=== PATIENT | female | born 1950 | race Caucasian/White ===

== ENCOUNTER 2022-02-25 19:42 | Emergency (ER) | payer MEDICARE, SELFPAY ==
[2022-02-25 19:43] VITALS: BP 168/75; PULSE 61; RESP 15; TEMP 36.1; O2SAT 96; BMI 48.4
--- NOTE | 2022-02-25 19:49 | RAD_ITS ---
STUDY: XR Knee Complete 4 Views or More 02/25/2022 8:34 PM REASON FOR EXAM: Female, 71 years old. INJURY TECHNIQUE: XR Knee Complete 4 Views or More LEFT COMPARISON: None FINDINGS: Normal visualized distal femur. Normal visualized proximal tibia and fibula. Normal proximal tibiofibular articulation. There is mild degenerative arthrosis of the medial femorotibial compartment. There is mild degenerative arthrosis of the lateral femorotibial compartment. There is moderate degenerative arthrosis of the patellofemoral articulation. The soft tissue structures are unremarkable. RAD/Knee 4 or More Views IMPRESSION: Degenerative arthrosis. Electronically Signed: Tushar Cummings MD at 20:35 EDT ,
--- NOTE | 2022-02-25 20:05 | RAD_ITS ---
STUDY: XR Ankle Min 3 Views REASON FOR EXAM: Female, 71 years old. ANKLE PAIN TECHNIQUE: XR Ankle Min 3 Views LEFT COMPARISON: None. FINDINGS: Normal visualized distal tibia and fibula. Normal medial and lateral malleoli. Degenerative findings of the ankle mortise. There is an enthesophyte involving the posterior superior calcaneus at the site of insertion of the Achilles tendon. The visualized subtalar, talonavicular, calcaneocuboid and tarsal articulations are normal. There is a plantar calcaneal spur. There is soft tissue swelling around the ankle. RAD/Ankle min 3 Views IMPRESSION: There is soft tissue swelling. Electronically Signed: Tushar Cummings MD at 20:35 EDT ,
--- NOTE | 2022-02-25 20:27 | EDS_ITS ---
HPI History of Present Illness Chief Complaint: Lower Extremity Injury Informant: patient Onset/Context/Timing Onset: Today Current Severity: Mild Maximum Severity: Moderate Narrative Narrative: Patient presents secondary to left knee and ankle injury. She states that she twisted her left knee and felt a pop. She then rolled her left ankle. She has difficulty ambulating. She has not yet taken anything for pain. PFSH PFS Medical History Coronary artery disease Home Medications hydrocodone-acetaminophen 5-325mg 5mg-325mg 1 tab PO Q6H PRN pain 3 days #10 tabs 02/25/22 [Rx Last Taken Unknown] Allergy/AdvReac Type Severity Reaction Status Date / Time No Known Allergies Allergy Verified 02/25/22 19:47 Surgical History H/O heart artery stent Social History Smoking Status: Never smoker ROS ROS ED Constitutional Constitutional ED: Denies chills or fever(s) Eyes Eyes: Denies change in vision or discharge from eye(s) ENT ENT ED: Denies discharge from eye(s), rhinorrhea or sore throat Cardiovascular Cardiovascular: Denies chest pain or palpitations Respiratory/Chest Respiratory/Chest: Denies cough or dyspnea Gastrointestinal Gastrointestinal: Denies abdominal pain, diarrhea, nausea or vomiting Genitourinary Genitourinary ED: Denies dysuria Musculoskeletal Musculoskeletal: Reports extremity pain; Denies back pain Integumentary Denies Abrasions or rash Neurologic Neurologic: Denies headache(s) or weakness Psychiatric Psychiatric: Denies anxiety or depression Allergic/Immunologic Allergic/Immunologic ED: Denies lip swelling or urticaria EXAM Physical Exam Const Vital Signs: 02/25/22 19:43 Temperature 97.0 F L Temperature Source Temporal Pulse Rate 61 Respiratory Rate 15 Blood Pressure 168/75 H Blood Pressure Mean 106 Pulse Ox 96 Oxygen Delivery Method Room Air Positive well nourished and well developed General Appearance ED: well developed HEENT Reports normocephalic and head/scalp atraumatic Eyes PERRL and EOMs intact bilaterally Neck supple Chest Wall inspection of chest normal and palpation of chest normal Resp normal respiratory effort and clear to auscultation bilaterally Cardio regular rate and regular rhythm GI normal to inspection, nondistended, normoactive bowel sounds Palpation: soft Extremity Extremity Narrative: Mild tenderness outpatient over the anterior left knee and lateral left ankle. Minimal edema noted. No abrasions or ecchymosis. Decreased range of motion secondary to pain. No joint laxity noted. Neuro oriented x3 and no sensory deficits noted Sensorium / Orientation: alert Psych mental status grossly normal Skin no rashes or lesions noted MDM MDM MDM Narrative Medical decision making narrative: Patient was given Cecilton for pain. X-rays of the left knee and left ankle were obtained per nursing protocol. Radiography Diagnostic Testing: Clinical Impression(s) from Imaging Studies Knee X-Ray 02/25/22 19:49 IMPRESSION: Degenerative arthrosis. Electronically Signed: Tushar Cummings MD at 20:35 EDT , Ankle X-Ray 02/25/22 20:05 IMPRESSION: There is soft tissue swelling. Electronically Signed: Tushar Cummings MD at 20:35 EDT , Treatment and Re-Evaluation Narrative: X-rays of the left ankle and left knee per my interpretation reveal no obvious fracture. Arthritic changes are noted. Radiology interpretation is reviewed and agrees. Patient did get up and attempt to ambulate with nursing staff. They states she will admitted about 5 feet and then required wheelchair. At this time patient is sitting with her leg propped up. She does not feel that she needs to be admitted and her will be able to help her at home. She has a walker that she can use at home. She has an appointment with her orthopedic doctor next week and feels that if she calls him tomorrow she can be seen sooner. She will be given a prescription for Cecilton that we sent to [facility] [place] [facility] for her. Discharge Plan Triage Chief Complaint: Lower Extremity Injury ED Provider: Reyna Landon Dx/Rx/DC Orders Clinical Impression: Fall, Left knee sprain, Left ankle sprain Instructions: ED Knee Sprain, ED Ankle Sprain (Adult) Prescriptions: New hydrocodone-acetaminophen 5-325 mg tablet 1 tab PO Q6H PRN (Reason: pain) 3 Days Qty: 10 0RF Primary Care Provider: CIERRA LEONG Referrals: CIERRA LEONG [Other] Activity Restrictions/Additional Instructions: Follow-up with your orthopedic doctor as discussed. Disposition Disposition: Home, Self Care
[2022-02-25] MEDS: HYDROcodone Bitartrate/Apap 5/325 Tablet PO (20:33)
--- NOTE | 2022-02-25 21:28 | ED.RN ---
THIS RN ATTEMPTS TO AMBULATE PATIENT TO RESTROOM WITH WALKER. PT AMBULATES 5 FEET AND REQUIRES TO SIT IN A WHEELCHAIR TO GET TO THE RESTROOM. DR. ROONEY NOTIFIED.
[2022-02-25 21:41] VITALS: RESP 18
== END 2022-02-25 21:44 | disposition home or self-care (01) ==
PROVIDERS: Emergency Provider Emergency Medicine; Visit Provider Emergency Medicine
DX: S83.92XA Sprain of unspecified site of left knee, initial encounter (principal); S93.402A Sprain of unspecified ligament of left ankle, initial encounter; X50.1XXA Overexertion from prolonged static or awkward postures, initial encounter
CPT/HCPCS: 73564; 73610; 99283

== ENCOUNTER → 2022-09-01 | Outpatient (CLI) | payer MEDICARE, SELFPAY ==
--- NOTE | 2022-09-01 12:54 | BI_ITS ---
MAMMOGRAPHY - BILATERAL SCREENING REASON FOR EXAM: Female, 71 years old. Routine annual screening examination. PERTINENT HISTORY: Sister with breast cancer. TECHNIQUE: Digital bilateral breast ryan (3D mammographic acquisition) in the CC and MLO projections. 2-D mediolateral oblique (MLO) and craniocaudad (CC) views of both breasts were obtained. CAD: Full Field Digital Mammography with Computer Added Detection was performed. COMPARISON: Comparison is made with prior examination dated December 06, 2020. FINDINGS: Breast Composition: The breasts are almost entirely fatty. There are no dominant masses or suspicious calcifications. Stable small benign-appearing bilateral axillary lymph. No other significant abnormalities are identified. There has been no significant change since the prior study. BI/SCRN MAMM (CAD)W/RYAN BILAT IMPRESSION: Stable bilateral screening mammogram. Yearly follow-up mammogram recommended. (A) ASSESSMENT CATEGORY: BIRADS Category 2: Benign. A letter regarding these results will be sent to the patient by the facility within 30 days. Approximately 10% of breast cancers are not detected by mammography. A normal mammogram should not delay biopsy of a clinically suspicious abnormality. [id number] Electronically Signed: Pb Pozo MD at 14:13 EDT ,
== END | disposition home or self-care (01) ==
LOC: OPBI 12:49
DX: Z12.31 Encounter for screening mammogram for malignant neoplasm of breast (principal)
CPT/HCPCS: 77063; 77067

== ENCOUNTER → 2023-02-25 | Outpatient (CLI) | payer MEDICARE, SELFPAY ==
[2023-02-25 11:04] LABS: Vitamin D,25 Hydroxy 33.8 ng/mL
[2023-02-25 11:15] LABS: ALB/GLOB Ratio 0.9 RATIO (0.9-2.4); AST(SGOT) 16 U/L (15-37); Alanine Aminotransfer ALT/SGPT 21 U/L (13-56); Albumin, Serum 3.5 g/dL (3.2-5.0); Alkaline Phosphatase 98 U/L (45-117); Anion Gap 2 (5-15); BUN 13 mg/dL (7-18); BUN/Creat Ratio 14.7 RATIO (10-20); Calcium,Total 9.1 mg/dL (8.5-10.1); Chloride 107 mmol/L (98-107); Cholesterol 148 mg/dL (200); Creatinine, Serum 0.88 mg/dL (0.55-1.02); EST Glomerular Filtration Rate 66 mL/min (>60); Est Glom Filt Rate - Afr Amer 80 mL/min (>60); Globulin 4.1 g/dL (2.2-4.2); Glucose 90 mg/dL (74-106); High Density Lipoprotein 62 mg/dL; Potassium 4.4 mmol/L (3.5-5.1); Protein, Total 7.6 g/dL (6.4-8.2); Sodium Level 139 mmol/L (136-145); Triglycerides 75 mg/dL; Very Low Density Lipoprotein 15 mg/dL (5-40)
== END | disposition home or self-care (01) ==
DX: E78.2 Mixed hyperlipidemia (principal); E55.9 Vitamin D deficiency, unspecified
CPT/HCPCS: 36415; 80053; 80061; 82306

== ENCOUNTER → 2023-04-13 | Outpatient (CLI) | payer MEDICARE, SELFPAY ==
--- NOTE | 2023-04-13 07:01 | ECHOCS_ITS ---
Reason For Study: CAD/ASHD Procedure This was a 2D Doppler, Color Flow transthoracic echocardiogram. The study was technically difficult. Contrast injection was performed. Exam performed in department. Left Ventricle Normal LV size. Left ventricular systolic function is normal. The estimated ejection fraction is 55 %. No regional wall motion abnormalities noted. Right Ventricle Normal RV size. Normal systolic function. Atria The left atrium is mildly enlarged. Normal right atrium. Mitral Valve Normal mitral valve. Tricuspid Valve Normal tricuspid valve. Mild tricuspid valve insufficiency. Pulmonary artery systolic pressure is 30 mmHg. Aortic Valve The aortic valve is not well visualized. Pulmonic Valve Normal pulmonic valve. Great Vessels Normal aortic root. The pulmonary artery is normal size. Normal inferior vena cava. Pericardium/Pleural No pericardial effusion. Medication Diluted definity 2.5ml given slow IV push to enhance endocardial definition. MMode/2D Measurements & Calculations LVIDd: 4.3 cm IVSd: 1.2 cm Ao root diam: 3.5 cm LVIDs: 3.6 cm LVPWd: 1.1 cm FS: 15.4 % LAV(MOD-bp): 85.8 ml LVAd ap4: 35.0 cm2 SV(MOD-sp4): 73.3 ml LAV(MOD-bp) Indexed: 40.2 ml/m2 LVLd ap4: 7.8 cm LAV(MOD-sp2): 82.7 ml EDV(MOD-sp4): 130.4 ml LAV(MOD-sp4): 78.1 ml EDV(sp4-el): 133.6 ml LVAs ap4: 21.5 cm2 LVLs ap4: 6.7 cm ESV(MOD-sp4): 57.1 ml ESV(sp4-el): 58.7 ml EF(MOD-sp4): 56.2 % EF(sp4-el): 56.1 % SV(sp4-el): 74.9 ml LA A4 area: 24.0 cm2 LA dimension(2D): 4.2 cm RA A4 area: 17.9 cm2 TAPSE: 2.3 cm Time Measurements MV dec time: 0.20 sec Doppler Measurements & Calculations MV E max mahin: 77.8 cm/sec Lat Peak E' Mahin: 9.2 cm/sec Med Peak E' Mahin: 4.2 cm/sec MV A max mahin: 73.0 cm/sec E/E' lat: 8.4 E/E' med: 18.5 MV E/A: 1.1 MV V2 max: 71.1 cm/sec MV dec slope: 399.0 cm/sec2 Ao V2 max: 144.3 cm/sec MV max P.0 mmHg Ao max P.3 mmHg MV V2 mean: 44.8 cm/sec Ao V2 mean: 92.9 cm/sec MV mean P.91 mmHg Ao mean P.1 mmHg MV V2 VTI: 29.4 cm Ao V2 VTI: 34.7 cm AV (velocity ratio): 0.75 LV V1 max: 107.0 cm/sec PA V2 max: 77.5 cm/sec TR max mahin: 254.3 cm/sec LV V1 max P.6 mmHg PA V2 mean: 51.0 cm/sec TR max P.9 mmHg LV V1 mean P.6 mmHg LV V1 mean: 75.2 cm/sec LV V1 VTI: 26.0 cm ECHO/Echo Complete W/ Contrast Interpretation Summary Normal LV size. Left ventricular systolic function is normal. The estimated ejection fraction is 55 %. Contrast injection was performed. Ordering Physician: Keith Roman Referring Physician: Keith Roman Performed By: Radha Dos Santos RCS
--- NOTE | 2023-04-13 14:00 | STRESSREP ---
Stress Test Report Pharmacologic myocardial perfusion stress test. 72-year-old lady with a history of chest pain Resting EKG demonstrates sinus rhythm with a rate of 60 bpm. Resting blood pressure is 134/72 mmHg. 0.4 mg of regadenoson was infused per usual protocol followed by rapid intravenous saline flush injection. Continuous EKG monitoring was performed. The maximum heart rate was 85 bpm which was 58% of max impacted heart rate the maximum workload was 1 metabolic equivalent. At rest there were no ST or T wave changes noted to suggest ischemia and at peak infusion nonspecific ST changes were noted which did not meet the criteria for ischemia. No clinical angina is noted. The final blood pressure was 114/50 mmHg. Myocardial perfusion protocol. 15 mCi of technetium 99m sestamibi was injected at rest. 0.4 mg of regadenoson was infused per usual protocol. At peak infusion 45.0 mCi of technetium 99m sestamibi was injected stress images were obtained stress and rest images were reconstructed and compared in the short axis vertical long and horizontal long axis. Gated images were also obtained. Perfusion SPECT analysis: Review of the stress images demonstrate normal uptake of tracer noted in all areas of the myocardium. There is reduction of uptake noted in the mid anterior wall on the stress images. The resting images similar demonstrated normal uptake of tracer noted in all areas of the myocardium. The above is suggestive of mid anterior ischemia. Gated SPECT analysis: The gated ejection fraction is 71. Conclusion: Abnormal pharmacologic myocardial perfusion stress test. There is anterior myocardial ischemia present. Preserved ejection fraction.
== END | disposition home or self-care (01) ==
PROVIDERS: Referring Provider Internal Medicine Cardiovascular Disease; Visit Provider Internal Medicine Cardiovascular Disease
DX: I25.10 Atherosclerotic heart disease of native coronary artery without angina pectoris (principal)
CPT/HCPCS: 78452; 93017; 93306; A9500; Q9957; A4216; C8929; J2785

== ENCOUNTER 2023-06-08 09:17 | Day surgery (SDC) | payer MEDICARE, SELFPAY ==
--- NOTE | 2023-05-13 10:22 | RAD_ITS ---
STUDY: X-RAY CHEST REASON FOR EXAM: Female, 72 years old. Preop for heart catheter TECHNIQUE: PA and lateral views of the chest. COMPARISON: None. FINDINGS: The lungs are clear and expanded. There is no demonstrated pleural abnormality. Normal size heart. Normal mediastinum and zaire. Normal visualized pulmonary arteries. There is atherosclerotic calcification of the aortic arch with tortuosity. There are diffuse degenerative changes of the visualized thoracic spine. Replaced left glenohumeral joint free of complication There is no demonstrated abnormality of the visualized soft tissue structures of the upper abdomen. RAD/Chest PA and Lateral IMPRESSION: No acute pulmonary process Electronically Signed: Gumaro Lopez MD at 10:49 EST ,
[2023-05-13 10:32] LABS: Absolute Lymphocyte Count 3.03 X10^3/uL (0.83-4.51); Basophil# 0.04 X10^3/uL; Basophil% 0.5 % (0-1); Eosinophil# 0.25 X10^3/uL; Eosinophils% 3.1 % (0-5); Hemoglobin 13.6 g/dL (12.0-15.0); Lymphocyte # 3.03 X10^3/ul (0.83-4.51); Mean Corp Hgb Conc 30.9 g/dL (32-36); Mean Corpuscular Hgb 28.6 pg (27.0-32.0); Mean Corpuscular Volume 92.6 fL (81-99); Mean Platelet Vol. 8.8 fl (6.2-12.0); Monocyte# 0.61 X10^3/uL; Monocyte% 7.6 % (0-10); NRBC Flagged by Analyzer 0 % (0-5); Neutrophil # 4.03 X10^3/uL (2.7-7.7); Neutrophil % 50.5 % (47-70); Platelet Count 285 K/mm3 (150-450); RBC Distribution Width CV 13.7 % (11.6-14.6); RBC Distribution Width SD 46.9 fl (35.1-43.9); Red Blood Count 4.75 M/mm3 (4.2-5.4)
[2023-05-13 11:00] LABS: Anion Gap 2 (5-15); BUN 20 mg/dL (7-18); BUN/Creat Ratio 23.6 RATIO (10-20); Calcium,Total 9.2 mg/dL (8.5-10.1); Chloride 108 mmol/L (98-107); Creatinine, Serum 0.85 mg/dL (0.55-1.02); EST Glomerular Filtration Rate 70 mL/min (>60); Est Glom Filt Rate - Afr Amer 84 mL/min (>60); Glucose 98 mg/dL (74-106); Potassium 4.2 mmol/L (3.5-5.1); Sodium Level 140 mmol/L (136-145)
--- NOTE | 2023-05-19 16:08 | HP.PCM_ITS ---
History and Physical Date of Admission: 05/29/23 This is a 72-year-old lady who presents today for a cardiac catheterization, following an abnormal stress test. She has a history of coronary artery disease, hypertension, hyperlipidemia status post PCI remotely who underwent a pharmacologic stress test in January 2020 demonstrating apical ischemia. She subsequently underwent a cardiac catheterization with demonstrated preserved left ventricular systolic function, left main coronary artery which was noted to be normal, left circumflex artery with 20 to 30% discrete proximal plaque, second obtuse marginal branch with ostial 50% stenosis, tiny third obtuse marginal branch posterior descending artery and obtuse marginal. The left anterior descending artery had mild calcification in the proximal LAD with an eccentric 50% stenosis and the vessel continued with no high-grade stenosis. The right coronary artery was previously stented and had mild diffuse 40% in- stent stenosis. Medical therapy was recommended. She has continued the same and has done well denying any chest pain or shortness of breath or paroxysmal nocturnal dyspnea or pedal edema. She does have some dyspnea on exertion however. Her blood pressure has been under good control. She presents here for an evaluation and continued care because she is relocating to the area. Intake Vital Signs See EMR Allergies See EMR Medications See EMR PFSH Medical History Barretts esophagus Carpal tunnel syndrome Cervical disc disorder Chronic GERD Coronary arteriosclerosis in [place] artery Coronary artery disease Depressive disorder DJD (degenerative joint disease) Essential (primary) hypertension Hiatal hernia Hypothyroidism Mixed hyperlipidemia Steatosis of liver Vitamin D deficiency Surgical History H/O heart artery stent H/O tubal ligation History of cholecystectomy History of PTCA Family History Sister Breast cancer Social History Smoking Status: Never smoker ROS Const Const: Positive for headache(s) and difficulty sleeping; Negative for fatigue, weakness or daytime sleepiness Eyes Eyes: Negative for change in vision ENT ENT: Positive for headache(s); Negative for dizziness or Nosebleed/epistaxis Cardio Chest Pain: No Palpitations: No Edema: Bilateral (BLE sometimes ) Resp Respiratory: Positive for SOB with activity; Negative for SOB at rest, SOB orthopnea\SOB lying down or Cough GI GI: Negative nausea, vomiting or heartburn Neuro Neuro: Positive for headache(s); Negative for dizziness, lightheadedness, near syncope or weakness Endo Endo: Negative for fatigue Cardiology Exam Const Appearance: cooperative, healthy appearing, no acute distress, well developed and well groomed Nutritional Appearance: average body habitus and well nourished Orientation: alert, awake and oriented x3 Head Head: normal to inspection, normocephalic and atraumatic Ears: hearing grossly normal bilaterally and external ears normal Nose: external nose normal, nares normal, nasal mucous membranes and turbinates normal, septum normal and no nasal discharge Face and Sinus: face symmetric Mouth: oral mucosae normal, tongue normal, oropharynx normal and moist mucous membranes Teeth and gingiva: dentition normal Throat: posterior oropharynx normal, tonsils normal and uvula midline Eyes General: appearance normal, both eyes and all related structures Eyelids: eyelids normal Conjunctivae: conjunctivae normal Pupils: PERRL, normal by confrontation and accommodation normal EOM: EOM intact bilaterally Neck Neck: normal visual inspection, trachea midline and no JVD JVD: +5 Carotids: normal carotid upstroke and bounding pulses Chest Chest inspection: normal inspection of the chest, symmetric chest movement and normal respiratory effort Auscultation: Bilateral: Clear to Auscultation Cardio Palpation: normal PMI Rate: regular rate Rhythm: regular rhythm Heart sounds: S1 normal, S2 normal and normal, physiologic split S2; Negative rub, gallop or murmur GI GI: normal to inspection, soft, no hepatosplenomegaly and bowel sounds present Neuro General: patient alert, patient awake, patient oriented x3, gait normal, moves all extremities and no focal sensory deficit Skin Skin: no rashes or lesions noted Extremities Pulses: Normal: Right Femoral Pulse, Left Femoral Pulse, Right Dorsalis Pedis Pulse, Left Dorsalis Pedis Pulse, Right Posterior Tibial Pulse, Left Posterior Tibial Pulse, Right Radial Pulse and Left Radial Pulse Lower Extremity Edema: None: Bilateral Musculoskel Musculoskeletal: No joint tenderness Psych Psychological: normal affect Supplemental Info Supplemental Information Stress Test (Lexiscan) 01/19/20 ([facility]) 01/19/20: Conclusion There is small sized area of moderate ischemia involving the mid anterior wall Post stress: Global systolic function is normal. EF=72%. The LV end-diastolic volume was 95ccs. The LV end-systolic volume was 27ccs. The stroke volume was 68ccs. At rest, the ejection fraction was 68%. Left Heart Cath 01/27/20 ([facility]): Conclusion Normal LV ejection fraction of 65-70% without abnormal wall motion abnormality. Borderline elevated LVEDP 17 mmHg Nonobstructive coronary artery disease Proximal LAD 50% discrete stenosis with mild calcification Mild in-stent restenosis less than 40% in the mid RCA without any significant angiographic stenosis Left circumflex artery, OM2, subbranch (upper branch, very small sized vessel) has 50-60% ostial stenosis Stress test from 04/13/2023: Pharmacologic myocardial perfusion stress test. 72-year-old lady with a history of chest pain Resting EKG demonstrates sinus rhythm with a rate of 60 bpm. Resting blood pressure is 134/72 mmHg. 0.4 mg of regadenoson was infused per usual protocol followed by rapid intravenous saline flush injection. Continuous EKG monitoring was performed. The maximum heart rate was 85 bpm which was 58% of max impacted heart rate the maximum workload was 1 metabolic equivalent. At rest there were no ST or T wave changes noted to suggest ischemia and at peak infusion nonspecific ST changes were noted which did not meet the criteria for ischemia. No clinical angina is noted. The final blood pressure was 114/50 mmHg. Myocardial perfusion protocol. 15 mCi of technetium 99m sestamibi was injected at rest. 0.4 mg of regadenoson was infused per usual protocol. At peak infusion 45.0 mCi of technetium 99m sestamibi was injected stress images were obtained stress and rest images were reconstructed and compared in the short axis vertical long and horizontal long axis. Gated images were also obtained. Perfusion SPECT analysis: Review of the stress images demonstrate normal uptake of tracer noted in all areas of the myocardium. There is reduction of uptake noted in the mid anterior wall on the stress images. The resting images similar demonstrated normal uptake of tracer noted in all areas of the myocardium. The above is suggestive of mid anterior ischemia. Gated SPECT analysis: The gated ejection fraction is 71. Conclusion: Abnormal pharmacologic myocardial perfusion stress test. There is anterior myocardial ischemia present. Preserved ejection fraction. Assessment and Plan Assessment and Plan (1) Coronary artery disease: Status: Acute Plan: She does have a history of coronary artery disease status post previous angioplasty and stenting. Her stress test from 04/13/2023 was abnormal, and d emonstrated anterior myocardial ischemia. Would like to proceed with a cardiac catheterization to further assess this. Depending on results, further recommendations will be made. (2) Abnormal Stress Test: Will proceed with cardiac catheterization.
[2023-05-28 08:23] VITALS: BMI 47.2
--- NOTE | 2023-06-08 11:54 | CL.D_ITS ---
Patient Name: ANDREA TREVINO Study Date: 06/08/2023 Performing: Keith Roman MD Ht: 62 inches 157.48 cm : 1950 Wt: 258.01 lbs 117.03 kg Age: 72 Gender: female BSA: 2.13 PROCEDURE(S) PERFORMED DC01-(68801)LHC/COR/LV CLINICAL PROFILE AND INDICATIONS Indications: Pre-Operative Evaluation Heart Failure: None Stress/Imaging Date: 04/13/23Stress Test with SPECT MPI: Positive Low Risk CAD Presentations: Symptom unlikely to be ischemic. CONCLUSIONS Previously placed stent is noted to be patent in the right coronary artery and the left anterior descending artery with mild to moderate disease. Stress test was likely false positive. RECOMMENDATIONS Medical therapy DESCRIPTION OF PROCEDURE The patient arrived to the procedure lab. The risks and benefits of the procedure as well as a full description of our services here and current unavailability of surgical backup were fully explained to the patient and/or their significant other prior to the catheterization. The Timeout was completed, verifying the correct patient and procedure. The patient's procedural site was prepped and draped in the usual fashion. Local anesthetic was given subcutaneously to right radial region with Lidocaine 2%. Using a modified Seldinger technique, arterial access was obtained via the right radial artery, a 6Fr sheath was inserted. Left Coronary Artery selective angiography was performed in multiple views using a 5 Fr. 4.0 Hamilton catheter. Right Coronary Artery selective angiography was then performed in multiple views using a 5 Fr. 4.0 Hamilton catheter. Left Ventriculography was performed in GORE projection using a 5 Fr. Pigtail catheter. LV to AO pullback pressures were then recorded.The arterial sheath was pulled and a TR Band was applied for hemostasis CORONARY ANGIOGRAPHY DOMINANCE: Right Dominant LEFT HEART ASSESSMENT Left Ventricular Ejection Fraction: by LV Gram 60 % Normal LV wall motion Normal Left Ventricular systolic function LEFT MAIN: Angiographically normal LEFT ANTERIOR DESCENDING ARTERY: Mild calcification, Moderate luminal irregularities up to 50% CIRCUMFLEX ARTERY: Mild luminal irregularities RIGHT CORONARY ARTERY: Previously placed stent is patent COMPLICATIONS No Complications PROCEDURE MEDICATIONS Versed 1 mg IV Fentanyl 50 mcg IV Fentanyl 25 mcg IV Oxygen: 2 L/min via nasal cannula Baby Aspirin (81mg) 1 Tabs PO @ 06/08/2023 09:52:37 Heparin given IA 06/08/2023 11:21:51 Verapamil 2.5mg, Ntg 100mcgs, 3000 units of Heparin given IA 06/08/2023 11:21:51 SUMMARY OF HEMODYNAMIC DATA Time AIR REST ECG 09:43:16 ECG 11:05:27 Art 114/54 (74) 11:23:12 AO 152/65 (99) SA 11:35:55 LV 153/12, 24 11:44:08 LV 143/11, 21 11:44:14 LV 151/13, 24 11:44:47 LVp 149/8, 17 11:44:53 AOp 161/57 (98) 11:44:58 AIR REST 11:51:00 Signed By Keith Roman MD On 06/08/2023 11:53:53 Keith Roman MD
== END 2023-06-08 13:35 | disposition home or self-care (01) ==
LOC: CLSP 09:18
PROVIDERS: Nurse Practitioner Family; Referring Provider Internal Medicine Cardiovascular Disease; Visit Provider Internal Medicine Cardiovascular Disease
DX: I25.10 Atherosclerotic heart disease of native coronary artery without angina pectoris (principal); I10 Essential (primary) hypertension; E78.5 Hyperlipidemia, unspecified; K21.9 Gastro-esophageal reflux disease without esophagitis; E03.9 Hypothyroidism, unspecified; E55.9 Vitamin D deficiency, unspecified; Z79.82 Long term (current) use of aspirin; Z79.899 Other long term (current) drug therapy; Z95.5 Presence of coronary angioplasty implant and graft
CPT/HCPCS: 36415; 71046; 80048; 85025; 93458; 99152; 99153; J7040; C1769; C1894; Q9967

== ENCOUNTER → 2023-06-30 | Outpatient (CLI) | payer MEDICARE, SELFPAY ==
--- OUTSIDE RECORDS SUMMARY | 2023-06-30 11:44 | XMS RPT_ITS | CCD ---
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 Name Role Phone Vonnie Mcdaniels Attending Unavailable RODOCOY, PADMINI Unavailable Unavailable RODOCOY, PADMINI Unavailable Unavailable MKPARU, CAS Unavailable SANTI SABILLON Unavailable RODOCOY, PADMINI Unavailable Unavailable RODOCOY, PADMINI Unavailable Unavailable MKPARU, CAS Unavailable SANTI SABILLON Unavailable RODOCOY, PADMINI Unavailable Unavailable RODOCOY, PADMINI Unavailable Unavailable MKPARU, CAS Unavailable RAMANDEEP SANTI Unavailable RODOCOY, PADMINI Unavailable Unavailable RODOCOY, PADMINI Unavailable Unavailable MKPARU, CAS Unavailable RAMANDEEP SANTI Unavailable RODOCOY, PADMINI Unavailable Unavailable RODOCOY, PADMINI Unavailable Unavailable MKPARU, CAS Unavailable RODOCOY, PADMINI Unavailable Unavailable RODOCOY, PADMINI Unavailable Unavailable MKPARU, CAS Unavailable RODOCOY, PADMINI Unavailable Unavailable RODOCOY, PADMINI Unavailable Unavailable MKPARU, CAS Unavailable RODOCOY, PADMINI Unavailable Unavailable RODOCOY, PADMINI Unavailable Unavailable MKPARU, CAS Unavailable Rodocoy, Padmini A Primary Care Unavailable Marquis Ramirez Attending Unavailable Rodocoy, Padmini A Attending Unavailable Rodocoy, Padmini A Primary Care Unavailable Rodocoy, Padmini A Attending Unavailable Rodocoy, Padmini A Primary Care Unavailable RODOCOY, PADMINI Unavailable Unavailable RODOCOY, PADMINI Unavailable Unavailable MKPARU, CAS Unavailable RODOCOY, PADMINI Unavailable Unavailable RODOCOY, PADMINI Unavailable Unavailable MKPARU, CAS Unavailable DR YVONNE OLEARY DPM Attending Unavailabl e Allergies Allergy Classification Reported Allergen(s) Allergy Type Date of Onset Reaction(s) Facility (1 source) Adhesive Tape Drug allergy (disorder) 8 [facility] ([place]) Repository (10 sources) Aspirin; Translations: [ASPIRIN] Drug Allergy nausea [facility], [facility] (10 sources) atorvastatin; Translations: [LIPITOR] Drug Allergy myalgias (muscle pain) [facility], [facility] Medications Current Medications Medication Drug Class(es) Dates Sig (Normalized) Sig (Original) acetaminophen 500 mg / HYDROcodone bitartrate 5 mg oral tablet (10 sources) Opioid Agonist Start: 02-12-2012 take 1 tablet by mouth every six hours as needed Vicodin 5 mg-500 mg tablet Take 1 tablet every 6 hours by oral route as needed. 02/12/2012 active albuterol 0.83 mg/ml inhalation solution (14 sources) beta2-Adrenergic Agonist Start: 09-19-2022 take 3 mL by inhalation every four to six hours as needed albuterol sulfate 2.5 mg/3 mL (0.083 %) solution for nebulization Inhale 3 mL every 4-6 hours by nebulization route as needed. 09/19/2022 active Completed/Discontinued Medications Medication Drug Class(es) Dates Sig (Normalized) Sig (Original) acetaminophen 325 mg / oxyCODONE hydrochloride 5 mg oral tablet (7 sources) Opioid Agonist End: 11-15-2021 take 1 tablet by mouth every four to six hours oxycodone-acetami nophen 5 mg-325 mg tablet Take 1 tablet every 4-6 hours by oral route. 11/15/[address] Beltran Acyclovir (10 sources) Herpesvirus Nucleoside Analog DNA Polymerase Inhibitor, Herpes Simplex Virus Nucleoside Analog DNA Polymerase Inhibitor, Herpes Zoster Virus Nucleoside Analog DNA Polymerase Inhibitor End: 09-19-2020 acyclovir 09/19/2020 completed amoxicillin 500 mg oral tablet (10 sources) Penicillin-class Antibacterial Start: 05-28-2018 End: 11-23-2018 take 1 tablet by mouth every eight hours amoxicillin 500 mg tablet Take 1 tablet every 8 hours by oral route for 7 days. 05/28/2018 11/23/2018 completed aspirin 325 mg oral tablet (7 sources) Platelet Aggregation Inhibitor, Nonsteroidal Anti-inflammatory Drug End: 11-15-2021 take 1 capsule by mouth twice daily aspirin 325 mg capsule Take 1 capsule twice a day by oral route. 11/15/2021 completed azithromycin 250 mg oral tablet (10 sources) Macrolide Antimicrobial Start: 11-19-2022 End: 02-18-2023 Zithromax Z-Korey 250 mg tablet as directed 02/11/2023 02/18/2023 completed Problems Active Problems Problem Classification Problem Date Documented Date Episodic/Chronic Abdominal hernia (10 sources) Hiatal hernia Episodic Coronary atherosclerosis and other heart disease (20 sources) Coronary atherosclerosis; Translations: [Coronary arteriosclerosis in [place] artery] Onset: 03-04-2021 Resolved: 08-18-2022 Chronic Disorders of lipid metabolism (18 sources) Mixed hyperlipidemia; Translations: [Mixed hyperlipidemia] Onset: 09-26-2020 Resolved: 03-02-2023 Chronic Esophageal disorders (20 sources) Gastroesophageal reflux disease; Translations: [Hall's esophagus] Onset: 02-13-2016 Chronic Essential hypertension (17 sources) Benign essential hypertension; Translations: [Essential (primary) hypertension] Onset: 09-26-2020 Resolved: 03-02-2023 Chronic Menopausal disorders (2 sources) Postmenopausal bleeding Onset: 09-26-2020 Resolved: 09-26-2020 Chronic Mood disorders (13 sources) Depressive disorder; Translations: [Other specified depressive episodes] Onset: 09-26-2020 Resolved: 08-18-2022 Chronic Nutritional deficiencies (17 sources) Vitamin D deficiency; Translations: [Vitamin D deficiency, unspecified] Onset: 03-07-2016 Resolved: 03-02-2023 Chronic Osteoarthritis (15 sources) Degenerative joint disease involving multiple joints; Translations: [Polyosteoarthritis, unspecified] Onset: 09-26-2020 Resolved: 03-02-2023 Chronic Other circulatory disease (1 source) Other specified symptoms and signs involving the circulatory and respiratory systems; Translations: [Other specified symptoms and signs involving the circulatory and respiratory systems] Onset: 09-19-2022 Episodic Other liver diseases (10 sources) Steatosis of liver Chronic Other lower respiratory disease (1 source) Shortness of breath; Translations: [Shortness of breath] Onset: 09-19-2022 Episodic Other nervous system disorders (10 sources) Carpal tunnel syndrome; Translations: [Carpal tunnel syndrome, unspecified upper limb] Chronic Other nutritional; endocrine; and metabolic disorders (1 source) Morbid obesity Onset: 09-26-2020 Resolved: 09-26-2020 Chronic Spondylosis; intervertebral disc disorders; other back problems (10 sources) Cervical disc disorder; Translations: [Cervical disc disorder, unspecified, unspecified cervical region] Chronic Thyroid disorders (16 sources) Acquired hypothyroidism; Translations: [Hypothyroidism, unspecified] Onset: 11-26-2018 Resolved: 03-02-2023 Chronic Unclassified (1 source) Cough, unspecified; Translations: [Cough, unspecified] Onset: 09-19-2022 Viral infection (10 sources) Disease caused by 2019-nCoV Onset: 05-23-2020 Past or Other Problems Problem Classification Problem Date Documented Da te Episodic/Chronic Abdominal pain (10 sources) Epigastric pain; Translations: [Epigastric pain] Resolved: 09-21-2014 Episodic Acute bronchitis (20 sources) Acute bronchitis; Translations: [Acute bronchitis, unspecified] Onset: 09-19-2022 Resolved: 09-19-2022 Episodic Administrative/social admission (1 source) Advance care planning; Translations: [Other specified counseling] Onset: 03-02-2023 Resolved: 03-02-2023 Episodic Allergic reactions (1 source) Contact dermatitis Onset: 10-02-2021 Resolved: 10-02-2021 Episodic Anxiety disorders (12 sources) Generalized anxiety disorder; Translations: [Anxiety] Onset: 04-03-2021 Resolved: 08-18-2022 Chronic Genitourinary symptoms and ill-defined conditions (10 sources) Dysuria Resolved: 01-06-2012 Episodic Immunizations and screening for infectious disease (1 source) Influenza vaccine needed; Translations: [Encounter for immunization] Onset: 03-02-2023 Resolved: 03-02-2023 Episodic Malaise and fatigue (20 sources) Malaise and fatigue; Translations: [Fatigue] Resolved: 09-21-2014 Episodic Nonspecific chest pain (20 sources) Chest pain; Translations: [Atypical chest pain] Resolved: 09-21-2015 Episodic Other aftercare (1 source) Long-term drug therapy; Translations: [Other route 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 driver (current) drug therapy] Onset: 08-18-2022 Resolved: 08-18-2022 Episodic Other connective tissue disease (10 sources) Disorder of rotator cuff Resolved: 09-21-2014 Episodic Other connective tissue disease (10 sources) Muscle pain Resolved: 09-21-2014 Episodic Other hematologic conditions (10 sources) ESR raised Resolved: 09-21-2014 Episodic Other lower respiratory disease (14 sources) Cough; Translations: [Cough] Onset: 09-19-2022 Resolved: 02-11-2023 Episodic Other nervous system disorders (10 sources) Holt's palsy; 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-2018 Episodic Other nervous system disorders (10 sources) Numbness of face Resolved: 09-21-2014 Episodic Other upper respiratory infections (10 sources) Acute sinusitis; Translations: [Acute sinusitis, unspecified] Resolved: 03-07-2014 Episodic Residual codes; unclassified (10 sources) Edema Resolved: 09-21-2014 Episodic Residual codes; unclassified (1 source) Edema of lower extremity Onset: 04-03-2021 Resolved: 04-03-2021 Episodic Spondylosis; intervertebral disc disorders; other back problems (20 sources) Backache; Translations: [Disorder of back] Onset: 08-18-2022 Resolved: 08-18-2022 Episodic Unclassified (1 source) Long-term drug therapy Onset: 04-03-2021 Resolved: 04-03-2021 Unclassified (1 source) Influenza vaccine needed Onset: 04-03-2021 Resolved: 04-03-2021 Unclassified (2 sources) Suspected disease caused by 2019-nCoV; Translations: [Contact with and (suspected) exposure to COVID-19] Onset: 02-11-2023 Resolved: 02-11-2023 Results Test Name Value Interpretation Reference Range Facil ity Vital Signs Date Time Vital Sign Value Performing Clinician Facility 03-02-2023 01:00-0400 Body height 158.75 cm Padmini Zimmerman [facility] 03-02-2023 01:00-0400 Body mass index (BMI) [Ratio] 46.8 kg/m2 Padmini Zimmerman [facility] 03-02-2023 01:00-0400 Body temperature 98 [degF] Padmini Zimmerman [facility] 03-02-2023 01:00-0400 Body weight 117.93 kg Padmini Zimmerman [facility] 03-02-2023 01:00-0400 Diastolic blood pressure 70 mm[Hg] Padmini Zimmerman [facility] 03-02-2023 01:00-0400 Heart rate 67 /min Padmini Zimmerman [facility] 03-02-2023 01:00-0400 SaO2% (BldA) [Mass fraction] 95 % Padmini Zimmerman [facility] 03-02-2023 01:00-0400 Systolic blood pressure 126 mm[Hg] Padmini Zimmerman [facility] 09-19-2022 01:00-0400 Body height 158.75 cm Ervin Quinteroeric [facility] 09-19-2022 01:00-0400 Body mass index (BMI) [Ratio] 4.8 kg/m2 Ervin Marin [facility] 09-19-2022 01:00-0400 Body mass index (BMI) [Ratio] 47.5 kg/m2 Ervin Marin [facility] 09-19-2022 01:00-0400 Body temperature 97 [degF] Ervin Marin [facility] 09-19-2022 01:00-0400 Body weight 11.97 kg Ervin Marin [facility] 09-19-2022 01:00-0400 Body weight 119.75 kg Ervin Marin [facility] 09-19-2022 01:00-0400 Diastolic blood pressure 72 mm[Hg] Ervin Marin [facility] 09-19-2022 01:00-0400 Heart rate 67 /min Ervin Marin [facility] 09-19-2022 01:00-0400 SaO2% (BldA) [Mass fraction] 97 % Ervin Marin [facility] 09-19-2022 01:00-0400 Systolic blood pressure 140 mm[Hg] Ervin Marin [facility] 08-18-2022 01:00-0400 Body height 158.75 cm Padmini Zimmerman [facility] 08-18-2022 01:00-0400 Body mass index (BMI) [Ratio] 48.6 kg/m2 Padmini Zimmerman [facility] 08-18-2022 01:00-0400 Body temperature 97 [degF] Padmini Zimmerman [facility] 08-18-2022 01:00-0400 Body weight 122.47 kg Padmini Zimmerman [facility] 08-18-2022 01:00-0400 Diastolic blood pressure 74 mm[Hg] Padmini Zimmerman [facility] 08-18-2022 01:00-0400 Heart rate 66 /min Padmini Zimmerman [facility] 08-18-2022 01:00-0400 SaO2% (BldA) [Mass fraction] 95 % Padmini Zimmerman [facility] 08-18-2022 01:00-0400 Systolic blood pressure 132 mm[Hg] Padmini Zimmerman [facility] 10-02-2021 01:00-0400 Body height 158.75 cm Padmini Zimmerman [facility] 10-02-2021 01:00-0400 Body mass index (BMI) [Ratio] 47.9 kg/m2 Padmini Zimmerman [facility] 10-02-2021 01:00-0400 Body temperature 98.1 [degF] Padmini Zimmerman [facility] 10-02-2021 01:00-0400 Body weight 120.66 kg Padmini Zimmerman [facility] 10-02-2021 01:00-0400 Diastolic blood pressure 76 mm[Hg] Padmini Zimmerman [facility] 10-02-2021 01:00-0400 Heart rate 70 /min Padmini Zimmerman [facility] 10-02-2021 01:00-0400 SaO2% (BldA) [Mass fraction] 98 % Padmini Zimmerman [facility] 10-02-2021 01:00-0400 Systolic blood pressure 148 mm[Hg] Padmini Zimmerman [facility] 04-03-2021 00:00-0500 Body height 158.75 cm Padmini Zimmerman [facility] 04-03-2021 00:00-0500 Body mass index (BMI) [Ratio] 48.7 kg/m2 Padmini Zimmerman [facility] 04-03-2021 00:00-0500 Body temperature 97.2 [degF] Padmini Zimmerman [facility] 04-03-2021 00:00-0500 Body weight 122.83 kg Padmini Zimmerman [facility] 04-03-2021 00:00-0500 Diastolic blood pressure 62 mm[Hg] Padmini Zimmerman [facility] 04-03-2021 00:00-0500 Heart rate 86 /min Padmini Zimmerman [facility] 04-03-2021 00:00-0500 SaO2% (BldA) [Mass fraction] 96 % Padmini Zimmerman [facility] 04-03-2021 00:00-0500 Systolic blood pressure 138 mm[Hg] Padmini Zimmerman [facility] 03-04-2021 01:00-0400 Body height 158.75 cm Ramone Weems [facility] 03-04-2021 01:00-0400 Body mass index (BMI) [Ratio] 48.7 kg/m2 Ramone Weems [facility] 03-04-2021 01:00-0400 Body temperature 97.5 [degF] Ramone Weems [facility] 03-04-2021 01:00-0400 Body weight 122.74 kg Ramone Repp [facility] 03-04-2021 01:00-0400 Diastolic blood pressure 80 mm[Hg] Ramone Repp [facility] 03-04-2021 01:00-0400 Heart rate 76 /min Ramone Repp [facility] 03-04-2021 01:00-0400 SaO2% (BldA) [Mass fraction] 95 % Ramone Repp [facility] 03-04-2021 01:00-0400 Systolic blood pressure 126 mm[Hg] Ramone Repp [facility] 09-26-2020 01:00-0400 Body height 158.75 cm Padmini Goemzkitty [facility], [facility] 09-26-2020 01:00-0400 Body mass index (BMI) [Ratio] 47.2 kg/m2 Padmini Erasmo [facility], [facility] 09-26-2020 01:00-0400 Body temperature 97.5 [degF] Padmini Erasmo [facility], [facility] 09-26-2020 01:00-0400 Body weight 118.84 kg Padmini Zimmerman [facility] 09-26-2020 01:00-0400 Diastolic blood pressure 82 mm[Hg] Padmini Parray [facility] 09-26-2020 01:00-0400 Diastolic blood pressure 68 mm[Hg] Padmini Zimmerman [facility], [facility] 09-26-2020 01:00-0400 Heart rate 72 /min Padmini Zimmerman [facility], [facility] 09-26-2020 01:00-0400 SaO2% (BldA) [Mass fraction] 97 % Padmini Zimmerman [facility], [facility] 09-26-2020 01:00-0400 Systolic blood pressure 138 mm[Hg] Padmini Parray [facility], [facility] 09-26-2020 01:00-0400 Systolic blood pressure 140 mm[Hg] Padmini Zimmerman [facility], [facility] Encounters Encounter Date Encounter Type Care Provider Facility Start: 03-05-2023 End: 03-06-[address] YVONNE OLEARY DPM Facility:B Start: 03-05-2023 End: 03-05-[address] YVONNE OLEARY DPM [facility] Start: 03-02-2023 Adult health examination Bozenariddhi joe Jasonkitty [facility] - [facility] Start: 03-02-2023 Padmini Zimmerman [facility] - [facility] Start: 02-11-2023 Padmini Zimmerman [facility] - [facility] Start: 09-19-2022 ambulatory Padmini Zimmerman Facili ty:[facility] Start: 09-19-2022 Office outpatient vi sit 15 minutes Ervin Marin [facility] - [facility] Start: 09-19-2022 [id number] [facility] - [facility] Start: 08-18-2022 Padmini Zimmerman [facility] - [facility] Start: 08-07-2022 ambulatory Padmini Zimmerman Facili ty:[facility] Start: 11-12-2021 ambulatory Padmini Zimmerman Facili ty:[facility] Start: 10-02-2021 Opscpy extnd rta dra valentin & scl deprsn i&r uni/bi Padmini Zimmerman [facility] - [facility] Start: 04-03-2021 Opscpy extnd rta dra valentin & scl deprsn i&r uni/bi Padmini Zimmerman [facility] - [facility] Start: 03-04-2021 Opscpy extnd rta dra valentin & scl deprsn i&r uni/bi Ramone Repp [facility] - [facility] Start: 09-26-2020 Opscpy extnd rta marcelle wing & scl deprsn i&r uni/bi Padmini Parray [facility] - [facility] Start: 06-15-2019 End: 06-15-2019 ambulatory Vonnie N Mcdaniels Facility:[facility] Procedures Date Procedure Procedure Detail Performing Clinician Start: 03-02-2023 End: 03-02-2023 Depression screening Padmini Parray Start: 08-18-2022 End: 08-18-2022 Screening mammography Padmini Parray Start: 03-14-2021 Padmini Parray Start: 03-04-2021 End: 03-04-2021 Pre-surgery evaluation Ramone Repp Start: 01-27-2020 Cardiac catheterization Start: 01-27-2020 Ecg routine ecg w/least 12 lds i&r only Start: 06-18-2019 Neuroplasty &/transpos median nrv carpal tunne Padmini Zimmerman Start: 06-15-2019 Hysteroscopy Padmini Parray Start: 07-16-2018 Padminikameron Gomezocoy Start: 07-16-2017 Padminikameron Gomezocoy Start: 02-06-2016 Esophagogastroduodenoscopy Padmini Parra y Start: 06-18-2015 Padminikameron Gomezocoy Start: 05-18-2014 Colonoscopy Padmini Zimmerman Start: 05-18-2009 Percutaneous transluminal coronary angioplasty [PTCA] Padmini Parray Plan of Treatment Date Care Activity Detail Author Start: 09-02-2023 20 MIN VISIT 20 MIN VISIT [facility] Start: 03-02-2023 Medicare AWV2 Medicare AWV2 [facility] Start: 03-02-2023 25-Hydroxyvitamin D3+25-Hydroxyvitamin D2 [Mass/volume] in Serum or Plasma [facility] (Scheduling) Start: 03-02-2023 CBC W Auto Differential panel - Blood [facility] (Scheduling) Start: 03-02-2023 Comprehensive metabolic 1999 panel - Serum or Plasma [facility] (Scheduling) Start: 03-02-2023 Lipid 1996 panel - Serum or Plasma [facility] (Scheduling) Start: 03-02-2023 Thyrotropin [Units/volume] in Serum or Plasma [facility] (Scheduling) Start: 02-11-2023 Nursing evaluation of patient and report Nurse Visit [facility] Start: 02-11-2023 Influenza virus A and B RNA and SARS-CoV-2 (COVID-19) N gene panel - Respiratory specimen by MADAN with probe detection In-Office Order Start: 09-19-2022 Patient encounter procedure SAME DAY URGENT VISIT [facility] Start: 09-19-2022 XR Chest 2 Views [facility] (Scheduling) Start: 09-19-2022 [facility] Start: 08-18-2022 20 MIN VISIT 20 MIN VISIT [facility] Start: 08-18-2022 25-Hydroxyvitamin D3+25-Hydroxyvitamin D2 [Mass/volume] in Serum or Plasma [facility] (Scheduling) Start: 08-18-2022 Comprehensive metabolic 2000 panel - Serum or Plasma [facility] (Scheduling) Start: 08-18-2022 Drugs of abuse 7 and Alcohol and Tricyclics panel - Urine by Screen method [facility] (Scheduling) Start: 08-18-2022 Lipid 1996 panel - Serum or Plasma [facility] (Scheduling) Start: 08-18-2022 MG Breast - bilateral Screening [facility] Start: 08-18-2022 Patient encounter procedure physical therapist referral [facility] Start: 08-18-2022 Xanax 0.25 mg tablet [facility] Start: 11-15-2021 20 MIN VISIT 20 MIN VISIT [facility] Start: 10-02-2021 Nursing evaluation of patient and report Nurse Visit [facility] Start: 10-02-2021 20 MIN VISIT 20 MIN VISIT [facility] Start: 04-03-2021 CMP, serum or plasma [facility] (Scheduling) Start: 04-03-2021 lipid panel, [facility] (Scheduling) Start: 04-03-2021 toxicology screen, urine [facility] (Scheduling) Start: 04-03-2021 vitamin D, 25-hydroxy, total, [facility] (Scheduling) Start: 04-03-2021 20 MIN VISIT 20 MIN VISIT [facility], [facility] Start: 03-04-2021 PREOPERATIVE CLEARANCE PREOPERATIVE CLEARANCE [facility] Start: 09-26-2020 CBC W Auto Differential panel - Blood [facility] (Scheduling) Start: 09-26-2020 CMP, serum or plasma [facility] (Scheduling) Start: 09-26-2020 lipid panel, [facility] (Scheduling) Start: 09-26-2020 TSH, serum or plasma [facility] (Scheduling) Start: 09-26-2020 vitamin D, 25-hydroxy, total, [facility] (Scheduling) Start: 09-26-2020 20 MIN VISIT [facility], [facility] [employer] Cholecystectomy [facility] Other bilateral liga tion and division of fallopian tubes Tubal Ligation [facility] Patient Education [facility] Immunizations Immunization Date Immunization Notes Care Provider Fa cility 03-02-2023 Fluad Quad (65yr up)(PF) 60 mcg (15 mcg x 4)/0.5mL IM syringe Padmini Rodocoy [facility] 07-10-2021 SARS-COV-2 (COVID-19 ) vaccine, mRNA, spike protein, LNP, preservative free, 100 mcg/0.5mL dose Padmini Rodocoy [facility] 04-03-2021 Fluad Quad [id number](65yr up)(PF) 60 mcg (15 mcg x 4)/0.5mL IM syringe Padmini Rodocoy [facility] 08-22-2020 SARS-COV-2 (COVID-19 ) vaccine, mRNA, spike protein, LNP, preservative free, 100 mcg/0.5mL dose Padmini Rodocoy [facility], [facility] 07-20-2020 SARS-COV-2 (COVID-19 ) vaccine, mRNA, spike protein, LNP, preservative free, 100 mcg/0.5mL dose Padmini Rodocoy [facility], [facility] 03-28-2020 Seasonal trivalent influenza vaccine, adjuvanted, preservative free Padmini Rodocoy [facility] 03-30-2019 Seasonal trivalent influenza vaccine, adjuvanted, preservative free Padmini Rodocoy [facility] 01-28-2018 Seasonal trivalent influenza vaccine, adjuvanted, preservative free Padmini Rodocoy [facility] 03-11-2017 influenza, injectabl e, quadrivalent, contains preservative Padmini Rodocoy [facility], [facility] 03-11-2017 pneumococcal conjuga te vaccine, 13 valent Padmini Rodocoy [facility] 11-15-2016 tetanus toxoid, adsorbed Bozena kameron Rodocoy [facility], [facility] 02-21-2016 influenza, seasonal, injectable Padmini Rodocoy [facility] 02-21-2016 pneumococcal polysaccharide vaccine, 23 valent Padmini Rodocoy [facility], [facility] Payers Date Payer Category Payer Medicare [id number] 2019 Self-pay 1950 Unknown [id number] [id number] Medicare [id number] Unknown [id number] Unknown [id number] [id number] Unknown [id number] [id number] Unknown [id number] [id number] Social History Date Type Detail Facility Tobacco Smoking Status NHIS Never Smoker [facility], [facility] Sex Assigned At Unknown [facility], [facility] Medical Equipment Procedure Code Equipment Code Equipment Original Text Equi pment Identifier Dates Procedure Implant ([id number]) Clinical Notes 08-05-2011 to 03-02-2023 Note Date & Type Note Facility [facility] 04-03-2023 Evaluation note* Encounter Date Assessment Date Assessment 08/18/2022 08/18/2022 nl DEXA 2018. nl colonoscopy 2014 [facility] 05-18-2022 Evaluation note No assessment recorded. Patient Targets Encounter Date Instructions Goals 10/02/2021 [facility] 08-14-2015 Reason for referral (narrative)* General Surgeon Referral for Screening for cancer screening colonoscopy; pt known to you Referring Physician: Zuri Carson, Internal Medicine, Encounter Date: 12/29/2014 Chiropractic And Massage Ref erral for Backache back pain Referring Physician: Zuri Carson, Internal Medicine, Encounter Date: 09/21/2015 Key Punch Operator Referral for Po stmenopausal bleeding Referring Physician: Sabiha Acosta, Internal Medicine, Encounter Date: 11/23/2018 Physical Therapist Referral for Pain in right knee Referring Physician: Sabiha Acosta, Internal Medicine, Encounter Date: 01/07/2019 Physical Therapist Referral for Neck pain Referring Physician: Padmini Zimmerman Internal Medicine, Encounter Date: 04/04/2019 Orthopedic Referral for Cerv ical disc disorder Referring Physician: Padmini Zimmerman Internal Medicine, Encounter Date: 04/12/2019 Vestibular Therapy Referral for Dizziness Referring Physician: Sabiha Acosta Internal Medicine, Encounter Date: 02/09/2020 Neurologist Referral for MRI of head abnormal Referring Physician: Sabiha Acosta Internal Medicine, Encounter Date: 02/28/2020 [facility] 08-14-2015 Reason for referral (narrative)* General Surgeon Referral for Screening for cancer screening colonoscopy; pt known to you Referring Physician: Zuri Carson Internal Medicine, Encounter Date: 12/29/2014 Chiropractic And Massage Ref erral for Backache back pain Referring Physician: Zuri Carson Internal Medicine, Encounter Date: 09/21/2015 Key Punch Operator Referral for Po stmenopausal bleeding Referring Physician: Sabiha Acosta Internal Medicine, Encounter Date: 11/23/2018 Physical Therapist Referral for Pain in right knee Referring Physician: Sabiha Acosta Internal Medicine, Encounter Date: 01/07/2019 Physical Therapist Referral for Neck pain Referring Physician: Padmini Zimmerman Internal Medicine, Encounter Date: 04/04/2019 Orthopedic Referral for Cerv ical disc disorder Referring Physician: Padmini Zimmerman Internal Medicine, Encounter Date: 04/12/2019 Vestibular Therapy Referral for Dizziness Referring Physician: Sabiha Acosta Internal Medicine, Encounter Date: 02/09/2020 Neurologist Referral for MRI of head abnormal Referring Physician: Sabiha Acosta Internal Medicine, Encounter Date: 02/28/2020 Physical Therapist Referral for Thoracic back pain Referring Physician: Padmini Zimmerman Internal Medicine, Encounter Date: 08/18/2022 [facility] 03-20-2012 Evaluation note* Encounter Date Assessment Date Assessment 09/26/2020 09/26/2020 colonoscopy done 2015--10yr f/u advised no USA, no PVD Patient Targets Encounter Date Instructions Goals 09/26/2020 [facility], [facility] Evaluation + Plan note No data available for this section [facility] Evaluation note No assessment recorded. Patient Targets Encounter Date Instructions Goals 03/04/2021 [facility] Evaluation note* Encounter Date Assessment Date Assessment 04/03/2021 04/03/2021 had mammo per GY N--will get results for chart. nl DEXA 2018 Patient Targets Encounter Date Instructions Goals 04/03/2021 [facility] Evaluation note No assessment recorded. [facility] Hisqcjv general Narrative - Reported* Condition Response GERD/Reflux Y Hypertension Y Liver Disease Y CAD Y Spinal disease Y Depression Y Hyperlipidemia Y Gynecological History Statement/Question Response Menses Monthly N Obstetrics History GPAL:G 4 P 4 0 0 3 Type Value Full Term 4 Living 3 Total 4 Asc[facility] Hisoxrl general Narrative - Reported* Condition Response CAD Y GERD/Reflux Y Hyperlipidemia Y Liver Disease Y Hypertension Y Spinal disease Y Depression Y Gynecological History Statement/Question Response Menses Monthly N Obstetrics History GPAL:G 4 P 4 0 0 3 Type Value Full Term 4 Living 3 Total 4 Ascenz Hisramq general Narrative - Reported* Condition Response GERD/Reflux Y Hypertension Y CAD Y Liver Disease Y Spinal disease Y Depression Y Hyperlipidemia Y Gynecological History Statement/Question Response Menses Monthly N Obstetrics History GPAL:G 4 P 4 0 0 3 Type Value Full Term 4 Living 3 Total 4 [facility] History general Narrative - Reported* Condition Response Hyperlipidemia Y CAD Y Depression Y GERD/Reflux Y Hypertension Y Liver Disease Y Spinal disease Y Gynecological History Statement/Question Response Menses Monthly N Obstetrics History GPAL:G 4 P 4 0 0 3 Type Value Full Term 4 Living 3 Total 4 [facility] History general Narrative - Reported* Condition Response CAD Y GERD/Reflux Y Liver Disease Y Hyperlipidemia Y Hypertension Y Depression Y Spinal disease Y Gynecological History Statement/Question Response Menses Monthly N Obstetrics History GPAL:G 4 P 4 0 0 3 Type Value Full Term 4 Living 3 Total 4 [facility] History general Narrative - Reported* Condition Response CAD Y GERD/Reflux Y Liver Disease Y Hyperlipidemia Y Hypertension Y Spinal disease Y Depression Y Gynecological History Statement/Question Response Menses Monthly N Obstetrics History GPAL:G 4 P 4 0 0 3 Type Value Full Term 4 Living 3 Total 4 [facility] Hospital Discharge instructions No data available for this section [facility] Progress note No data available for this section [facility] Summary Purpose Family History No Family History Records Found Relationship Description Onset Age of this Age Resolved Age Notes Sister Malignant tumor of breast Relationship Description Onset Age of this Age Resolved Age Notes Sister Malignant tumor of breast Advance Directives No Advanced Directives Records FoundNo Advanced Directives Records FoundNo Advanced Directives Records FoundNo Advanced Directives Records FoundNo Advanced Directives Records Found Additional Source Comments INFORMATION SOURCE (unrecogn ized section and content) DATE CREATED AUTHOR AUTHOR'S ORGANIZ ATION 08/04/2021 [facility] ([place]) DATE CREATED AUTHOR AUTHOR'S ORGANIZ ATION 09/24/2022 [facility] DATE CREATED AUTHOR AUTHOR'S ORGANIZ ATION 11/18/[address] [facility] DATE CREATED AUTHOR AUTHOR'S ORGANIZ ATION 03/11/2023 [facility] ([place]) FOR RECORDS PERTAINING TO PATIENTS WHO ARE OR HAVE BEEN ENROLLED IN A CHEMICAL DEPENDENCY/SUBSTANCEABUSE PROGRAM, SOME INFORMATION MAY BE OMITTED. This clinical summary was aggregated from multiple sources. Caution should be exercised in using it in the provision of clinical care. This summary normalizes information from multiple sources, and as a consequence, information in this document may materially change the coding, format and clinical context of patient data. In addition, data may be omitted in some cases. CLINICAL DECISIONS SHOULD BE BASED ON THE PRIMARY CLINICAL RECORDS. [facility]. provides no warranty or guarantee of the accuracy or completeness of information in this document.
[2023-06-30 12:36] LABS: Prothrombin Time (Protime)PT. 13.2 SECONDS (11.7-14.9)
[2023-06-30 12:37] LABS: Partial Thromboplast Time 26.5 Seconds (24.1-36.2)
[2023-06-30 12:42] LABS: Absolute Lymphocyte Count 2.29 X10^3/uL (0.83-4.51); Basophil# 0.04 X10^3/uL; Basophil% 0.6 % (0-1); Eosinophil# 0.21 X10^3/uL; Eosinophils% 2.9 % (0-5); Hematocrit 42.1 % (37-47); Hemoglobin 13.1 g/dL (12.0-15.0); Lymphocyte # 2.29 X10^3/ul (0.83-4.51); Lymphocyte % 31.8 % (19-41); Mean Corp Hgb Conc 31.1 g/dL (32-36); Mean Corpuscular Hgb 28.7 pg (27.0-32.0); Mean Corpuscular Volume 92.3 fL (81-99); Mean Platelet Vol. 9.4 fl (6.2-12.0); Monocyte# 0.62 X10^3/uL; Monocyte% 8.6 % (0-10); NRBC Flagged by Analyzer 0 % (0-5); Neutrophil # 4.01 X10^3/uL (2.7-7.7); Neutrophil % 55.8 % (47-70); Platelet Count 263 K/mm3 (150-450); RBC Distribution Width CV 13.5 % (11.6-14.6); RBC Distribution Width SD 46.5 fl (35.1-43.9); Red Blood Count 4.56 M/mm3 (4.2-5.4); White Blood Count 7.2 K/mm3 (4.4-11.0)
[2023-06-30 12:57] LABS: Vitamin D,25 Hydroxy 34.4 ng/mL
[2023-06-30 13:10] LABS: ALB/GLOB Ratio 0.9 RATIO (0.9-2.4); AST(SGOT) 18 U/L (15-37); Alanine Aminotransfer ALT/SGPT 14 U/L (13-56); Albumin, Serum 3.4 g/dL (3.2-5.0); Alkaline Phosphatase 91 U/L (45-117); Anion Gap 6 (5-15); BUN 17 mg/dL (7-18); BUN/Creat Ratio 20.8 RATIO (10-20); Calcium,Total 8.9 mg/dL (8.5-10.1); Chloride 109 mmol/L (98-107); Cholesterol 150 mg/dL (200); Creatinine, Serum 0.82 mg/dL (0.55-1.02); EST Glomerular Filtration Rate 72 mL/min (>60); Est Glom Filt Rate - Afr Amer 88 mL/min (>60); Globulin 3.9 g/dL (2.2-4.2); Glucose 90 mg/dL (74-106); High Density Lipoprotein 58 mg/dL; Protein, Total 7.3 g/dL (6.4-8.2); Sodium Level 142 mmol/L (136-145); Triglycerides 71 mg/dL; Very Low Density Lipoprotein 14 mg/dL (5-40)
[2023-06-30 13:48] LABS: Hemoglobin A1c 5.6 % (3.8-5.6)
== END | disposition home or self-care (01) ==
LOC: LAB 11:18
DX: Z01.818 Encounter for other preprocedural examination (principal); E78.2 Mixed hyperlipidemia; E03.9 Hypothyroidism, unspecified; M17.12 Unilateral primary osteoarthritis, left knee; E55.9 Vitamin D deficiency, unspecified; R79.9 Abnormal finding of blood chemistry, unspecified
CPT/HCPCS: 36415; 80053; 80061; 82306; 83036; 84134; 84443; 85025; 85610; 85730

== ENCOUNTER 2023-08-04 18:29 | Emergency (ER) | payer MEDICARE, SELFPAY ==
[2023-08-04 18:30] VITALS: BP 154/84; PULSE 85; RESP 20; TEMP 35.9; O2SAT 99
[2023-08-04 19:20] LABS: Bacteria 0 SEEN /hpf (None Seen); Mucous, Urine 0 SEEN /hpf (<or=2+)
[2023-08-04 19:35] LABS: Color, Urine Brown (Yellow); Glucose, Dipstick Normal (Normal); Ketone-Dipstick 15 mg/dl (Negative); Leukocyte Esterase-Dipstick 500 /ul (Negative); Nitrite-Dipstick Negative (Negative); Occult Blood-Urine 250 /ul (Negative); Protein-Dipstick 500 mg/dl (Negative); Specific Gravity, Urine 1.025 (1.002-1.030); Urine Bilirubin Dipstick Negative (Negative); Urine Clarity Cloudy (Clear); Urine Urobilinogen Normal (Normal); Urine pH 6.5 (5.0 - 8.0)
[2023-08-04 19:46] LABS: Red Blood Cells-Urine > 100 SEEN /hpf (0-5)
[2023-08-04 19:48] LABS: White Blood Cells >100 SEEN /hpf (0-5)
[2023-08-04 19:49] LABS: Squamous Epithelial Cells - UA 0-5 SEEN /hpf (5-10)
[2023-08-04 19:51] VITALS: BP 145/55; PULSE 65; RESP 16; TEMP 37; O2SAT 99
--- NOTE | 2023-08-04 19:59 | CT_ITS ---
STUDY: CT ABDOMEN AND PELVIS WITHOUT CONTRAST REASON FOR EXAM: Female, 72 years old. Kidney stone RADIATION DOSAGE (If Supplied By Facility): CTDIvol = ( 23.20 ) mGy, DLP = ( 1275.36 ) mGycm TECHNIQUE: Transaxial images were obtained from the dome of the diaphragm to the symphysis pubis without oral contrast, and without intravenous contrast. Sagittal and coronal images were reconstructed. Individualized dose optimization techniques were used for this CT. COMPARISON: None. FINDINGS: The visualized lung bases are unremarkable. There are coronary artery calcifications. Normal liver. There are surgical clips in the gallbladder fossa consistent with a prior cholecystectomy. Normal spleen. Normal pancreas. Normal bilateral adrenal glands. There is punctate calcification of the right kidney. Normal left kidney. There is a small hiatal hernia. Normal small intestine. Normal colon. There is non-visualization of the appendix. There is diffuse atherosclerotic calcification of the abdominal aorta, without a demonstrated aneurysm. Normal inferior vena cava. Normal retroperitoneum. Normal urinary bladder. There is atrophy of the uterus. There is no free fluid in the abdomen or pelvis. There is a small umbilical hernia containing fat. There are diffuse degenerative changes of the visualized lumbar spine. CT/Abdomen/Pelvis without Cont IMPRESSION: Punctate right renal calcification. No hydronephrosis. No obstruction. Small hiatal hernia. Electronically Signed: Boaz Burt MD at 21:30 EDT ,
--- NOTE | 2023-08-04 19:59 | EDS_ITS ---
HPI History of Present Illness Chief Complaint: Complaint Informant: patient Onset/Context/Timing Onset: Yesterday Narrative Narrative: Patient presents secondary to dysuria, frequency, lower abdominal pain. She had knee surgery 2 weeks ago and developed urinary symptoms yesterday. She called her PCP who called in a prescription for Keflex 3 times daily for her. She states that her family member who is an RN suggested she might want to come to the emergency room and get checked to ensure she does not have a kidney stone as well. She does have a history of kidney stones. She has had no fever or chills . [facility] Medical History Barretts esophagus Carpal tunnel syndrome Cervical disc disorder Chronic GERD Coronary arteriosclerosis in [place] artery Coronary artery disease Depressive disorder DJD (degenerative joint disease) Essential (primary) hypertension Hiatal hernia Hypothyroidism Mixed hyperlipidemia Steatosis of liver Vitamin D deficiency Home Medications albuterol sulfate 2.5 mg/0.5 mL solution for nebulization 10 mg inhalation Q4H PRN SOB 02/13/23 [History Last Taken Unknown] alprazolam 0.25 mg tablet (Xanax) 0.25 mg PO TID PRN anxiety 02/13/23 [History Last Taken Unknown] aspirin 81 mg tablet,delayed release (Adult Low Dose Aspirin) 81 mg PO DAILY 02/13/23 [History Last Taken 06/08/23] cholecalciferol (vitamin D3) 25 mcg (1,000 unit) tablet 25 mcg PO DAILY 02/13/23 [History Last Taken Unknown] escitalopram oxalate 10 mg tablet 10 mg PO DAILY 02/13/23 [History Last Taken Unknown] famotidine 40 mg tablet 40 mg PO DAILY 02/13/23 [History Last Taken 06/08/23] levothyroxine 75 mcg capsule 75 mcg PO DAILY 02/13/23 [History Last Taken 06/08/23] ramipril 2.5 mg capsule 2.5 mg PO DAILY 02/13/23 [History Last Taken 06/08/23] rosuvastatin 10 mg tablet 10 mg PO DAILY 02/13/23 [History Last Taken 06/08/23] dextromethorphan-guaifenesin 10 mg-200 mg/5 mL oral liquid (Adult Wal-Tussin DM Max) 10 ml PO Q6-8H PRN cough #118 mL 05/28/23 [Rx Last Taken Unknown] Allergy/AdvReac Type Severity Reaction Status Date / Time latex AdvReac Severe Rash Verified 08/04/23 18:31 atorvastatin [From Lipitor] AdvReac Intermediate myalgias Verified 08/04/23 18:31 Family History Sister Breast cancer Surgical History H/O heart artery stent H/O tubal ligation History of cholecystectomy History of PTCA Social History Smoking Status: Never smoker ROS ROS ED Constitutional Constitutional ED: Denies chills or fever(s) Eyes Eyes: Denies discharge from eye(s) ENT ENT ED: Denies discharge from eye(s), rhinorrhea or sore throat Cardiovascular Cardiovascular: Denies chest pain or palpitations Respiratory/Chest Respiratory/Chest: Denies cough or dyspnea Gastrointestinal Gastrointestinal: Reports abdominal pain; Denies diarrhea, nausea or vomiting Genitourinary Genitourinary ED: Reports dysuria and urinary frequency Musculoskeletal Musculoskeletal: Reports back pain and extremity pain Integumentary Denies Abrasions or rash Neurologic Neurologic: Denies headache(s) or weakness Psychiatric Psychiatric: Denies anxiety or depression Endocrine Endocrinology: Denies polydipsia or polyuria Allergic/Immunologic Allergic/Immunologic ED: Denies lip swelling or urticaria EXAM Physical Exam Const Vital Signs: 08/04/23 18:30 08/04/23 19:51 08/04/23 20:29 Temperature 96.7 F L 98.6 F Temperature Source Temporal Temporal Pulse Rate 85 65 70 Respiratory Rate 20 H 16 16 Blood Pressure 154/84 H 145/55 H 156/74 H Blood Pressure Mean 107 85 101 Pulse Ox 99 99 95 Oxygen Delivery Method Room Air Room Air Room Air Positive well nourished and well developed General Appearance ED: well developed HEENT Reports moist mucous membranes Eyes EOMs intact bilaterally Chest Wall inspection of chest normal and palpation of chest normal Resp normal respiratory effort and clear to auscultation bilaterally Cardio regular rate and regular rhythm GI non-tender Palpation: soft Extremity Extremity Narrative: Clean incision over the anterior left knee. Surrounding ecchymosis and edema noted. No sign of infection. Neuro oriented x3 MDM MDM MDM Narrative Medical decision making narrative: Urinalysis obtained per nursing protocol. Patient does have greater than 100 red cells, greater than 100 white cells, with 0 bacteria. She is already been on an antibiotic for [address] scan the flank will be obtained to evaluate for potential kidney stone as well. Lab Data Labs: Laboratory Results - last 24 hr 08/04/23 18:40 Urine Color Brown Urine Clarity Cloudy Urine pH 6.5 Ur Specific [place] 1.025 Urine Protein 500 H Urine Glucose (UA) Normal Urine Ketones 15 H Urine Occult Blood 250 H Urine Nitrite Negative Urine Bilirubin Negative Urine Urobilinogen Normal Ur Leukocyte Esterase 500 H Urine RBC > 100 SEEN Urine WBC >100 SEEN Ur Squamous Epith Cells 0-5 SEEN Urine Bacteria 0 SEEN Urine Mucus 0 SEEN Radiography Diagnostic Testing: Clinical Impression(s) from Imaging Studies Abdomen/Pelvis CT 08/04/23 19:59 IMPRESSION: Punctate right renal calcification. No hydronephrosis. No obstruction. Small hiatal hernia. Electronically Signed: Boaz Burt MD at 21:30 EDT , Treatment and Re-Evaluation :: CT scan of the flank reveals punctate right renal calcification. No evidence of hydronephrosis. No obstruction. Small hiatal hernia is noted. Urinalysis does show greater than 100 white cells and greater than 100 red cells. No bacteria is noted however. She has been on antibiotics for the past day and this may alter our urinalysis. Patient to continue her current regimen. Return instructions given. Discharge Plan Triage Chief Complaint: Complaint ED Provider: Reyna Landon Dx/Rx/DC Orders Clinical Impression: UTI (urinary tract infection) Instructions: ED Cystitis Female Adult Prescriptions: No Action albuterol sulfate 2.5 mg/0.5 mL solution for nebulization 10 mg inhalation Q4H PRN (Reason: SOB) aspirin [Adult Low Dose Aspirin] 81 mg tablet,delayed release (DR/EC) 81 mg PO DAILY escitalopram oxalate 10 mg tablet 10 mg PO DAILY famotidine 40 mg tablet 40 mg PO DAILY levothyroxine 75 mcg capsule 75 mcg PO DAILY ramipril 2.5 mg capsule 2.5 mg PO DAILY rosuvastatin 10 mg tablet 10 mg PO DAILY cholecalciferol (vitamin D3) 25 mcg (1,000 unit) tablet 25 mcg PO DAILY alprazolam [Xanax] 0.25 mg tablet 0.25 mg PO TID PRN (Reason: anxiety) Adult Wal-Tussin DM Max 10-200 mg/5 mL liquid 10 ml PO Q6-8H PRN (Reason: cough) Qty: 118 0RF Activity Restrictions/Additional Instructions: Please follow-up with your primary care physician if not improving in 3 to 5 days. Disposition Disposition: Home, Self Care
[2023-08-04 20:29] VITALS: BP 156/74; PULSE 70; RESP 16; O2SAT 95
== END 2023-08-04 21:53 | disposition home or self-care (01) ==
PROVIDERS: Emergency Provider Emergency Medicine; Visit Provider Emergency Medicine
DX: N39.0 Urinary tract infection, site not specified (principal); Z95.5 Presence of coronary angioplasty implant and graft
CPT/HCPCS: 74176; 81001; 99282

== ENCOUNTER 2023-10-06 14:00 | Outpatient (RCR) | payer MEDICARE, SELFPAY ==
--- NOTE | 2023-07-22 13:58 | HP.PTEVAL_ITS ---
Patient's Visit Information Visit Information Visit Information: ANDREA TREVINO is a 72 year old F referred to Physical Therapy by TRACEY BRADEN with a diagnosis of L TKA/Knee Pain DOS: 07/21/2023. Date of Evaluation: 07/22/23 Physical Therapist: Dimitrios Madsen DPT Visit Plan Frequency: 3x /Week Duration: 2 Months Plan: -L knee ROM, active and passive, adding mobilizations as tolerated -Quad strengthening (LAQ and quad sets....increase from there) -Hamstring, quad, and calf stretching/STM as needed -ONCE ROM and strength have progressed, work on floor transfers Pt currently using FWW, would like to transition to SPC and eventually no AD. Keep an eye on redness in LUE for any changes in swelling or tightness (HEP: seated HS stretch, supine quad set, seated LAQ, supine and seated heel slides) Subjective Subjective: Pt presents to PT s/p L TKA on 07/21/2023. Pt using a FWW with amb. today, typically uses a SPC for longer distances (ex. grocery store). Pt attempted to sleep in bed last night but had to move to recliner d/t pain, rating it an 8/10. Pt icing and using pain meds as needed, had R knee replaced 3 years ago and is familiar with phases of recovery. Pts house is all on one level, has RTS, lives with , at son and future daughter in laws house. Pt goals: wants to be able to get down on the floor and play with her grandkids, get back to golfing, and play bocce ball. Pt has one step to get into house with no railing, has supervision 08/12 and assistance as she needs. Pt reports some pain in L calf and toes, denies any numbness, tingling, or increased redness in calf. Pain Left Knee: Pain Intensity (Out of 10): 3 Pain Intensity Range: 3 and 8 Objective Objective: EDEMA: LLE - 23 3/4 mid patellar, 4 inf from tib plateau 19 MMT: supine quad set had partial motion, increased pain, 3/5 in L knee ROM: L knee - ext lacking 30 deg, flex 60 deg with increase in pain GAIT: antalgic, using heavy UE support on FWW, but evidence of L heel-toe pattern STS: heavy BUE support, favoring RLE d/t pain and swelling in LLE, avoided L knee flex with sitting down, controlling descent with BUE TU.98s with FWW PALPATION: tenderness in L calf and foot, but no redness or skin tightness that would indicate DVT OBSERVATION: redness in LUE (like a sunburn), pt wondered if from tight BP cuff during procedure, scar intact and no apparent sign of infection or excessive drainage Pt overall doing well, has swelling, pain, weakness, and difficulty walking as to be expected 1 day post op from L TKA. Pt motivated to return to recreational act and demo's good understanding of need to increase tolerance to walking. Pt educated on need to monitor redness in LUE and to continue to look for any signs of infection or DVT in LLE. Balance/Special Test Scores WOMAC Total Score: 85 WOMAC Percentatge: 11.4600 Goals Goal 1:: Pt will amb. 300+ indep with SPC Goal Time Frame: 4-6 Weeks Goal 2:: Pt will demonstrate symmetrical LE strength Goal Time Frame: 4-6 Weeks Goal 3:: Pt will complete TUG in <15s with SPC Goal Time Frame: 6-8 Weeks Goal 4:: Pt will demonstrate 0-0-120 AROM in L knee Goal Time Frame: 6-8 Weeks Goal 5:: Pt will amb. >300ft. with no AD and normalized gait pattern Goal Time Frame: 6-8 Weeks Goal 6:: Pt will be able to get on and off floor indep with <2/10 pain Goal Time Frame: 6-8 Weeks Rehabilitation Potential Physical Therapy Diagnosis: Pt presents to PT with L knee pain s/p L TKA, with deficits in ROM, strength, and tolerance to walking. Pt would benefit from skilled PT services to address pain, swelling, ROM, strength, muscular endurance, and gait mechanics to improve tolerance and independence with ADLs and recreational act. Rehabilitation Potential: Excellent Anticipated Interventions Patient/Client Instruction: Educate patient on: Condition and Plan of Care For the Purpose of:: To decrease pain, To decrease swelling/inflammation, To increase ROM, To improve muscle performance and motor function, To improve ability to perform ADL's, To increase tolerance to activity/condition/position, To improve performance and independence with ADL's, To decrease level of supervision to perform tasks, To decrease soft tissue restriction, To increase flexibility/ROM, To improve endurance, To improve balance, To improve safety with gait, To assume or resume ADL's, To improve safety, To improve health and function, To improve self management, To prevent re-injury, To improve ability to perform tasks related to life management and To improve tolerance to ADL's Therapeutic Exercise to Include: Strength training, Balance training, Flexibilty training, Gait and locomotor training, Neuromotor development, Passive ROM and Active ROM For the Purpose of:: To decrease pain, To decrease swelling/inflammation, To increase ROM, To improve muscle performance and motor function, To improve ability to perform ADL's, To increase tolerance to activity/condition/position, To improve performance and independence with ADL's, To decrease level of supervision to perform tasks, To improve gait and locomotor functions, To decrease soft tissue restriction, To increase flexibility/ROM, To improve endurance, To improve balance, To improve safety with gait, To assume or resume ADL's, To improve safety, To improve self management, To prevent re-injury, To improve ability to perform tasks related to life management and To improve tolerance to ADL's Manual Therapy Techniques to Include: Scar massage, Mobilization, Passive ROM and Soft tissue mobilization For the Purpose of:: To decrease pain, To decrease swelling/inflammation, To increase ROM, To improve health of tissue, To decrease soft tissue restriction, To increase flexibility/ROM and To improve ability to perform tasks related to life management Cryotherapy (ice pack, ice massage): Yes Text: Thank you for the opportunity to evaluate your patient. For Medicare and Medicare HMO plans, please review the plan of care and approve it. It will need to be FAXED BACK to us at [phone] for Medicare purposes. For Medicare only, by signing this I certify the plan of care. Please let me know if there are questions or concerns regarding this plan of care. Physician Signature: Date:
== END 2023-10-06 19:00 | disposition home or self-care (01) ==
LOC: PT 14:00
DX: M25.562 Pain in left knee (principal)
CPT/HCPCS: 97110; 97140; 97161; 97530

== ENCOUNTER → 2023-11-25 | Outpatient (CLI) | payer MEDICARE, SELFPAY ==
--- NOTE | 2023-11-25 11:51 | BI_ITS ---
MAMMOGRAPHY - BILATERAL SCREENING REASON FOR EXAM: Female, 72 years old. Routine annual screening examination. PERTINENT HISTORY: Sister with breast cancer. Occasional bilateral breast pain. TECHNIQUE: Digital bilateral breast ryan (3D mammographic acquisition) in the CC and MLO projections. 2-D mediolateral oblique (MLO) and craniocaudad (CC) views of both breasts were obtained. CAD: Full Field Digital Mammography with Computer Added Detection was performed. COMPARISON: Comparison is made with prior study dated September 01, 2022. FINDINGS: Breast Composition: The breasts are almost entirely fatty. There are no dominant masses or suspicious calcifications. Stable small benign-appearing bilateral axillary lymph nodes. Stable bilateral secretory calcifications. No other significant abnormalities are identified. There has been no significant change since the prior study. BI/SCRN MAMM (CAD)W/RYAN BILAT IMPRESSION: Stable bilateral screening mammogram. Yearly follow-up mammogram recommended. (A) ASSESSMENT CATEGORY: BIRADS Category 2: Benign. A letter regarding these results will be sent to the patient by the facility within 30 days. Approximately 10% of breast cancers are not detected by mammography. A normal mammogram should not delay biopsy of a clinically suspicious abnormality. [id number] Electronically Signed: Pb Pozo MD at 12:58 EDT ,
== END | disposition home or self-care (01) ==
LOC: OPBI 11:49
PROVIDERS: Referring Provider Internal Medicine; Visit Provider Internal Medicine
DX: Z12.31 Encounter for screening mammogram for malignant neoplasm of breast (principal); Z80.3 Family history of malignant neoplasm of breast
CPT/HCPCS: 77063; 77067

== ENCOUNTER → 2024-02-11 | Outpatient (CLI) | payer MEDICARE, SELFPAY ==
--- NOTE | 2024-02-11 10:18 | MRI_ITS ---
EXAM: MR HEAD WITHOUT AND WITH INTRAVENOUS CONTRAST CLINICAL INDICATION: OCCIPITAL NEURALGIA, PAIN BASE OF SKULL INTO R ARM TECHNIQUE: Multiplanar and multisequence MR images of the brain were obtained without and with intravenous contrast. CONTRAST: IV 23CC CLARISCAN COMPARISON: No relevant prior studies available. FINDINGS: BRAIN AND EXTRA-AXIAL SPACES: Increased T2 signal intensity within the cerebral white matter suggestive of chronic microvascular change. No abnormal contrast enhancement. 4 mm focus of susceptibility artifact within the posterior right temporal lobe adjacent to the trigone of the right lateral ventricle suggestive of old hemorrhage. No acute intra- or extra-axial hemorrhage. No evidence of acute infarct. No intracranial mass or mass effect. Normal preservation of the garnett/white matter interface. Posterior fossa structures are unremarkable. Ventricles are appropriate for age. No hydrocephalus. Basal cisterns are patent. SELLA: Normal. Normal sella turcica, pituitary gland, infundibular stalk, optic chiasm and hypothalamus. AUDITORY SYSTEM: Normal. The internal auditory canals are patent. BONES/JOINTS: Intact calvarium. SINUSES: Unremarkable as visualized. Clear. MASTOID AIR CELLS: Unremarkable as visualized. Clear. ORBITS: Unremarkable as visualized. Both globes, extraocular muscles, optic nerves and retrobulbar fat appear unremarkable. VASCULATURE: Unremarkable as visualized. Normal flow voids in the major intracranial circulation. MRI/Brain W/WO Contrast IMPRESSION: 1. No acute intracranial abnormality. 2. Senescent changes. Electronically Signed: Kei Silverman MD at 16:41 EDT ,
--- NOTE | 2024-02-11 10:24 | MRI_ITS ---
STUDY: MRI CERVICAL SPINE WITH AND WITHOUT CONTRAST REASON FOR EXAM: Female, 73 years old. OCCIPITAL NEURALGIA C/O PAIN INTO R ARM TECHNIQUE: Standardized fat and water weighted pulse sequences were obtained in the sagittal and axial following administration of IV 23CC CLARISCAN. COMPARISON: None FINDINGS: Normal foramen magnum and brainstem-cervical cord junction. Normal craniovertebral junction. Normal anterior atlantoaxial articulation. Normal odontoid process. There is reversal of the normal cervical lordosis. Disc desiccation is present at all levels. C2-3: Normal endplates. Normal disc height and morphology. Normal central canal and intervertebral neural foramina. C3-4: Normal endplates. Mild disc space narrowing with diffuse disc bulging as well as a broad-based midline to right paracentral disc protrusion compressing the anterior aspect of the cord and contributing to mild to moderate central canal stenosis. Severe right foraminal stenosis with nerve root compression. Moderate left foraminal stenosis with nerve root compression due to uncovertebral and significant facet joint hypertrophy. Moderate right uncovertebral hypertrophy. C4-5: Diffuse disc desiccation with mild disc space narrowing and diffuse disc bulging. Superimposed shallow left paracentral disc protrusion compresses the left anterior aspect of the cord. The diffuse disc bulge causes compression across the remaining aspect of the cord and contributes to mild to moderate central canal stenosis mild right foraminal stenosis. Moderate left foraminal stenosis with nerve root compression due to combined uncovertebral facet joint hypertrophy. C5-6: Diffuse disc desiccation with mild to moderate disc space narrowing and diffuse disc bulge with compression on anterior aspect of the cord. Superimposed broad-based left paracentral disc protrusion is also present. Mild to moderate central canal stenosis. Moderate left and severe right foraminal stenosis with nerve root compression due to uncovertebral and facet joint hypertrophy. Severe right uncovertebral hypertrophy. C6-7: Moderate disc space narrowing with a diffuse disc bulge/spur complex with mild compression anterior aspect of the cord and [id number] central canal stenosis. Moderate to severe bilateral foraminal stenosis with nerve root compression, due to uncovertebral hypertrophy. C7-T1: Normal endplates. Mild disc space narrowing and slight annular bulging. Anterolisthesis of C7 on T1 of less than 2 mm. Normal central canal and intervertebral neural foramina. Normal cervical cord. There is no demonstrated cervical cord syrinx cavity. Normal visualized soft tissue structures. No aggressive or suspicious enhancing bony or soft tissue abnormality is present. There are no lesions of the spinal cord or intrathecal sac. No nerve root lesions are present. MRI/Spine Cervical W/WO Contrast IMPRESSION: 1. Multilevel degenerative changes, as described above. Electronically Signed: Erik Saravia MD at 15:10 EDT ,
[2024-02-11 10:44] LABS: CREATININE FINGERSTICK < 1.0 mg/dL (0.55-1.02); EGFR FINGERSTICK > 60.0000 mL/min (>60)
== END | disposition home or self-care (01) ==
DX: M54.81 Occipital neuralgia (principal); Q28.2 Arteriovenous malformation of cerebral vessels
CPT/HCPCS: 70553; 72156; A9575

== ENCOUNTER → 2024-02-25 | Outpatient (CLI) | payer MEDICARE, SELFPAY ==
--- NOTE | 2024-02-25 13:21 | CT_ITS ---
STUDY: CTA HEAD AND NECK WITH CONTRAST REASON FOR EXAM: Female, 73 years old. Arteriovenous malformation of cerebral vessels RADIATION DOSAGE (If Supplied By Facility): CTDIvol = ( 27.14 ) mGy, DLP = ( 1582.96 ) mGycm TECHNIQUE: CT angiography was performed with a multi-detector CT scanner. Data acquisition was obtained from the skull base through the vertex following intravenous administration of IV 100mL Isovue-370. MIP images were reconstructed from the axial data set. Post-processing of the angiographic images was performed, with multiplanar reformation and 3D reconstruction. Individualized dose optimization techniques were used for this CT. COMPARISON: No relevant priors. FINDINGS: Normal bilateral petrous carotid arteries. There is calcified plaque formation of the right cavernous carotid artery, with a mild stenosis (less than 50%). There is calcified plaque formation of the left cavernous carotid artery, with a mild stenosis (less than 50%). Normal right A1 segments of the anterior cerebral artery. Normal left A1 segments of the anterior cerebral artery. Normal intact anterior communicating artery (ACOM). Normal bilateral A2 segments of the anterior cerebral arteries. Normal right M1 and M2 segments of the middle cerebral arteries, with a normal M1 bifurcation. Normal left M1 and M2 segments of the middle cerebral arteries, with a normal M1 bifurcation. Normal right posterior communicating artery (PCOM). Normal left posterior communicating artery (PCOM). Normal bilateral vertebral arteries. Normal basilar artery with a normal basilar bifurcation. The visualized bilateral superior cerebellar (SCA) arteries are normal. Normal bilateral P1, P2 and visualized P3 segments of the posterior cerebral arteries. There is no demonstrated aneurysm of the [place] of [place]. There is no demonstrated abnormality of the visualized brain. AORTIC ARCH: Normal visualized aortic arch. Normal origins of the brachiocephalic, left common carotid, and left subclavian arteries. RIGHT CAROTID ARTERIES: Normal right common carotid artery (CCA). There is moderate atherosclerotic plaque formation with mild narrowing of the right carotid bulb. There is moderate atherosclerotic plaque formation of the origin of the right internal carotid artery with less than 50% cross sectional diameter stenosis. There is atherosclerotic tortuous elongation of the cervical portion of the right internal carotid artery. Normal origin of the right external carotid artery (ECA). LEFT CAROTID ARTERIES: Normal left common carotid artery (CCA). There is moderate atherosclerotic plaque formation with mild narrowing of the carotid bulb. There is moderate atherosclerotic plaque formation of the origin of the left internal carotid artery with less than 50% cross sectional diameter stenosis. There is atherosclerotic tortuous elongation of the cervical portion of the left internal carotid artery. Normal origin of the left external carotid artery (ECA). VERTEBRAL ARTERIES: Normal bilateral vertebral arteries. CT/CTA Head AND Neck W/ Contrast IMPRESSION: No acute abnormalities. No large vessel occlusion. No hemodynamically significant stenoses. No aneurysms. No AVM. Electronically Signed: Christian Monterroso MD at 20:14 EDT ,
== END | disposition home or self-care (01) ==
DX: M54.81 Occipital neuralgia (principal); Q28.2 Arteriovenous malformation of cerebral vessels
CPT/HCPCS: 70496; 70498; Q9967; A4216

== ENCOUNTER → 2024-03-07 | Outpatient (CLI) | payer MEDICARE, SELFPAY ==
[2024-03-07 12:02] LABS: ALB/GLOB Ratio 0.9 RATIO (0.9-2.4); AST(SGOT) 14 U/L (15-37); Alanine Aminotransfer ALT/SGPT 15 U/L (13-56); Albumin, Serum 3.4 g/dL (3.2-5.0); Alkaline Phosphatase 85 U/L (45-117); Anion Gap 5 (5-15); BUN 18 mg/dL (7-18); BUN/Creat Ratio 22.2 RATIO (10-20); Calcium,Total 8.8 mg/dL (8.5-10.1); Chloride 108 mmol/L (98-107); Cholesterol 169 mg/dL (200); Creatinine, Serum 0.81 mg/dL (0.55-1.02); EST Glomerular Filtration Rate 73 mL/min (>60); Est Glom Filt Rate - Afr Amer 89 mL/min (>60); Globulin 3.8 g/dL (2.2-4.2); Glucose 83 mg/dL (74-106); High Density Lipoprotein 71 mg/dL; Potassium 4.2 mmol/L (3.5-5.1); Protein, Total 7.2 g/dL (6.4-8.2); Sodium Level 142 mmol/L (136-145); Triglycerides 107 mg/dL; Very Low Density Lipoprotein 21 mg/dL (5-40)
== END | disposition home or self-care (01) ==
LOC: LAB 11:07
PROVIDERS: PCP Internal Medicine; Referring Provider Internal Medicine; Visit Provider Internal Medicine
DX: E78.2 Mixed hyperlipidemia (principal); E55.9 Vitamin D deficiency, unspecified
CPT/HCPCS: 36415; 80053; 80061; 82306

== ENCOUNTER → 2024-03-14 | Outpatient (CLI) | payer MEDICARE, SELFPAY ==
--- NOTE | 2024-03-14 12:48 | CDU_ITS ---
Reason For Study: Dizziness Rt. Velocities/BP Lt. Velocities/BP Prox CCA 60.7/9.7 cm/sec. Prox CCA 73.6/9.7 cm/sec. Mid CCA 49.4/9.7 cm/sec. Mid CCA 77.8/12.7 cm/sec. Dist CCA 54.1/12.6 cm/sec. Dist CCA 51.9/11.4 cm/sec. Prox ICA 57.9/11.6 cm/sec. Prox ICA 65.4/16.3 cm/sec. Mid ICA 62.6/19.2 cm/sec. Mid ICA 70.4/22.5 cm/sec. Dist ICA 46.6/10.7 cm/sec. Dist ICA 61.8/13.9 cm/sec. Rt. ICA/CCA = 1.27. Lt. ICA/CCA = 0.90. Prox ECA 171.8/13.7 cm/sec. Prox ECA 88.8/6.5 cm/sec. Rt. Vert. 39/5 cm/sec. Lt. Vert. 47/9 cm/sec. Right Extracranial There is intimal thickening but no significant atherosclerotic plaque noted in the right common carotid artery. There is heterogeneous, irregular atherosclerotic plaque noted in the right internal carotid artery. There is heterogeneous, irregular atherosclerotic plaque noted in the right external carotid artery. Antegrade flow is noted in the right vertebral artery. Left Extracranial There is heterogeneous, irregular atherosclerotic plaque noted in the left common carotid artery. There is heterogeneous, irregular atherosclerotic plaque noted in the left internal carotid artery. There is heterogeneous, irregular atherosclerotic plaque noted in the left external carotid artery. Antegrade flow is noted in the left vertebral artery. Procedure Carotid Duplex [id number]. This is a Carotid Duplex examination using B-mode, color flow and specral Doppler. Exam performed in department. VL/Carotid Duplex Ultrasound Interpretation Summary Mild (<50%) stenosis right extracranial internal carotid. Mild (<50%) stenosis left extracranial internal carotid. Patent and antegrade vertebrals bilaterally. Ordering Physician: Ariella Conway Referring Physician: Padmini Zimmerman Performed By: Elizabeth Denton RVT
== END | disposition home or self-care (01) ==
LOC: CVS 12:48
PROVIDERS: PCP Internal Medicine; Referring Provider Nurse Practitioner Gerontology; Visit Provider Nurse Practitioner Gerontology
DX: R42 Dizziness and giddiness (principal)
CPT/HCPCS: 93880

== ENCOUNTER 2024-05-02 14:30 | Outpatient (RCR) | payer MEDICARE, SELFPAY ==
--- NOTE | 2024-03-20 16:50 | HP.PTEVAL ---
Patient's Visit Information Visit Information Visit Information: ANDREA TREVINO is a 73 year old F referred to Physical Therapy by MARIA L FERNANDEZ with a diagnosis of C67 RADICULOPATHY. Date of Evaluation: 03/20/24 Physical Therapist: Nichole Acevedo, PT, Cert MDT Visit Plan Frequency: 2x /Week Duration: 4-6 Weeks Plan: Scapular Strengthening and B Pec/UT/Levator/Scalene Stretching to help reduce stress on Cervical Spine with Daily Activities. US at 1.3 W/CM2 100% to B Neck Musculature in Sitting. STM to George Posterior Cervical Musculature. Moist Heat to Neck as needed. Instruction in Proper Posture Control, Ergonomics with ADL's and Appropriate Activity Modifications. George UE ROM/Stretching and Strengthening. HEP Instructions Subjective Subjective: Work/Leisure: RETIRED. BABYSITTING FOR 2 YEAR YEAR OLD GREAT GRAND-DAUGHTER 8 HOURS A DAY 5 DAYS A WEEK. Present symptoms: DIZZINESS. GEORGE NECK PAIN R>L. R HEAD, R ARM, R FOREARM AND R HAND. TINGLING INTO R DIGITS 3 AND 4. POPPING AND CRACKING IN NECK. Present since: CHRONIC - AT LEAST 2-3 YEARS. Pain Scale: Worst - 5/10 Least - 1/10 Currently: 3/10 Commenced as a result of: NO APPARENT REASON Symptoms at onset: R NECK/SHLD Worse: PICKING UP THE BABY/2 YEAR OLD, MOVING STUFF/LIKE FURNITURE, THROWING STUFF/LIKE PLAYING CORN HOLE. Better: LYING DOWN, [place] Disturbed sleep: YES - SOMETIMES Previous history/Previous treatment: NO NECK SURGERY. NO INJECTIONS. NO CHIROPRACTIC. NO PT. R CTR ABOUT 2 YEARS AGO. This episode: STEROID X 7 DAYS AND MELOXICAM. Dizziness: YES - STATES DR. FERNANDEZ IS AWARE OF IT AND IT IS BETTER SINCE TAKING THE STEROID. Tinnitus: YES - CHRONIC Nausea: NO Shortness of Breath: SOMETIMES - CHRONIC Difficulty Swallowing: A LITTLE - CHRONIC - A COUPLE OF YEARS. Gait: NO RECENT FALLS. DENIES USE OF AD'S. Accidents: NO Unexplained weight loss: NO Imagin02/11/24 NECK MRI [facility]: FINDINGS: Normal foramen magnum and brainstem-cervical cord junction. Normal craniovertebral junction. Normal anterior atlantoaxial articulation. Normal odontoid process. There is reversal of the normal cervical lordosis. Disc desiccation is present at all levels. C2-3: Normal endplates. Normal disc height and morphology. Normal central canal and intervertebral neural foramina. C3-4: Normal endplates. Mild disc space narrowing with diffuse disc bulging as well as a broad-based midline to right paracentral disc protrusion compressing the anterior aspect of the cord and contributing to mild to moderate central canal stenosis. Severe right foraminal stenosis with nerve root compression. Moderate left foraminal stenosis with nerve root compression due to uncovertebral and significant facet joint hypertrophy. Moderate right uncovertebral hypertrophy. C4-5: Diffuse disc desiccation with mild disc space narrowing and diffuse disc bulging. Superimposed shallow left paracentral disc protrusion compresses the left anterior aspect of the cord. The diffuse disc bulge causes compression across the remaining aspect of the cord and contributes to mild to moderate central canal stenosis mild right foraminal stenosis. Moderate left foraminal stenosis with nerve root compression due to combined uncovertebral facet joint hypertrophy. C5-6: Diffuse disc desiccation with mild to moderate disc space narrowing and diffuse disc bulge with compression on anterior aspect of the cord. Superimposed broad-based left paracentral disc protrusion is also present. Mild to moderate central canal stenosis. Moderate left and severe right foraminal stenosis with nerve root compression due to uncovertebral and facet joint hypertrophy. Severe right uncovertebral hypertrophy. C6-7: Moderate disc space narrowing with a diffuse disc bulge/spur complex with mild compression anterior aspect of the cord and amir-ec-vnrymald central canal stenosis. Moderate to severe bilateral foraminal stenosis with nerve root compression, due to uncovertebral hypertrophy. C7-T1: Normal endplates. Mild disc space narrowing and slight annular bulging. Anterolisthesis of C7 on T1 of less than 2 mm. Normal central canal and intervertebral neural foramina. Normal cervical cord. There is no demonstrated cervical cord syrinx cavity. Normal visualized soft tissue structures. No aggressive or suspicious enhancing bony or soft tissue abnormality is present. There are no lesions of the spinal cord or intrathecal sac. No nerve root lesions are present. MRI/Spine Cervical W/WO Contrast IMPRESSION: 1. Multilevel degenerative changes, as described above. Electronically Signed: Erik Saravia MD at 15:10 EDT PMH/Recent major surgery: B TKR - R - 3 YRS AGO, L 07/21/23 LOW BACK PAIN. Cervical disc disorder DJD (degenerative joint disease) Steatosis of liver Hiatal hernia Barretts esophagus Chronic GERD Coronary arteriosclerosis in [place] artery Essential (primary) hypertension Carpal tunnel syndrome Depressive disorder Mixed hyperlipidemia Vitamin D deficiency Hypothyroidism Coronary artery disease History of PTCA H/O tubal ligation History of cholecystectomy H/O heart artery stent Objective Objective: Sitting Posture/Standing Posture: FORWARD HEAD AND ROUNDED SHOULDERS. NO TORTICOLLIS. Active Correction of posture: NE. PASSIVE CORRECTION OF POSTURE IN CLINIC WITH USE OF LUMBAR SUPPORT RESULTS IN DECREASED C/O NECK PAIN. Other Observations: INDEP GAIT AND TRANSFERS. Sensory deficit: GEORGE UE LIGHT TOUCH SENSATION GROSSLY INTACT AND SYMMETRICAL. ROM deficit: R ARM ELEVATION TO 115 DEG - C/O R SHLD AND NECK PAIN. L ARM ELEVATION TO 109 DEG - C/O L SHLD PAIN. ARMS TESTED ONE AT A TIME. Motor deficit: R SHLD 3-/5, ELBOW FLEX 3+/5, ELBOW EXT 3+/5, ACCELERATOR TECHNICIAN 24 LBS. L SHLD 4-/5, ELBOW 4-/5, ACCELERATOR TECHNICIAN 32 LBS. PATIENT IS R HAND DOMINANT. Reflexes: UNABLE TO ELICIT GEORGE UE DTR'S. Dural Signs: POSITIVE R UE Cervical Mvmt Loss: Flex: NIL Pro: NIL - INCREASES R NECK PAIN - NW Ext: MIN - P DIZZINESS - NW Ret: [place] - NE RSB: [place] - P DIZZINESS - NW LSB: MOD - NE R Rot: MOD - INCREASES R NECK PAIN - NW L Rot: MOD - NE Postural strength: POOR Palpation: INCREASED MUSCLE TONE GEORGE POSTERIOR CERVICAL MUSCULATURE THROUGHOUT. TENDERNESS GEORGE CERVICAL MUSCULATURE AND R SHLD AND UPPER ARM COMPARED TO LEFT. Balance/Special Test Scores Oswestry Neck Score: 15 Goals Goal 1:: DECREASE C/O NECK AND UE SX'S BY AT LEAST 50% TO EASE ADL'S. Goal Time Frame: 4-6 Weeks Goal 2:: IMPROVE PAINFREE CERVICAL ROM TO EASE ADL'S Goal Time Frame: 4-6 Weeks Goal 3:: IMPROVE PAINFREE UE ELEVATION TO EASE ADL'S Goal Time Frame: 4-6 Weeks Goal 4:: INCREASE GEORGE UE FUNCTIONAL STRENGTH Goal Time Frame: 4-6 Weeks Goal 5:: INSTRUCT IN PROPHYLAXIS Goal Time Frame: 4-6 Weeks Rehabilitation Potential Physical Therapy Diagnosis: THIS PATIENT PRESENTS TO PT WITH CHIEF C/O R HEAD, NECK AND SHLD PAIN ALONG WITH DIZZINESS THAT HAS IMPROVED SINCE RECENT STEROID. SHE HAS NECK STIFFNESS, POSTURAL STIFFNESS AND WEAKNESS AND R UE WEAKNESS > LEFT. SHE IS LIMITED IN ADL'S AND A GOOD CANDIDATE FOR TRIAL OF PHYSICAL THERAPY. Rehabilitation Potential: Good Anticipated Interventions Patient/Client Instruction: Educate patient on: Condition, Plan of Care and Risk Factors For the Purpose of:: To improve self management Therapeutic Exercise to Include: Strength training, Body mechanics, Postural training, Flexibilty training, Neuromotor development and Scapular Strength/Stabilization For the Purpose of:: To decrease pain, To increase ROM, To improve muscle performance and motor function, To increase tolerance to activity/condition/position, To improve ability of physical actions for home/community/work/leisure, To increase flexibility/ROM and To improve self management Manual Therapy Techniques to Include: Soft tissue mobilization For the Purpose of:: To decrease pain, To improve nutrient delivery to tissue, To decrease soft tissue restriction and To increase flexibility/ROM Cryotherapy (ice pack, ice massage): Yes Thermo therapy (hot pack): Yes Ultrasound (thermal/non thermal): Yes For the Purpose of:: To decrease pain, To decrease swelling/inflammation and To improve nutrient delivery to tissue Text: Thank you for the opportunity to evaluate your patient. For Medicare and Medicare HMO plans, please review the plan of care and approve it. It will need to be FAXED BACK to us at [phone] for Medicare purposes. For Medicare only, by signing this I certify the plan of care. Please let me know if there are questions or concerns regarding this plan of care. Physician Signature: Date:
== END 2024-05-02 19:00 | disposition home or self-care (01) ==
LOC: PT 14:30
PROVIDERS: PCP Internal Medicine
DX: M50.123 Cervical disc disorder at C6-C7 level with radiculopathy (principal)
CPT/HCPCS: 97035; 97110; 97140; 97162; 97530

== ENCOUNTER → 2024-06-27 | Outpatient (CLI) | payer MEDICARE, SELFPAY ==
[2024-06-27 13:20] LABS: Absolute Lymphocyte Count 2.22 X10^3/uL (0.83-4.51); Absolute Neutrophil Count 4.3 X10^3/uL (2.0-7.7); Basophil# 0.05 X10^3/uL; Basophil% 0.7 % (0-1); Eosinophil# 0.21 X10^3/uL; Eosinophils% 2.8 % (0-5); Hematocrit 40.9 % (37-47); Lymphocyte # 2.22 X10^3/ul (0.83-4.51); Lymphocyte % 29.7 % (19-41); Mean Corp Hgb Conc 31.8 g/dL (32-36); Mean Corpuscular Hgb 29.6 pg (27.0-32.0); Mean Corpuscular Volume 93.2 fL (81-99); Mean Platelet Vol. 9.2 fl (6.2-12.0); Monocyte% 9.4 % (0-10); NRBC Flagged by Analyzer 0 % (0-5); Neutrophil # 4.26 X10^3/uL (2.7-7.7); Platelet Count 303 K/mm3 (150-450); RBC Distribution Width CV 13.4 % (11.6-14.6); Red Blood Count 4.39 M/mm3 (4.2-5.4); White Blood Count 7.5 K/mm3 (4.4-11.0)
[2024-06-27 13:45] LABS: BNP,B-Type NATRIURETIC PEPTIDE 32.8 pg/mL (0-100)
[2024-06-27 14:02] LABS: Anion Gap 6 (5-15); BUN 19 mg/dL (7-18); BUN/Creat Ratio 24.1 RATIO (10-20); Calcium,Total 9.1 mg/dL (8.5-10.1); Chloride 106 mmol/L (98-107); Creatinine, Serum 0.79 mg/dL (0.55-1.02); EST Glomerular Filtration Rate 75 mL/min (>60); Est Glom Filt Rate - Afr Amer 91 mL/min (>60); Glucose 88 mg/dL (74-106); Potassium 4.4 mmol/L (3.5-5.1); Sodium Level 139 mmol/L (136-145)
== END | disposition home or self-care (01) ==
LOC: LAB 12:18
PROVIDERS: PCP Internal Medicine; Referring Provider Nurse Practitioner Family; Visit Provider Nurse Practitioner Family
DX: R06.02 Shortness of breath (principal); R53.83 Other fatigue; R07.89 Other chest pain; E03.9 Hypothyroidism, unspecified
CPT/HCPCS: 36415; 80048; 83880; 84443; 85025

== ENCOUNTER → 2024-09-02 | Outpatient (CLI) | payer MEDICARE, SELFPAY ==
[2024-09-02 10:40] LABS: Absolute Lymphocyte Count 2.09 X10^3/uL (0.83-4.51); Absolute Neutrophil Count 4.3 X10^3/uL (2.0-7.7); Basophil# 0.02 X10^3/uL; Basophil% 0.3 % (0-1); Eosinophil# 0.17 X10^3/uL; Eosinophils% 2.4 % (0-5); Hematocrit 40.1 % (37-47); Hemoglobin 12.9 g/dL (12.0-15.0); Lymphocyte # 2.09 X10^3/ul (0.83-4.51); Lymphocyte % 28.9 % (19-41); Mean Corp Hgb Conc 32.2 g/dL (32-36); Mean Corpuscular Hgb 29.8 pg (27.0-32.0); Mean Corpuscular Volume 92.6 fL (81-99); Mean Platelet Vol. 9.1 fl (6.2-12.0); Monocyte# 0.65 X10^3/uL; NRBC Flagged by Analyzer 0 % (0-5); Neutrophil # 4.27 X10^3/uL (2.7-7.7); Neutrophil % 59.1 % (47-70); Platelet Count 264 K/mm3 (150-450); RBC Distribution Width CV 12.7 % (11.6-14.6); RBC Distribution Width SD 43.4 fl (35.1-43.9); Red Blood Count 4.33 M/mm3 (4.2-5.4); White Blood Count 7.2 K/mm3 (4.4-11.0)
[2024-09-02 11:49] LABS: ALB/GLOB Ratio 1.3 RATIO (0.9-2.4); AST(SGOT) 19 U/L (<=31); Alanine Aminotransfer ALT/SGPT 10 U/L (<=34); Alkaline Phosphatase 87 U/L (35-104); Anion Gap 10 (5-15); BUN 16 mg/dL (4-19); BUN/Creat Ratio 20.1 RATIO (10-20); Carbon Dioxide 23.9 mmol/L (21.0-32.0); Chloride 105 mmol/L (98-108); Cholesterol 145 mg/dL (<=200); EST Glomerular Filtration Rate 77 (>60); Globulin 3.1 g/dL (2.2-4.2); Glucose 94 mg/dL (70-99); High Density Lipoprotein 61 mg/dL; Low Density Lipoprotein Calc. 74 mg/dL; Potassium 4.2 mmol/L (3.3-5.1); Protein, Total 7.1 g/dL (5.9-8.4); Sodium Level 139 mmol/L (133-145); Total Bilirubin 0.29 mg/dL (0.00-1.30); Triglycerides 54 mg/dL; Very Low Density Lipoprotein 11 mg/dL (5-40)
[2024-09-02 11:50] LABS: Vitamin D,25 Hydroxy 29.8 ng/mL (30-100)
== END | disposition home or self-care (01) ==
LOC: LAB 09:58
PROVIDERS: PCP Internal Medicine; Referring Provider Internal Medicine; Visit Provider Internal Medicine
DX: E78.2 Mixed hyperlipidemia (principal); E55.9 Vitamin D deficiency, unspecified; I25.10 Atherosclerotic heart disease of native coronary artery without angina pectoris
CPT/HCPCS: 36415; 80053; 80061; 82306; 84443; 85025

== ENCOUNTER 2024-10-22 10:41 | Emergency (ER) | payer MEDICARE, SELFPAY ==
[2024-10-22 10:43] VITALS: BP 171/75; PULSE 61; RESP 20; TEMP 36.4; O2SAT 98
[2024-10-22 10:45] VITALS: BMI 49.1
--- NOTE | 2024-10-22 10:57 | CT_ITS ---
PROCEDURE: BRAIN/HEAD WITHOUT CONTRAST 10/22/2024 REASON FOR EXAM: TRAUMA TECHNIQUE: Head CT without intravenous contrast. Coronal and Sagittal reconstruction series were provided. One or more dose reduction techniques were used (e.g., Automated exposure control, adjustment of the mA and/or kV according to patient size, use of iterative reconstruction technique. COMPARISON: CT brain 02/25/2024 FINDINGS: No acute intracranial hemorrhage, mass, mass effect, midline shift or pathologic extra-axial fluid collection. Mild parenchymal atrophy with commensurate increase in CSF containing spaces. Patchy white matter hypodensities, patient demographics favor chronic microvascular ischemic changes. Paranasal sinuses and mastoid air cells are clear. The calvarium is grossly intact. CT/Brain/Head without Contrast IMPRESSION: No acute intracranial abnormality. Mild chronic microvascular ischemic and involutional changes. Reading Location: [facility]
--- NOTE | 2024-10-22 10:57 | CT_ITS ---
PROCEDURE: SPINE CERVICAL WITHOUT CONTRAS 10/22/2024 REASON FOR EXAM: TRAUMA TECHNIQUE: Cervical spine CT without contrast. Coronal and Sagittal reconstruction series were provided. One or more dose reduction techniques were used (e.g., Automated exposure control, adjustment of the mA and/or kV according to patient size, use of iterative reconstruction technique RADIATION DOSE SUMMARY: CTDlvol: 44.99+ 30.74+ 29.3 mGy DLP: 2006.25 mGycm FINDINGS: Alignment: Mild kyphosis. No traumatic malalignment. Vertebrae: Vertebral body heights intact. Multi level degenerative disc disease and endplate spondylosis. Soft Tissues: No prevertebral soft tissue swelling Other: Calcific arterial atherosclerosis, neck arteries CT/Spine Cervical without Contras IMPRESSION: No acute fracture identified. Reading [facility]
--- NOTE | 2024-10-22 10:58 | CT_ITS ---
PROCEDURE: SINUS/FACIAL BONE REASON FOR EXAM: FALL TECHNIQUE: CT of the paranasal sinuses without contrast. Coronal and Sagittal reconstruction series were provided. One or more dose reduction techniques were used (e.g., Automated exposure control, adjustment of the mA and/or kV according to patient size, use of iterative reconstruction technique). COMPARISON: None FINDINGS: No acute facial bone fracture or dislocation. Orbital montoya are unremarkable. Orbital contents are within normal limits. No significant soft tissue swelling or laceration. Bilateral lens replacements. Mild paranasal sinus mucosal thickening. No air-fluid levels or mucoperiosteal reaction. Moderate left nasal septal deviation with a large spur. Retropharyngeal course of the densely calcified common carotid arteries. CT/Sinus/Facial Bone IMPRESSION: No acute facial bone fracture or soft tissue swelling. Reading Location: [facility]
--- NOTE | 2024-10-22 10:58 | EDS_ITS ---
HPI History of Present Illness Chief Complaint: Fall Narrative Narrative: Patient is a 73-year-old female with past medical to hypertension, CAD, degenerative disc disease, hyperlipidemia, hypothyroidism who presents to the emergency department with a chief complaint of tripping over a table and falling hitting her head. Patient states that she is not on any blood thinning medications and did not pass out. Patient states that she tripped over a corner of a picnic table on the leg causing her to fall forward hitting her head. She is also complaining of left shoulder and elbow pain. Patient states that she has chronic back pain and this is unchanged this is not worse than her baseline. [facility] Medical History Cervical disc disorder DJD (degenerative joint disease) Steatosis of liver Hiatal hernia Barretts esophagus Chronic GERD Coronary arteriosclerosis in elim ira artery Essential (primary) hypertension Carpal tunnel syndrome Depressive disorder Mixed hyperlipidemia Vitamin D deficiency Hypothyroidism Coronary artery disease Home Medications ?Medication ?Instructions ?Recorded ?Last Taken ?Type alprazolam 0.25 mg tablet (Xanax) 0.25 mg PO TID PRN a nxiety 02/13/23 Unknown History aspirin 81 mg tablet,delayed 81 mg PO DAILY 02/13/23 0 06/08/23 History release (Adult Low Dose Aspirin) escitalopram oxalate 10 mg tablet 10 mg PO DAILY 02/13 Unknown History famotidine 40 mg tablet 40 mg PO DAILY 02/13/2305/19 History levothyroxine 75 mcg capsule 75 mcg PO DAILY 02/13/23 06/08/23 History ramipril 2.5 mg capsule 2.5 mg PO DAILY 02/13/23 History rosuvastatin 10 mg tablet 10 mg PO DAILY 02/13/2305/19 History Allergy/AdvReac Type Severity Reaction Status Date / Time latex AdvReac Severe Rash Verified 10/22/24 10:46 atorvastatin (From Lipitor) AdvReac Intermediate myalgias Verified 10/22/24 10 :46 Family History Sister Breast cancer Surgical History History of PTCA H/O tubal ligation History of cholecystectomy H/O heart artery stent Social History Smoking Status: Never smoker ROS ROS ED ROS Narrative Constitutional: Denies headache, lightness, dizziness Eyes: Denies change in vision double vision blurry vision Cardiovascular: Denies chest pain Respiratory: Denies shortness of breath Abdomen: Complains of nausea denies abdominal pain vomiting or diarrhea Neurological: Denies numbness, weakness, tingling Musculoskeletal: Complains of left shoulder and elbow pain as noted above Skin: Complains of a abrasion to the left side of her forehead EXAM Physical Exam Narrative Exam Narrative: General: Patient lying in bed rest comfortably did not appear to be in acute distress Head: Patient has superficial abrasion noted over the left eyebrow no active bleeding no laceration, normocephalic Eyes: PERRL bilaterally, EOMI bilateral, no conjunctival injection noted, no Liriano sign no raccoon eyes Neck: Soft, supple, trachea midline Cardiovascular: Regular in rhythm Respiratory: Clear to auscultation bilaterally Abdomen: Soft, nondistended, no tenderness to palpation Musculoskeletal: Patient has pain with attempted range of motion of her left shoulder she has mild tenderness palpation over the left elbow although bony prominence palpated joints taken through full range of motion no pain elicited Extremities: Radial pulses +2/4 in the bilateral extremities, +5/5 strength noted in the bilateral upper and lower extremities. Patient able to give the okay sign thumbs up and oppose her thumb to her pinky is bilaterally without difficulty she is able to abduct adduct her fingers bilaterally without any difficulty Neurological: Patient following commands knew that she was at [facility] the year is 2024. Patient has sensation grossly intact in the median ulnar, radial and axillary nerve distributions bilaterally Skin: Warm, dry, patient has superficial abrasion noted over the index finger on the left hand no active bleeding noted Const Vital Signs: 10/22/24 10:43 10/22/24 10:54 10/22/24 12:30 Temperature 97.5 F L Temperature Source Temporal Pulse Rate 61 67 Respiratory Rate 20 H 16 Respiratory Effort Normal Non-Labored Blood Pressure 171/75 H 145/56 H Blood Pressure Mean 107 85 Pulse Ox 98 98 Oxygen Delivery Method Room Air Room Air Room Air MDM MDM MDM Narrative Medical decision making narrative: Patient is a 73-year-old female who presents to the emergency department the chief complaint of fall with tripping over corner of a picnic table. On the differential diagnose includes but not limited to intracranial hemorrhage, cervical spine fracture, shoulder dislocation, proximal humerus fracture, distal humerus fracture, radial head fracture or dislocation. Once workup is obtained reviewed she will be reevaluated. Patient CBC was reviewed showed no evidence leukocytosis white blood count was normal at 9.9, hemoglobin stable at 13.2, platelet count normal at 210. Patient's sodium was normal 137, calcium normal 4.1, creatinine normal at 0.76. Patient's CT head and brain without contrast showed no acute intracranial normality there is mild chronic microvascular ischemia and involutional changes noted. Patient CT cervical spine showed no fracture or listhesis. Patient CT facial bones reviewed showed no acute fracture of the facial bone there was soft tissue swelling. Patient chest x-ray reviewed by myself by radiology showed no acute cardiopulmonary processes. Patient's x-ray of the elbow was reviewed by myself by radiology which showed complex left elbow fracture. 2 distal humeral fractures associated with the entire injury including 1 of these fractures extending to the elbow joint. Patient's x-ray of the humerus reviewed which s howed the complex distal humerus fracture. Patient's shoulder x-ray reviewed by me myself and by radiology which showed left shoulder postoperative changes with intact hardware no other acute findings noted. Patient's EKG reviewed by myself and by radiology showed a rate of 59 bpm the computer reads this is atrial fibrillation however there are P waves prior to the QRS so they believe this is sinus. Discussed case with on-call orthopedic surgeon Dr. Scherer who is recommending transfer. Patient states that she has had carpal tunnel surgery by Dr. Rosa as well as seen him in the office therefore will transfer to [facility] as a trauma. Discussed case with Dr. Dominguez who accept patient for transfer as well. Patient was placed in a long posterior arm splint she remains neurovascular intact afterwards see procedure note for separate details. Patient was advised that she would be transferred there she is agreeable this plan as well as significant other bedside all question concerns answered. Procedure note Patient had Webril applied to the left upper extremity. Plaster was then applied and a long posterior arm splint followed by web roll and Pipo wrap. Patient remained neurovascularly intact afterwards. Lab Data Labs: Laboratory Results - last 24 hr 10/22/24 12:10 WBC 9.9 RBC 4.44 Hgb 13.2 Hct 40.6 MCV 91.4 MCH 29.7 MCHC 32.5 RDW Std Deviation 44.3 H RDW Coeff of Sunny 13.2 Plt Count 210 MPV 8.9 Immature Gran % (Auto) 0.300 Neut % (Auto) 79.1 H Lymph % (Auto) 12.3 L [place] % (Auto) 7.4 Eos % (Auto) 0.7 Baso % (Auto) 0.2 Absolute Neuts (auto) 7.8 H Absolute Lymphs (auto) 1.22 Nucleated RBC % 0 Sodium 137 Potassium 4.1 Chloride 102 Carbon Dioxide 25.7 Anion Gap 10 BUN 16 Creatinine 0.76 Estim Creat Clear Calc 75.26 Est GFR (MDRD) Non-Af 81 BUN/Creatinine Ratio 20.6 H Glucose 115 H Calcium 8.9 Radiography Diagnostic Testing: Clinical Impression(s) from Imaging Studies Brain CT 10/22/24 10:57 IMPRESSION: No acute intracranial abnormality. Mild chronic microvascular ischemic and involutional changes. Reading Location: [facility] Cervical Spine CT 10/22/24 10:57 IMPRESSION: No acute fracture identified. Reading Location[facility] Facial/Sinus 10/22/24 10:58 IMPRESSION: No acute facial bone fracture or soft tissue swelling. Reading Location: [facility] Chest X-Ray 10/22/24 11:20 IMPRESSION: No Acute Findings. Reading Location: [facility] Elbow X-Ray 10/22/24 11:20 IMPRESSION: Complex left elbow fracture. 2 distal humeral fractures associated with the entire injury including 1 of these fractures extending to the elbow joint. Reading Location[facility] Humerus X-Ray 10/22/24 11:20 IMPRESSION: Complex distal humerus fracture Reading Location: [facility] Shoulder X-Ray 10/22/24 11:20 IMPRESSION: Left shoulder postoperative changes with intact hardware. No acute findings. Reading Location: [facility] Discharge Plan Triage Chief Complaint: Fall ED Provider: Dallas Nichols Dx/Rx/DC Orders Clinical Impression: Closed fracture of distal end of left humerus, Fall Prescriptions: No Action aspirin [Adult Low Dose Aspirin] 81 mg tablet,delayed release (DR/EC) 81 mg PO DAILY escitalopram oxalate 10 mg tablet 10 mg PO DAILY famotidine 40 mg tablet 40 mg PO DAILY levothyroxine 75 mcg capsule 75 mcg PO DAILY ramipril 2.5 mg capsule 2.5 mg PO DAILY rosuvastatin 10 mg tablet 10 mg PO DAILY alprazolam [Xanax] 0.25 mg tablet 0.25 mg PO TID PRN (Reason: anxiety) Primary Care Provider: Padmini Zimmerman Referrals: Padmini Zimmerman MD [Primary Care Provider] - Print Language: Bengali
[2024-10-22] MEDS: Ondansetron ODT 4 MG Tablet PO (11:05)
[2024-10-22] MEDS: HYDROcodone Bitartrate/Apap 5/325 Tablet PO (11:06)
--- NOTE | 2024-10-22 11:20 | RAD_ITS ---
PROCEDURE: CHEST 1 VIEW 10/22/2024 REASON FOR EXAM: FALL, PAIN TECHNIQUE: Frontal view of the chest. COMPARISON: 05/13/2023 FINDINGS: Hardware: Left shoulder arthroplasty. Heart: Heart size is mildly enlarged. Lungs: Bibasilar atelectasis. No focal consolidation. No pneumothorax. No pleural effusion. Bones: No acute osseous abnormality. Degenerative changes of the thoracic spine. Other: No focal soft tissue abnormality. RAD/Chest 1 View IMPRESSION: No Acute Findings. Reading Location: [facility]
--- NOTE | 2024-10-22 11:20 | RAD_ITS ---
PROCEDURE: ELBOW MIN 3 VIEWS 10/22/2024 REASON FOR EXAM: FALL Initial encounter. TECHNIQUE: 3 views of the left elbow COMPARISON: Humerus radiographs same day FINDINGS: Bones: Oblique fracture and butterfly fragment are seen at the junction of the proximal 2/3 and distal 3rd of the humerus. Oblique fracture extends through the base of the distal metaphysis of the humerus with intra-articular extension to the ulnar humeral joint. Joints: Intra-articular extension of distal humerus metaphyseal fracture Other: No soft tissue foreign body identified. RAD/Elbow min 3 Views IMPRESSION: Complex left elbow fracture. 2 distal humeral fractures associated with the e ntire injury including 1 of these fractures extending to the elbow joint. Reading Location: [facility]
--- NOTE | 2024-10-22 11:20 | RAD_ITS ---
PROCEDURE: HUMERUS MIN 2 VIEWS 10/22/2024 REASON FOR EXAM: FALL Initial encounter. TECHNIQUE: 2 view(s) of the left humerus. COMPARISON: Radiographs elbow today. FINDINGS: Bones: Oblique fracture in the distal 3rd at approximately the junction with the proximal 2/3 butterfly fragment is associated with this fracture. In the distal humeral metaphysis another oblique/vertical fracture extends through the medial (ulnar) side into the medial capitellum Joints: Joint involvement as above. Normal left shoulder arthroplasty with intact implant, well-positioned and without obvious complication Soft tissues: Unremarkable Other: No foreign body RAD/Humerus min 2 Views IMPRESSION: Complex distal humerus fracture Reading Location: [facility]
--- NOTE | 2024-10-22 11:20 | RAD_ITS ---
PROCEDURE: SHOULDER MIN 2 VIEWS 10/22/2024 REASON FOR EXAM: FALL, PAIN TECHNIQUE: Three views of the left shoulder COMPARISON: None FINDINGS: Status post left shoulder arthroplasty, with intact hardware. No acute fracture or dislocation. Moderate-severe degenerative changes of the acromial clavicular joint. No focal soft tissue abnormality. RAD/Shoulder min 2 Views IMPRESSION: Left shoulder postoperative changes with intact hardware. No acute findings. Reading Location: [facility]
[2024-10-22] MEDS: Diphth,Pertuss(Acell),Tet Vac 0.5 ML Vial IM (11:40)
--- NOTE | 2024-10-22 12:00 | EKG12_ITS ---
Test Reason : Blood Pressure : */* mmHG Vent. Rate : 59 BPM Atrial Rate : * BPM P-R Int : * ms QRS Dur : 92 ms QT Int : 406 ms P-R-T Axes : * 1 17 degrees QTcB Int : 401 ms Sinus bradycardia Abnormal ECG Confirmed by OSEAS HANNON, [place] ([id number]), city editor DADA DIGGS ([id number] on 10/24/2024 6:12:53 AM Referred By: Dallas Nichols Confirmed By: [place] FAROOQ MD
[2024-10-22 12:23] LABS: Absolute Lymphocyte Count 1.22 X10^3/uL (0.83-4.51); Absolute Neutrophil Count 7.8 X10^3/uL (2.0-7.7); Basophil# 0.02 X10^3/uL; Basophil% 0.2 % (0-1); Eosinophil# 0.07 X10^3/uL; Eosinophils% 0.7 % (0-5); Hematocrit 40.6 % (37-47); Hemoglobin 13.2 g/dL (12.0-15.0); Lymphocyte # 1.22 X10^3/ul (0.83-4.51); Lymphocyte % 12.3 % (19-41); Mean Corp Hgb Conc 32.5 g/dL (32-36); Mean Corpuscular Hgb 29.7 pg (27.0-32.0); Mean Corpuscular Volume 91.4 fL (81-99); Mean Platelet Vol. 8.9 fl (6.2-12.0); Monocyte# 0.73 X10^3/uL; Monocyte% 7.4 % (0-10); NRBC Flagged by Analyzer 0 % (0-5); Neutrophil # 7.81 X10^3/uL (2.7-7.7); Neutrophil % 79.1 % (47-70); Platelet Count 210 K/mm3 (150-450); RBC Distribution Width CV 13.2 % (11.6-14.6); RBC Distribution Width SD 44.3 fl (35.1-43.9); Red Blood Count 4.44 M/mm3 (4.2-5.4); White Blood Count 9.9 K/mm3 (4.4-11.0)
[2024-10-22] MEDS: HYDROmorphone 1 MG/ML Syringe IV (12:29)
[2024-10-22 12:30] VITALS: BP 145/56; PULSE 67; RESP 16; O2SAT 98
[2024-10-22 12:40] LABS: Anion Gap 10 (5-15); BUN 16 mg/dL (4-19); BUN/Creat Ratio 20.6 RATIO (10-20); Calcium,Total 8.9 mg/dL (7.6-11.0); Carbon Dioxide 25.7 mmol/L (21.0-32.0); Chloride 102 mmol/L (98-108); Creatinine, Serum 0.76 mg/dL (0.70-1.20); EST Glomerular Filtration Rate 81 (>60); Estimated Creatinine Clearance 75.26 ml/min (50-250); Glucose 115 mg/dL (70-99); Potassium 4.1 mmol/L (3.3-5.1); Sodium Level 137 mmol/L (133-145)
--- OUTSIDE RECORDS SUMMARY | 2024-10-22 12:42 | XMS RPT_ITS | CCD ---
Author Organization [facility] Care Team Providers Care Landscape Gardener Name Role Phone Vonnie Mcdaniels Attending Unavailable RODOCOY, PADMINI Unavailable Unavailable RODOCOY, PADMINI Unavailable Unavailable MKPARU, MCKINLEY Unavailable RAMANDEEP SANTI Unavailable RODOCOY, PADMINI Unavailable Unavailable RODOCOY, PADMINI Unavailable Unavailable MKPARU, MCKINLEY Unavailable RAMANDEEP SANTI Unavailable RODOCOY, PADMINI Unavailable Unavailable RODOCOY, PADMINI Unavailable Unavailable MKPARU, MCKINLEY Unavailable RAMANDEEP SANTI Unavailable RODOCOY, PADMINI Unavailable Unavailable RODOCOY, PADMINI Unavailable Unavailable MKPARU, MCKINLEY Unavailable RAMANDEEP SANTI Unavailable RODOCOY, PADMINI Unavailable Unavailable RODOCOY, PADMINI Unavailable Unavailable MKPARU, MCKINLEY Unavailable RODOCOY, PADMINI Unavailable Unavailable RODOCOY, PADMINI Unavailable Unavailable MKPARU, MCKINLEY Unavailable RODOCOY, PADMINI Unavailable Unavailable RODOCOY, PADMINI Unavailable Unavailable MKPARU, MCKINLEY Unavailable RODOCOY, PADMINI Unavailable Unavailable RODOCOY, PADMINI Unavailable Unavailable MKPARU, MCKINLEY Unavailable Rodocoy, Padmini A Primary Care Unavailable Marquis Ramirez Attending Unavailable Rodocoy, Padmini A Attending Unavailable Rodocoy, Padmini A Primary Care Unavailable Rodocoy, Padmini A Attending Unavailable Rodocoy, Padmini A Primary Care Unavailable RODOCOY, PADMINI Unavailable Unavailable RODOCOY, PADMINI Unavailable Unavailable MKPARU, MCKINLEY Unavailable RODOCOY, PADMINI Unavailable Unavailable RODOCOY, PAMDINI Unavailable Unavailable MKPARU, MCKINLEY Unavailable Dr. Keith Roman Attending Provider RODOCOY, PADMINI Primary Care Provider Unavailabl e RODOCOY, PADMINI Referring Provider Unavailable Dr. Keith Roman Referring Provider Dr. Keith Roman Other Provider RODOCOY, PADMINI Primary Care Provider Roof BILLIARD PARLOR MANAGER, BILLIARD PARLOR MANAGER-C Teja Christian Attending Provider RODOCOY, PADMINI Primary Care Provider Roof BILLIARD PARLOR MANAGER, BILLIARD PARLOR MANAGER-C Teja Christian Other Provider ASH Dodge Attending Provider RODOCOY, PADMINI Unavailable Unavailable RODOCOY, PADMINI Unavailable Unavailable JESSIE, KEITH Unavailable Dr. Keith Roman Attending Provider Dr. Keith Roman Attending Provider [phone] Keith Roman Referring Provider [phone] Keith Roman Other Provider RODOCOY, PADMINI Primary Care Provider Roof BILLIARD PARLOR MANAGER, BILLIARD PARLOR MANAGER-C Teja Christian Attending Provider RODOCOY, PADMINI Primary Care Provider Roof BILLIARD PARLOR MANAGER, BILLIARD PARLOR MANAGER-C Teja H Other Provider ASH Dodge Attending Provider ANIRUDH DPM, DR RUSSELL Attending Unavailabl e ANIRUDH VELIZ, DR RUSSELL Attending Unavailabl e RODOCOY, PADMINI Unavailable Unavailable RODOCOY, PADMINI Unavailable Unavailable JESSIE, KEITH Unavailable RODOCOY, PADMINI Unavailable Unavailable RODOCOY, PADMINI Unavailable Unavailable JESSIE, KEITH Unavailable RODOCOY, PADMINI Unavailable Unavailable RODOCOY, PADMINI Unavailable Unavailable JESSIE, KEITH Unavailable RODOCOY, PADMINI Unavailable Unavailable RODOCOY, PADMINI Unavailable Unavailable JESSIE, KEITH Unavailable Erasmo HANNON, Dr. Padmini Nowak Primary Care Provider [facility] BILLIARD PARLOR MANAGER-C, Teja Attending Provider [phone] [facility] BILLIARD PARLOR MANAGER-C, [facility] Referring Provider [phone] Dr. Padmini Leong MD Referring Provider [phone] Shantal Philippe Attending Provider [phone] Erasmo HANNON, Dr. Padmini Nowak Attending Provider Rodocoy, Padmini A Primary Care Unavailable WEISSFELD, BRITTNI Referring Unavailable WEISSFELD, BRITTNI Attending Unavailable Rodocoy, Padmini A Primary Care Unavailable [facility], Teja Attending Unavailable [facility], Teja Referring Unavailable Rodocoy, Padmini A Attending Unavailable Rodocoy, Padmini A Referring Unavailable Rodocoy, Padmini A Primary Care Unavailable WEISSFELD, BRITTNI Attending Unavailable WEISSFELD, BRITTNI Referring Unavailable WEISSFELD, BRITTNI Primary Care Unavailable Rodocoy, Padmini A Attending Unavailable Rodocoy, Padmini A Referring Unavailable WEISSFELD, BRITTNI Primary Care Unavailable Man WESTFALL, Ariella Attending Unavailable WEISSFELD, BRITTNI Referring Unavailable WEISSFELD, BRITTNI Primary Care Unavailable Man WESTFALL, Ariella Referring Unavailable Rodocoy, Padmini A Primary Care Unavailable Migue Crocker Attending Unavailable Rodocoy, Padmini A Primary Care Unavailable Man WESTFALL, Ariella Attending Unavailable Shantal Philippe Attending Unavail able Rodocoy, Padmini A Referring Unavailable Rodocoy, Padmini A Primary Care Unavailable WEISSFELD, BRITTNI Attending Unavailable WEISSFELD, BRITTNI Referring Unavailable WEISSFELD, BRITTNI Primary Care Unavailable WEISSFELD, BRITTNI Referring Unavailable WEISSFELD, BRITTNI Primary Care Unavailable WEISSFELD, BRITTNI Attending Unavailable Man BILLIARD PARLOR MANAGER, Ariella Attending Unavailable Man WESTFALL, Ariella Referring Unavailable Rodocoy, Padmini A Primary Care Unavailable Rodocoy, Padmini A Attending Unavailable Rodocoy, Padmini A Referring Unavailable Rodocoy, Padmini A Primary Care Unavailable RODOCOY, PADMINI Unavailable Unavailable RODOCOY, PADMINI Unavailable Unavailable JESSIE, KEITH Unavailable Allergies Allergy Classification Reported Allergen(s) Allergy Type Date of Onset Reaction(s) Facility (1 source) Adhesive Tape Drug allergy (disorder) 8 [facility] ([place]) Repository (16 sources) Aspirin; Translations: [ASPIRIN] Drug Allergy nausea [facility] (16 sources) atorvastatin; Translations: [LIPITOR] Drug Allergy myalgias (muscle pain) [facility] (7 sources) atorvastatin Drug Allergy 3 myalgias [facility] (7 sources) Latex Propensity to adverse reactions 3 Rash [facility] (1 source) atorvastatin Drug Allergy 4 [facility] Repository (1 source) Latex Drug allergy (disorder) 4 [facility] Repository Medications Current Medications Medication Drug Class(es) Dates Sig (Normalized) Sig (Original) albuterol 0.83 mg/ml inhalation solution (20 sources) beta2-Adrenergic Agonist Start: 05-24-2024 take 3 mL by inhalation every four to six hours as needed albuterol sulfate 2.5 mg/3 mL (0.083 %) solution for nebulization Inhale 3 mL every 4-6 hours by nebulization route as needed. 05/24/2024 active Not Available Not Available Not Available Start: 02-13-2023 End: 06-28-2024 take 10 mg by inhalation every four hours as needed Albuterol Sulfate 2.5 mg/0.5 mL solution for nebulization Discontinued 10 mg INHALATION Q4H as needed for SOB February 13, 2023 12:00am June 28, 2024 11:44am Start: 09-19-2022 End: 07-10-2023 take 3 mL by inhalation every four to six hours as needed albuterol sulfate 2.5 mg/3 mL (0.083 %) solution for nebulization Inhale 3 mL every 4-6 hours by nebulization route as needed. 09/19/2022 07/10/2023 completed Not Available Not Available Not Available Start: 04-05-2018 End: 11-30-2018 take 2 puff(s) by inhalation every four hours as needed ProAir HFA 90 mcg/actuation aerosol inhaler Inhale 2 puffs every 4 hours by inhalation route as needed. 04/05/2018 11/30/2018 completed Not Available Not Available Not Available ALPRAZolam 0.25 mg oral tablet (20 sources) Benzodiazepine Start: 01-28-2023 take 1 tablet by mouth three times daily as needed Xanax 0.25 mg tablet Take 1 tablet 3 times a day by oral route as needed. 08/15/2024 active Not Available Not Available Not Available Start: 08-18-2022 take 1 tablet by victoriano th three times daily as needed Xanax 0.25 mg tablet Take 1 tablet 3 times a day by oral route as needed. 08/18/2022 active Start: 08-09-2021 take 1 tablet by victoriano th three times daily as needed Xanax 0.25 mg tablet Take 1 tablet 3 times a day by oral route as needed. 08/09/2021 active Start: 04-03-2021 take 1 tablet by victoriano th three times daily as needed Xanax 0.25 mg tablet Take 1 tablet 3 times a day by oral route as needed. 04/03/2021 active Start: 01-02-2021 take 1 tablet by victoriano th three times daily as needed Xanax 0.25 mg tablet Take 1 tablet 3 times a day by oral route as needed. 01/02/2021 active Start: 07-11-2020 take 1 tablet by victoriano th three times daily as needed Xanax 0.25 mg tablet Take 1 tablet 3 times a day by oral route as needed. 07/11/2020 active Aspir-81 (16 sources) Aspir-81 1 QD ac tive Not Available Not Available Not Available Aspir-81 1 QD ac tive aspirin 81 mg delayed release oral tablet (20 sources) Platelet Aggregation Inhibitor, Nonsteroidal Anti-inflammatory Drug Start: 02-13-2023 Aspirin (Adult Lo w Dose Aspirin) 81 mg tablet,delayed release (DR/EC) Active 81 mg PO DAILY February 13, 2023 12:00am End: 11-15-2021 take 1 capsule by mouth twice daily aspirin 325 mg capsule Take 1 capsule twice a day by oral route. 11/15/2021 completed Not Available Not Available Not Available atorvastatin 20 mg oral tablet (20 sources) HMG-CoA Reductase Inhibitor take 1 tablet by mouth once daily Lipitor 20 mg tablet Take 1 tablet every day by oral route. active mkparu Not Available Not Available Not Available take 1 tablet by mouth once kinga y Lipitor 10 mg tablet Take 1 tablet every day by oral route. active Not Available Not Available Not Available clopidogrel 75 mg oral tablet (16 sources) P2Y12 Platelet Inhibitor take 1 tablet by mouth once daily Plavix 75 mg tablet Take 1 tablet every day by oral route. active Not Available Not Available Not Available codeine phosphate 2 mg/ml / guaiFENesin 20 mg/ml oral solution (16 sources) Opioid Agonist Start: 3 take 10 mL by mouth every four hours before mealtime Guiatuss AC 10 mg-100 mg/5 mL oral liquid Take 10 mL every 4 hours by oral route. 03/07/2013 active Not Available Not Available Not Available escitalopram 10 mg oral tablet (20 sources) Serotonin Reuptake Inhibitor Start: escitalopram 10 mg tablet TAKE 1 TABLET EVERY DAY 09/06/2024 active Not Available Not Available Not Available Start: 07-14-2021 escitalopram 1 0 mg tablet TAKE 1 TABLET EVERY DAY 07/14/2021 active Start: 09-20-2020 escitalopram 1 0 mg tablet TAKE 1 TABLET EVERY DAY 09/20/2020 active famotidine 40 mg oral tablet (20 sources) Histamine-2 Receptor Antagonist Start: 12-02-2022 famotidine 40 mg tablet TAKE 1 TABLET EVERY DAY 12/18/2023 active Not Available Not Available Not Available Start: 11-15-2021 famotidine 40 mg tablet TAKE 1 TABLET EVERY DAY 11/15/2021 active Start: 02-13-2021 famotidine 40 mg tablet TAKE 1 TABLET EVERY DAY 02/13/2021 active Start: 03-21-2020 famotidine 40 mg tablet TAKE 1 TABLET EVERY DAY 03/21/2020 active End: 04-23-2017 take 1 tablet by mouth twice daily Pepcid 20 mg tablet Take 1 tablet twice a day by oral route. 04/23/2017 completed Not Available Not Available Not Available levothyroxine sodium 0.075 mg oral tablet (20 sources) l-Thyroxine Start: 09-06-2024 take 1 tablet by mouth once daily levothyroxine 75 mcg tablet Take 1 tablet every day by oral route. 09/06/2024 active Not Available Not Available Not Available Start: 07-20-2023 levothyroxine 75 mcg tablet TAKE 1 TABLET EVERY DAY 07/20/2023 active Not Available Not Available Not Available Start: 02-13-2023 take 1 capsule by mo uth once daily Levothyroxine 75 mcg capsule Active 75 ug PO DAILY February 13, 2023 12:00am Start: 06-26-2022 levothyroxine 75 mcg tablet TAKE 1 TABLET EVERY DAY 06/26/2022 active Not Available Not Available Not Available Start: 07-14-2021 levothyroxine 75 mcg tablet TAKE 1 TABLET EVERY DAY 07/14/2021 active Start: 09-20-2020 levothyroxine 75 mcg tablet TAKE 1 TABLET EVERY DAY 09/20/2020 active ramipril 2.5 mg oral capsule (20 sources) Angiotensin Converting Enzyme Inhibitor Start: 11-14-2022 ramipril 2.5 mg capsule TAKE 1 CAPSULE EVERY DAY 11/29/2023 active Not Available Not Available Not Available Start: 11-15-2021 take 1 capsule by mo uth once daily ramipril 2.5 mg capsule Take 1 capsule every day by oral route. 11/15/2021 active Start: 08-23-2019 take 1 capsule by mo uth once daily ramipril 2.5 mg capsule Take 1 capsule every day by oral route. 08/23/2019 active End: 04-17-2016 ramipril ad 04/17/2016 compl eted Not Available Not Available Not Available End: 04-17-2016 ramipril ad 04/17/2016 compl eted rosuvastatin calcium 10 mg oral tablet (20 sources) HMG-CoA Reductase Inhibitor Start: 02-13-2023 take 1 tablet by mouth once daily rosuvastatin 10 mg tablet Take 1 tablet every day by oral route. 09/06/2024 active Not Available Not Available Not Available Completed/Discontinued Medications Medication Drug Class(es) Dates Sig (Normalized) Sig (Original) acetaminophen 325 mg / HYDROcodone bitartrate 5 mg oral tablet (20 sources) Opioid Agonist Start: 02-25-2022 End: 03-04-2023 Hydrocodone-Acetami nophen 5-325 mg tablet Discontinued 1 {tbl} PO EVERY 6 HOURS as needed for pain 02 17February 25, 2022 March 04, 2023 1:01pm Start: 02-25-2022 End: 03-04-2023 take 1 tablet by mouth every six hours Hydrocodone-Acetaminophen Discontinued 1 TABLET PO EVERY 6 HOURS 02 17February 25, 2022 March 04, 2023 1:01pm Start: 02-12-2012 take 1 tablet by victoriano th every six hours as needed Vicodin 5 mg-500 mg tablet Take 1 tablet every 6 hours by oral route as needed. 02/12/2012 active Not Available Not Available Not Available acetaminophen 325 mg / oxyCODONE hydrochloride 5 mg oral tablet (13 sources) Opioid Agonist End: 11-15-2021 take 1 tablet by mouth every four to six hours oxycodone-acetaminophen 5 mg-325 mg tablet Take 1 tablet every 4-6 hours by oral route. 11/15/[address] Beltran Not Available Not Available Not Available Acyclovir (16 sources) Herpesvirus Nucleoside Analog DNA Polymerase Inhibitor, Herpes Simplex Virus Nucleoside Analog DNA Polymerase Inhibitor, Herpes Zoster Virus Nucleoside Analog DNA Polymerase Inhibitor End: 09-19-2020 acyclovir 09/19/2020 completed Not Available Not Available Not Available End: 09-19-2020 acyclovir 09/19/2020 complet ed amoxicillin 500 mg oral tablet (16 sources) Penicillin-class Antibacterial Start: 05-28-2018 End: 11-23-2018 take 1 tablet by mouth every eight hours amoxicillin 500 mg tablet Take 1 tablet every 8 hours by oral route for 7 days. 05/28/2018 11/23/2018 completed Not Available Not Available Not Available azithromycin 250 mg oral tablet (16 sources) Macrolide Antimicrobial Start: 05-13-2024 End: 05-24-2024 Zithromax Z-Korey 250 mg tablet as directed 05/13/2024 05/24/2024 completed Not Available Not Available Not Available Start: 11-19-2022 End: 02-18-2023 Zithromax Z-Korey 250 mg table t as directed 02/11/2023 02/18/2023 completed Not Available Not Available Not Available Start: 09-15-2022 End: 09-19-2022 Zithromax Z-Korey 250 mg table t as directed 09/15/2022 09/19/2022 completed Start: 03-21-2019 End: 03-24-2019 Zithromax Z-Korey 250 mg table t as directed 03/21/2019 03/24/2019 completed benzonatate 100 mg oral capsule (16 sources) Non-narcotic Antitussive Start: 03-28-2024 End: 08-15-2024 take 1 capsule by mouth every six hours as needed benzonatate 100 mg capsule Take 1 capsule every 6 hours by oral route as needed for 7 days. 03/28/2024 08/15/2024 completed Not Available Not Available Not Available Start: 04-05-2018 End: 05-25-2018 take 1 capsule by mouth every six hours as needed Tessalon Perles 100 mg capsule Take 1 capsule every 6 hours by oral route as needed for 7 days. 04/05/2018 05/25/2018 completed Not Available Not Available Not Available betamethasone 0.5 mg/ml / clotrimazole 10 mg/ml topical cream (16 sources) Azole Antifungal, Corticosteroid Start: 10-09-2016 End: 12-16-2016 Lotrisone 1 %-0.05 % topical cream APPLY TO THE AFFECTED AND SURROUNDING AREAS OF SKIN BY TOPICAL ROUTE 2 TIMES PER DAY IN THE MORNING AND EVENING FOR 2 WEEKS 10/09/2016 12/16/2016 completed Not Available Not Available Not Available cephalexin 500 mg oral capsule (16 sources) Cephalosporin Antibacterial Start: 08-03-2023 End: 08-20-2023 take 1 capsule by mouth three times daily cephalexin 500 mg capsule Take 1 capsule 3 times a day by oral route for 5 days. 08/03/2023 08/20/2023 completed Not Available Not Available Not Available Start: 04-23-2017 End: 09-07-2017 take 1 capsule by mouth twice daily Keflex 500 mg capsule Take 1 capsule twice a day by oral route for 5 days. 04/23/2017 09/07/2017 completed Not Available Not Available Not Available cholecalciferol 0.025 mg oral tablet (20 sources) Vitamin D Start: 02-13-2023 End: 06-28-2024 take 1 tablet by mouth once daily Cholecalciferol (Vitamin D3) 25 mcg (1,000 unit) tablet Discontinued 25 ug PO DAILY February 13, 2023 12:00am June 28, 2024 11:44am take 1 tablet by mouth once kinga y Vitamin D3 25 mcg (1,000 unit) tablet Take 1 tablet every day by oral route. active Not Available Not Available Not Available cyclobenzaprine hydrochloride 10 mg oral tablet (16 sources) Muscle Relaxant Start: 01-15-2015 End: 03-07-2016 take 1 tablet by mouth three times daily as needed cyclobenzaprine 10 mg tablet Take 1 tablet 3 times a day by oral route as needed. 01/15/2015 03/07/2016 completed Not Available Not Available Not Available dexlansoprazole 60 mg delayed release oral capsule (16 sources) Proton Pump Inhibitor Start: 03-11-2012 End: 05-06-2012 take 1 capsule by mouth once daily Dexilant 60 mg capsule, delayed release Take 1 capsule every day by oral route for 56 days. 03/11/2012 05/06/2012 completed Not Available Not Available Not Available dextromethorphan hydrobromide 2 mg/ml / guaiFENesin 40 mg/ml oral suspension (5 sources) Uncompetitive H-tddpfd-J-asparta te Receptor Antagonist, Sigma-1 Agonist Start: 05-28-2023 End: 06-28-2024 Dextromethorphan-Gu aifenesin (Adult [facility]-Tussin Dm Max) 10-200 mg/5 mL liquid Discontinued 10 mL PO EVERY 6-8 HOURS as needed for cough 118 May 28, 2023 1:00am June 28, 2024 11:44am Start: 05-28-2023 Dextromethorph an-Guaifenesin (Adult [facility]-Tussin Dm Max) 10-200 mg/5 mL liquid Active 10 ML PO EVERY 6-8 HOURS 118 May 28, 2023 1:00am docusate sodium 100 mg oral capsule (13 sources) End: 11-15-2021 take 1 capsule by mouth twice daily docusate sodium 100 mg capsule Take 1 capsule twice a day by oral route. 11/15/[address] Beltran Not Available Not Available Not Available doxycycline hyclate 100 mg oral capsule (10 sources) Tetracycline- class Drug Start: 05-24-2024 End: 08-15-2024 take 1 capsule by mouth twice daily doxycycline hyclate 100 mg capsule Take 1 capsule twice a day by oral route for 7 days. 05/24/2024 08/15/2024 completed Not Available Not Available Not Available Start: 09-19-2022 End: 11-14-2022 take 1 capsule by mouth twice daily doxycycline hyclate 100 mg capsule Take 1 capsule twice a day by oral route for 7 days. 09/19/2022 11/14/2022 completed Not Available Not Available Not Available gabapentin 300 mg oral capsule (20 sources) Anti-epileptic Agent Start: 04-17-2017 End: 05-28-2018 take 1 capsule by mouth three times daily gabapentin 300 mg capsule Take 1 capsule(s) 3 times a day by oral route. 04/17/2017 05/28/2018 completed Not Available Not Available Not Available Start: 04-21-2014 take 1 capsule by mo [facility] twice daily Neurontin 100 mg capsule Take 1 capsule twice a day by oral route. 04/21/2014 active Not Available Not Available Not Available HYDROcodone (16 sources) Opioid Agonist End: 09-26-2020 Hydrocodone 09/26/2020 compl eted Not Available Not Available Not Available End: 09-26-2020 Hydrocodone 09/26/2020 compl eted ibuprofen 800 mg oral tablet (16 sources) Nonsteroidal Anti-inflammatory Drug Start: 11-05-2015 End: 11-23-2018 take 1 tablet by mouth three times daily as needed ibuprofen 800 mg tablet Take 1 tablet 3 times a day by oral route as needed. 11/05/2015 11/23/2018 completed Not Available Not Available Not Available 24 hr isosorbide mononitrate 120 mg extended release oral tablet (20 sources) Nitrate Vasodilator Start: 08-23-2019 End: 09-06-2024 take 1 tablet by mouth once daily isosorbide mononitrate ER 120 mg tablet,extended release 24 hr Take 1 tablet every day by oral route. 08/23/2019 09/06/2024 completed Not Available Not Available Not Available take 1 tablet by [facility] once daily Imdur 30 mg tablet,extended release Take 1 tablet every day by oral route. active Not Available Not Available Not Available End: 10-29-2016 take 1.5 tablets by mouth once daily isosorbide mononitrate ER 60 mg tablet,extended release 24 hr Take 1.5 tablets every day by oral route. 10/29/2016 completed Not Available Not Available Not Available Kenalog 40 mg/mL suspension for injection (16 sources) Start: 10-02-2021 End: 11-07-2021 Kenalog 40 mg/mL suspension for injection Take 1 mL by injection route. 10/02/2021 11/07/2021 completed Not Available Not Available Not Available Start: 10-02-2021 End: 11-07-2021 Kenalog 40 mg/mL suspension for injection Take 1 mL by injection route. 10/02/2021 11/07/2021 completed Start: 10-02-2021 Kenalog 40 mg/ mL suspension for injection Take 1 mL by injection route. 10/02/2021 active Start: 11-09-2018 End: 11-23-2018 Kenalog 40 mg/mL suspension for injection Take 1 mL by injection route. 11/09/2018 11/23/2018 completed loratadine 10 mg oral tablet (16 sources) Start: 03-21-2019 End: 04-03-2021 take 1 tablet by mouth once daily loratadine 10 mg tablet Take 1 tablet every day by oral route for 10 days. 03/21/2019 04/03/2021 completed Not Available Not Available Not Available meclizine hydrochloride 25 mg oral tablet (16 sources) Antiemetic End: 03-28-2020 take 1 tablet by mouth three times daily meclizine 25 mg tablet Take 1 tablet 3 times a day by oral route. 03/28/2020 completed per er Not Available Not Available Not Available Medrol (Korey) 4 mg tablets in a dose pack (16 sources) Start: 04-25-2024 End: 08-15-2024 Medrol (Korey) 4 mg tablets in a dose pack Take by oral route ad 04/25/2024 08/15/2024 completed Not Available Not Available Not Available Start: 04-25-2024 Medrol (Korey) 4 mg tablets in a dose pack Take by oral route ad 04/25/2024 active Not Available Not Available Not Available Start: 09-19-2022 End: 11-14-2022 Medrol (Korey) 4 mg tablets in a dose pack Take by oral route ad 09/19/2022 11/14/2022 completed Not Available Not Available Not Available Start: 09-19-2022 End: 11-14-2022 Medrol (Korey) 4 mg tablets in a dose pack Take by oral route ad 09/19/2022 11/14/2022 completed Start: 09-19-2022 Medrol (Korey) 4 mg tablets in a dose pack Take by oral route ad 09/19/2022 active Start: 03-30-2019 End: 04-12-2019 Medrol (Korey) 4 mg tablets in a dose pack Take by oral route ad 03/30/2019 04/12/2019 completed meloxicam 15 mg oral tablet (16 sources) Nonsteroidal Anti-inflammatory Drug Start: 10-12-2013 End: 10-22-2013 take 1 tablet by mouth once daily Mobic 15 mg tablet Take 1 tablet every day by oral route for 10 days. 10/12/2013 10/22/2013 completed Not Available Not Available Not Available omeprazole 40 mg delayed release oral capsule (16 sources) Proton Pump Inhibitor End: 11-12-2016 take 1 capsule by mouth once daily omeprazole 40 mg capsule,delayed release Take 1 capsule every day by oral route. 11/12/2016 completed Not Available Not Available Not Available pitavastatin calcium 2 mg oral tablet (16 sources) HMG-CoA Reductase Inhibitor Start: 01-15-2015 End: 06-08-2015 take 1 tablet by mouth once daily Livalo 2 mg tablet Take 1 tablet every day by oral route. 01/15/2015 06/08/2015 completed Not Available Not Available Not Available predniSONE 20 mg oral tablet (19 sources) Start: 05-24-2024 End: 08-15-2024 prednisone 20 mg tablet 3 tabs x 3 days, 2 tabs x 3 days and 1 tab x 3 days 05/24/2024 08/15/2024 completed Not Available Not Available Not Available End: 09-26-2020 prednisone 09/26/2020 comple brittni Not Available Not Available Not Available End: 09-26-2020 prednisone 09/26/2020 comple brittni promethazine hydrochloride 12.5 mg oral tablet (16 sources) Phenothiazine Start: 04-10-2015 End: 03-07-2016 take 1-2 tablets by mouth three times daily as needed for nausea promethazine 12.5 mg tablet Take 1-2 tablets PO TID PRN for nausea 04/10/2015 03/07/2016 completed Not Available Not Available Not Available Vesicare (16 sources) Cholinergic Muscarinic Antagonist End: 04-23-2017 Vesicare 04/23/2017 completed Not Available Not Available Not Available End: 04-23-2017 Vesicare 04/23/2017 complete d spironolactone 50 mg oral tablet (13 sources) Aldosterone Antagonist Start: 04-03-2021 End: 08-18-2022 take 1 tablet by mouth once daily spironolactone 50 mg tablet Take 1 tablet every day by oral route for 14 days. 04/03/2021 08/18/2022 completed Not Available Not Available Not Available sulfamethoxazole 800 mg / trimethoprim 160 mg oral tablet (16 sources) Dihydrofolate Reductase Inhibitor Antibacterial, Sulfonamide Antimicrobial Start: 01-24-2018 End: 03-10-2018 take 1 tablet by mouth twice daily Bactrim DS 800 mg-160 mg tablet Take 1 tablet twice a day by oral route for 7 days. 01/24/2018 03/10/2018 completed Not Available Not Available Not Available traMADol hydrochloride 50 mg oral tablet (16 sources) Opioid Agonist Start: 04-12-2019 End: 09-23-2021 take 1 tablet by mouth every six hours as needed tramadol 50 mg tablet Take 1 tablet every 6 hours by oral route as needed for 7 days. 04/12/2019 08/10/2019 completed ubidecarenone 100 mg oral capsule (20 sources) Start: 02-13-2023 End: 09-06-2024 Coenzyme Q10 (Co Q-10) 100 mg capsule Discontinued 100 mg PO DAILY February 13, 2023 12:00am March 04, 2023 1:01pm Problems Active Problems Problem Classification Problem Date Documented Date Episodic/Chronic Abdominal hernia (16 sources) Hiatal hernia Episodic Coronary atherosclerosis and other heart disease (20 sources) Coronary atherosclerosis; Translations: [Coronary arteriosclerosis in viejas artery] Onset: 03-04-2021 Resolved: 09-06-2024 Chronic Disorders of lipid metabolism (20 sources) Mixed hyperlipidemia; Translations: [Mixed hyperlipidemia] Onset: 09-26-2020 Resolved: 09-06-2024 Chronic E Codes: Fall (8 sources) Fall; Translations: [Unspecified fall, initial encounter] 03-05-2022 Episodic Esophageal disorders (20 sources) Gastroesophageal reflux disease; Translations: [Hall's esophagus] Onset: 02-13-2016 02-13-2023 Chronic Essential hypertension (20 sources) Benign essential hypertension; Translations: [Essential (primary) hypertension] Onset: 09-26-2020 Resolved: 09-06-2024 Chronic Menopausal disorders (3 sources) Postmenopausal bleeding; Translations: [Postmenopausal bleeding] Onset: 09-26-2020 Resolved: 10-14-2024 Chronic Mood disorders (20 sources) Depressive disorder; Translations: [Other specified depressive episodes] Onset: 09-26-2020 Resolved: 09-06-2024 Chronic Nutritional deficiencies (20 sources) Vitamin D deficiency; Translations: [Vitamin D deficiency, unspecified] Onset: 03-07-2016 Resolved: 09-06-2024 Chronic Osteoarthritis (20 sources) Degenerative joint disease involving multiple joints; Translations: [Polyosteoarthritis, unspecified] Onset: 09-26-2020 Resolved: 09-02-2023 Chronic Other circulatory disease (1 source) Other specified symptoms and signs involving the circulatory and respiratory systems; Translations: [Other specified symptoms and signs involving the circulatory and respiratory systems] Onset: 09-19-2022 Episodic Other liver diseases (16 sources) Steatosis of liver Chronic Other lower respiratory disease (2 sources) Shortness of breath; Translations: [Shortness of breath] Onset: 09-19-2022 Episodic Other lower respiratory disease (2 sources) Dyspnea; Translations: [Shortness of breath] 06-28-2024 Episodic Other nervous system disorders (16 sources) Carpal tunnel syndrome; Translations: [Carpal tunnel syndrome, unspecified upper limb] Chronic Other nutritional; endocrine; and metabolic disorders (2 sources) Morbid obesity; Translations: [Morbid (severe) obesity due to excess calories] Onset: 09-26-2020 Resolved: 09-02-2023 Chronic Spondylosis; intervertebral disc disorders; other back problems (16 sources) Cervical disc disorder; Translations: [Cervical disc disorder, unspecified, unspecified cervical region] Chronic Sprains and strains (16 sources) Sprain of knee; Translations: [Sprain of unspecified site of left knee, initial encounter] 03-05-2022 Episodic Thyroid disorders (20 sources) Acquired hypothyroidism; Translations: [Hypothyroidism, unspecified] Onset: 11-26-2018 Resolved: 09-06-2024 Chronic Unclassified (1 source) Cough, unspecified; Translations: [Cough, unspecified] Onset: 09-19-2022 Urinary tract infections (3 sources) Urinary tract infectious disease; Translations: [Urinary tract infection, site not specified] 08-04-2023 Episodic Viral infection (16 sources) Disease caused by 2019-nCoV Onset: 05-23-2020 Past or Other Problems Problem Classification Problem Date Documented Date Episodic/Chronic Abdominal pain (17 sources) Epigastric pain; Translations: [Epigastric pain] Onset: 10-14-2024 Resolved: 10-14-2024 Episodic Acute bronchitis (20 sources) Acute bronchitis; Translations: [Acute bronchitis, unspecified] Onset: 09-19-2022 Resolved: 05-24-2024 Episodic Administrative/social admission (2 sources) Advance care planning; Translations: [Other specified counseling] Onset: 03-02-2023 Resolved: 03-08-2024 Episodic Allergic reactions (1 source) Contact dermatitis Onset: 10-02-2021 Resolved: 10-02-2021 Episodic Anxiety disorders (19 sources) Generalized anxiety disorder; Translations: [Anxiety] Onset: 04-03-2021 Resolved: 07-10-2023 Chronic Conditions associated with dizziness or vertigo (3 sources) Dizziness; Translations: [Dizziness and giddiness] Onset: 03-31-2024 06-28-2024 Episodic Genitourinary symptoms and ill-defined conditions (16 sources) Dysuria Resolved: 01-06-2012 Episodic Immunizations and screening for infectious disease (2 sources) Influenza vaccine needed; Translations: [Encounter for immunization] Onset: 03-02-2023 Resolved: 03-08-2024 Episodic Malaise and fatigue (20 sources) Malaise and fatigue; Translations: [Fatigue] Resolved: 09-21-2014 06-24-2024 Episodic Nonspecific chest pain (20 sources) Chest pain; Translations: [Atypical chest pain] Onset: 06-28-2024 Resolved: 09-21-2015 06-28-2024 Episodic Other aftercare (2 sources) Long-term drug therapy; Translations: [Other computer terminal operator (current) drug therapy] Onset: 08-18-2022 Resolved: 09-02-2023 Episodic Other aftercare (1 source) Long-term current use of drug therapy; Translations: [Other computer terminal operator (current) drug therapy] Onset: 09-06-2024 Resolved: 09-06-2024 Episodic Other connective tissue disease (16 sources) Disorder of rotator cuff Resolved: 09-21-2014 Episodic Other connective tissue disease (16 sources) Muscle pain Resolved: 09-21-2014 Episodic Other hematologic conditions (16 sources) ESR raised Resolved: 09-21-2014 Episodic Other lower respiratory disease (20 sources) Cough; Translations: [Cough] Onset: 09-19-2022 Resolved: 02-11-2023 Episodic Other nervous system disorders (16 sources) Holt's palsy; 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-2018 Episodic Other nervous system disorders (16 sources) Numbness of face Resolved: 09-21-2014 Episodic Other non-traumatic joint disorders (1 source) Pain in left knee; Translations: [Pain in left knee] Onset: 12-31-2023 Episodic Other screening for suspected conditions (not mental disorders or infectious disease) (6 sources) Cardiovascular stress test abnormal; Translations: [Abnormal result of other cardiovascular function study] Onset: 12-07-2023 04-28-2023 Episodic Other upper respiratory infections (20 sources) Acute sinusitis; Translations: [Acute sinusitis, unspecified] Resolved: 03-07-2014 05-28-2023 Episodic Residual codes; unclassified (16 sources) Edema Resolved: 09-21-2014 Episodic Residual codes; unclassified (1 source) Edema of lower extremity Onset: 04-03-2021 Resolved: 04-03-2021 Episodic Residual codes; unclassified (1 source) Other specified postprocedural states; Translations: [Other specified postprocedural states] Onset: 12-31-2023 Episodic Spondylosis; intervertebral disc disorders; other back problems (20 sources) Backache; Translations: [Disorder of back] Onset: 08-18-2022 Resolved: 08-18-2022 Episodic Unclassified (1 source) Long-term drug therapy Onset: 04-03-2021 Resolved: 04-03-2021 Unclassified (1 source) Influenza vaccine needed Onset: 04-03-2021 Resolved: 04-03-2021 Unclassified (2 sources) Suspected disease caused by 2019-nCoV; Translations: [Contact with and (suspected) exposure to COVID-19] Onset: 02-11-2023 Resolved: 02-11-2023 Unclassified (1 source) History of SARS-CoV-2; Translations: [Personal history of COVID-19] Onset: 07-10-2023 Resolved: 07-10-2023 Results Test Name Value Interpretation Reference Range Facility Absolute lymphocyte countOrd ered By: Padmini Leong on 09-02-2024 Lymphocytes Auto (Unsp spec) [#/Vol] 2.09 10*3/uL 0.83-4.51 [facility] Absolute neutrophil countOrd ered By: Padmini Leong on 09-02-2024 Neutrophils (Bld) [#/Vol] 4.3 10*3/uL 2.0-7.7 [facility] Anion gap in Serum or Plasma Ordered By: Padmini Leong on 09-02-2024 Anion gap [Moles/Vol] 10 mmol/L 5-15 [facility] Automated lymphocyte count a s percentage of total leukocytesOrdered By: Padmini Leong on 09-02-2024 Lymphocytes/100 WBC Auto (Unsp spec) 28.9 % - [facility] BUN/creatinine ratioOrdered By: Padmini Leong on 09-02-2024 Urea nitrogen/Creatinine [Mass ratio] 20.1 mg/mg High 10-20 [facility] Basophil percentageOrdered B y: Padmini Leong on 09-02-2024 Basophils/100 WBC (Bld) 0.3 % 0-1 [facility] Bilirubin, totalOrdered By: Padmini Leong on 09-02-2024 Bilirubin [Mass/Vol] 0.29 mg/dL 0.00-1.[address] [facility] CBC W/Diff, Automatedon 08-16 Absolute Lymph 2.09 X10 3/uL Normal 0.83-4.51 [facility] Comment on above: Performed By: #### L 500.4050, L100.0100, L500.4100, L501.9520, L506.1001 #### [facility] [address] [place], [address] Absolute Neut 4.3 X10 3/uL Normal 2.0-7.7 [facility] Comment on above: Performed By: #### L 500.4050, L100.0100, L500.4100, L501.9520, L506.1001 #### [facility] [address] [place], [address] Basophils/100 WBC (Bld) 0.3 % Normal 0-1 [facility] Comment on above: Performed By: #### L 500.4050, L100.0100, L500.4100, [id number], L506.1001 #### [facility] [address] [place], [address] Eosinophils/100 WBC (Bld) 2.4 % Normal 0-5 [facility] Comment on above: Performed By: #### L 500.4050, L100.0100, L500.4100, L501.9520, L506.1001 #### [facility] [address] [place], [address] Erythrocyte distribution width (RBC) [Ratio] 12.7 % Normal 11.6-14.6 [facility] Comment on above: Performed By: #### L 500.4050, L100.0100, L500.4100, L501.9520, L506.1001 #### [facility] [address] [place], [address] Hematocrit (Bld) [Volume fraction] 40.1 % Normal 37-47 [facility] Comment on above: Performed By: #### L 500.4050, L100.0100, L500.4100, L501.9520, L506.1001 #### [facility] [address] [place], [address] Hemoglobin (Bld) [Mass/Vol] 12.9 g/dL Normal 12.0-15.0 [facility] Comment on above: Performed By: #### L 500.4050, L100.0100, L500.4100, L501.9520, L506.1001 #### [facility] [address] [place], [address] IG% 0.300 Normal 0.0-0.9 [facility] Comment on above: Result Comment: IG% - Immature Granulocytes (promyelocytes, myelocytes and metamyelocytes) > 1% indicates that a LEFT SHIFT is Present. Performed By: #### L 500.4050, L100.0100, L500.4100, L501.9520, L506.1001 #### [facility] [address] [place], [address] Lymphocytes/100 WBC (Bld) 28.9 % Normal 19-41 [facility] Comment on above: Performed By: #### L 500.4050, L100.0100, L500.4100, L501.9520, L506.1001 #### [facility] [address] [place], [address] MCH (RBC) [Entitic mass] 29.8 pg Normal 27.0-32.0 [facility] Comment on above: Performed By: #### L 500.4050, L100.0100, L500.4100, L501.9520, L506.1001 #### [facility] [address] [place], [address] MCHC (RBC) [Mass/Vol] 32.2 g/dL Normal 32-36 [facility] Comment on above: Performed By: #### L 500.4050, L100.0100, L500.4100, L501.9520, L506.1001 #### [facility] [address] [place], [address] MCV (RBC) [Entitic vol] 92.6 fL Normal 81-99 [facility] Comment on above: Performed By: #### L 500.4050, L100.0100, L500.4100, [id number], L506.1001 #### [facility] [address] [place], [address] Monocytes/100 WBC (Bld) 9.0 % Normal 0-10 [facility] Comment on above: Performed By: #### L 500.4050, L100.0100, L500.4100, [id number], L506.1001 #### [facility] [address] [place], [address] Neutrophils/100 WBC (Bld) 59.1 % Normal 47-70 [facility] Comment on above: Performed By: #### L 500.4050, L100.0100, L500.4100, L501.9520, L506.1001 #### [facility] [address] [place], [address] Nucleated RBC (Bld) [#/Vol] 0 10*3/uL Normal 0-5 [facility] Comment on above: Performed By: #### L 500.4050, L100.0100, L500.4100, L501.9520, L506.1001 #### [facility] [address] [place], [address] Platelet mean volume (Bld) [Entitic vol] 9.1 fL Normal 6.2-12.0 [facility] Comment on above: Performed By: #### L 500.4050, L100.0100, L500.4100, L501.9520, L506.1001 #### [facility] [address] [place], [address] Platelets (Bld) [#/Vol] 264 10*3/uL Normal 150-450 [facility] Comment on above: Performed By: #### L 500.4050, L100.0100, L500.4100, L501.9520, L506.1001 #### [facility] [address] [place], [address] RBC (Bld) [#/Vol] 4.33 10*6/uL Normal 4.2-5.4 [facility] Comment on above: Performed By: #### L 500.4050, L100.0100, L500.4100, L501.9520, L506.1001 #### [facility] [address] [place], [address] RDW SD 43.4 fl Normal 35.1-43.9 [facility] Comment on above: Performed By: #### L 500.4050, L100.0100, L500.4100, L501.9520, L506.1001 #### [facility] [address] [place], [address] WBC (Bld) [#/Vol] 7.2 10*3/uL Normal 4.4-11.0 [facility] Comment on above: Performed By: #### L 500.4050, L100.0100, L500.4100, L501.9520, L506.1001 #### [facility] [address] [place], [address] Calculated very low density lipoprotein (VLDL) cholesterol measurementOrdered By: Padmini Leong on 09-02-2024 Calculated very low density lipoprotein (VLDL) cholesterol measurement 11 mg/dL 5-40 [facility] VLDL Cholesterol 11 mg/dL 5-40 [facility] Carbon dioxide, total [Moles /volume] in Central venous bloodOrdered By: Padmini Leong on 09-02-2024 CO2 [Moles/Vol] 23.9 mmol/L 21.0-32.0 [facility] Chloride assayOrdered By: Ash Leong on 09-02-2024 Chloride [Moles/Vol] 105 mmol/L 98-[address] [facility] Comprehensive Metabolic Prof ilon 09-02-2024 Albumin [Mass/Vol] 4.0 g/dL Normal 3.4-4.8 [facility] Comment on above: Performed By: #### L 500.4050, L100.0100, L500.4100, L501.9520, L506.1001 #### [facility] [address] [place], [address] Albumin/Globulin [Mass ratio] 1.3 {ratio} Normal 0.9-2.4 [facility] Comment on above: Performed By: #### L 500.4050, L100.0100, L500.4100, L501.9520, L506.1001 #### [facility] [address] [place], [address] ALK PHOS 87 U/L Normal 35-104 [facility] Comment on above: Performed By: #### L 500.4050, L100.0100, L500.4100, L501.9520, L506.1001 #### [facility] [address] [place], [address] ALT [Catalytic activity/Vol] 10 U/L Normal <=34 [facility] Comment on above: Performed By: #### L 500.4050, L100.0100, L500.4100, L501.9520, L506.1001 #### [facility] [address] [place], [address] AST [Catalytic activity/Vol] 19 U/L Normal <=31 [facility] Comment on above: Performed By: #### L 500.4050, L100.0100, L500.4100, L501.9520, L506.1001 #### [facility] [address] [place], [address] Bilirubin [Mass/Vol] 0.29 mg/dL Normal 0.00-1.[address] [facility] Comment on above: Performed By: #### L 500.4050, L100.0100, L500.4100, L501.9520, L506.1001 #### [facility] [address] [place], [address] BUN/CRE 20.1 RATIO High 10-20 [facility] Comment on above: Performed By: #### L 500.4050, L100.0100, L500.4100, L501.9520, L506.1001 #### [facility] [address] [place], [address] Calcium [Mass/Vol] 9.0 mg/dL Normal 7.6-11.0 [facility] Comment on above: Performed By: #### L 500.4050, L100.0100, L500.4100, L501.9520, L506.1001 #### [facility] [address] [place], [address] Chloride [Moles/Vol] 105 mmol/L Normal 98-[address] [facility] Comment on above: Performed By: #### L 500.4050, L100.0100, L500.4100, L501.9520, L506.1001 #### [facility] [address] [place], [address] CO2 [Moles/Vol] 23.9 mmol/L Normal 21.0-32.0 [facility] Comment on above: Performed By: #### L 500.4050, L100.0100, L500.4100, L501.9520, L506.1001 #### [facility] [address] [place], [address] Creatinine [Mass/Vol] 0.80 mg/dL Normal 0.70-1.20 [facility] Comment on above: Performed By: #### L 500.4050, L100.0100, L500.4100, L501.9520, L506.1001 #### [facility] [address] [place], [address] GAP 10 Normal 5-15 [facility] Comment on above: Performed By: #### L 500.4050, L100.0100, L500.4100, L501.9520, L506.1001 #### [facility] [address] [place], [address] GFR/1.73 sq M.predicted among non-blacks MDRD (S/P/Bld) [Vol rate/Area] 77 mL/min/{1.73_m2} Normal >60 [facility] Comment on above: Result Comment: mL/m in/1.73m2 CKD-EPI Creatinine Equation (2020) Performed By: #### L 500.4050, L100.0100, L500.4100, L501.9520, L506.1001 #### [facility] [address] [place], [address] Globulin (S) [Mass/Vol] 3.1 g/dL Normal 2.2-4.2 [facility] Comment on above: Performed By: #### L 500.4050, L100.0100, L500.4100, L501.9520, L506.1001 #### [facility] [address] [place], [address] Glucose [Mass/Vol] 94 mg/dL Normal 70-99 [facility] Comment on above: Performed By: #### L 500.4050, L100.0100, L500.4100, L501.9520, L506.1001 #### [facility] [address] [place], [address] Potassium [Moles/Vol] 4.2 mmol/L Normal 3.3-5.1 [facility] Comment on above: Performed By: #### L 500.4050, L100.0100, L500.4100, L501.9520, L506.1001 #### [facility] [address] [place], [address] Sodium [Moles/Vol] 139 mmol/L Normal 133-145 [facility] Comment on above: Performed By: #### L 500.4050, L100.0100, L500.4100, L501.9520, L506.1001 #### [facility] [address] [place], [address] T PROT 7.1 g/dL Normal 5.9-8.4 [facility] Comment on above: Performed By: #### L 500.4050, L100.0100, L500.4100, L501.9520, L506.1001 #### [facility] [address] [place], [address] Urea nitrogen [Mass/Vol] 16 mg/dL Normal 4-19 [facility] Comment on above: Performed By: #### L 500.4050, L100.0100, L500.4100, L501.9520, L506.1001 #### [facility] [address] [place], [address] Eosinophil percentageOrdered By: Padmini Leong on 09-02-2024 Eosinophils/100 WBC (Bld) 2.4 % 0-5 [facility] Erythrocyte distribution wid th (RBC) [Ratio]Ordered By: Padmini Leong on 09-02-2024 Erythrocyte distribution width (RBC) [Entitic vol] 43.4 fL 35.1-43.9 [facility] Erythrocyte distribution wid th ratioOrdered By: Padmini Leong on 09-02-2024 Erythrocyte distribution width (RBC) [Ratio] 12.7 % 11.6-14.6 [facility] Erythrocyte distribution wid th standard deviationOrdered By: Padmini Leong on 09-02-2024 Erythrocyte distribution width (RBC) [Ratio] 43.4 fl 35.1-43.9 [facility] GFR/1.73 sq M.predicted judy g non-blacks MDRD (S/P/Bld) [Vol rate/Area]Ordered By: Padmini Leong on 09-02-2024 Estimated GFR (MDRD) Non-Af Amer 77 >60 [facility] Comment on above: mL/min/1.73m2 CKD-EP I Creatinine Equation (2020) Glomerular filtration rate ( GFR) estimation/1.73 sq m using serum, plasma, or whole bOrdered By: Padmini Leong on 09-02-2024 GFR/1.73 sq M.predicted among non-blacks MDRD (S/P/Bld) [Vol rate/Area] 77 mL/min/{1.73_m2} >60 [facility] Comment on above: mL/min/1.73m2 CKD-EP I Creatinine Equation (2020) Hematocrit Auto (Bld) [Volum e fraction]Ordered By: Padmini Leong on 09-02-2024 Hematocrit (Bld) [Volume fraction] 40.1 % 37-47 [facility] Hemoglobin measurementOrdere d By: Padmini Leong on 09-02-2024 Hemoglobin (Bld) [Mass/Vol] 12.9 g/dL 12.0-15.0 [facility] Immature granulocytes/100 WB C Auto (Bld)Ordered By: Pdamini Leong on 09-02-2024 Immature granulocytes/100 WBC (Bld) 0.300 % 0.0-0.9 [facility] Comment on above: IG% - Immature Granu locytes (promyelocytes, myelocytes and metamyelocytes) > 1% indicates that a LEFT SHIFT is Present. LDL calc ser/plasOrdered By: Padmini Leong on 09-02-2024 Cholesterol in LDL [Mass/Vol] 74 mg/dL [facility] Comment on above: Hmxjnwhkcv=984-259 m g/dL & Higher Wzpm=677 mg/dL or greater LDL Cholesterol, Calculated 74 mg/dL [facility] Comment on above: Nafxwarctw=833-251 m g/dL & Higher Esac=574 mg/dL or greater Laboratory - Chemistry and C hemistry - challengeOrdered By: Padmini Leong on 09-02-2024 AST [Catalytic activity/Vol] 19 U/L <32 [facility] Lipid Profileon 09-02-2024 CHOL:HDL 2.40 Normal [facility] Comment on above: Performed By: #### L 500.4050, L100.0100, L500.4100, L501.9520, L506.1001 #### [facility] [address] [place], [place], [id number] Cholesterol [Mass/Vol] 145 mg/dL Normal <=200 [facility] Comment on above: Result Comment: Chol esterol level, Desirable <200 mg/dL Borderline high cholesterol 200-239 mg/dL High cholesterol >=240 mg/dL Recommendations of the NCEP Adult Treatment Panel for the following risk-cutoff thresholds for the [place] population. Performed By: #### L 500.4050, L100.0100, L500.4100, L501.9520, L506.1001 #### [facility] [address] [place], [address] Cholesterol in HDL [Mass/Vol] 61 mg/dL Normal [facility] Comment on above: Result Comment: Sudha onal Cholesterol Education Program (NCEP) guidelines: <40 mg/dL: Low HDL-cholesterol (major risk factor for CHD) >= 60 mg/dL: High HDL-cholesterol (negative risk factor for CHD) HDL-cholesterol is affected by a number of factors, e.g. smoking, exercise, hormones, sex and age. Performed By: #### L 500.4050, L100.0100, L500.4100, L501.9520, L506.1001 #### [facility] [address] [place], [address] Cholesterol in LDL [Mass/Vol] 74 mg/dL Normal [facility] Comment on above: Result Comment: Bord vdcntq=843-479 mg/dL Higher Avkh=498 mg/dL or greater Performed By: #### L 500.4050, L100.0100, L500.4100, L501.9520, L506.1001 #### [facility] [address] [place], [address] Cholesterol in VLDL [Mass/Vol] 11 mg/dL Normal 5-40 [facility] Comment on above: Performed By: #### L 500.4050, L100.0100, L500.4100, L501.9520, L506.1001 #### [facility] [address] [place], [address] Triglyceride [Mass/Vol] 54 mg/dL Normal [facility] Comment on above: Result Comment: The drugs N-Acetylcysteine and Metamizole may falsely depress this assay. Normal range: <150 mg/dL Borderline High: 150-199 mg/dL High: 200-499 mg/dL Very High: >500 mg/dL Performed By: #### L 500.4050, L100.0100, L500.4100, L501.9520, L506.1001 #### [facility] [address] [place], [address] Lymphocytes Auto (Unsp spec) [#/Vol]Ordered By: Padmini Leong on 09-02-2024 Lymphocytes (Bld) [#/Vol] 2.09 10*3/uL 0.83-4.51 [facility] Lymphocytes/100 WBC Auto (Un sp spec)Ordered By: Padmini Leong on 09-02-2024 Lymphocytes/100 WBC (Bld) 28.9 % 19-41 [facility] MCV (mean corpuscular volume ) determinationOrdered By: Padmini Leong on 09-02-2024 MCV (RBC) [Entitic vol] 92.6 fL 81-99 [facility] Mean corpuscular hemoglobin (MCH) determinationOrdered By: Padmini Leong on 09-02-2024 MCH (RBC) [Entitic mass] 29.8 pg 27.0-32.0 [facility] Mean corpuscular hemoglobin concentration (MCHC) determinationOrdered By: Padmini Leong on 09-02-2024 MCHC (RBC) [Mass/Vol] 32.2 g/dL 32-36 [facility] Mean platelet volume determi nationOrdered By: Padmini Leong on 09-02-2024 Platelet mean volume (Bld) [Entitic vol] 9.1 fL 6.2-12.0 [facility] Monocyte percentageOrdered B y: Padmini Leong on 09-02-2024 Monocytes/100 WBC (Bld) 9.0 % 0-10 [facility] Neutrophil percentageOrdered By: Padmini Leong on 09-02-2024 Neutrophils/100 WBC (Bld) 59.1 % 47-70 [facility] Nucleated red blood cell per centageOrdered By: Padmini Leong on 09-02-2024 Nucleated RBC/100 WBC (Bld) [Ratio] 0 % 0-5 [facility] Platelet countOrdered By: Ash Leong on 09-02-2024 Platelets (Bld) [#/Vol] 264 10*3/uL 150-450 [facility] Potassium (Unsp spec) [Mass/ Vol]Ordered By: Padmini Leong on 09-02-2024 Potassium [Moles/Vol] 4.2 mmol/L 3.3-5.1 [facility] Potassium measurement (mass/ volume)Ordered By: Padmini Leong on 09-02-2024 Potassium (Unsp spec) [Mass/Vol] 4.2 mmol/L 3.3-5.1 [facility] RBC Auto (Bld) [#/Vol]Ordere d By: Padmini Leong on 09-02-2024 RBC (Bld) [#/Vol] 4.33 10*6/uL 4.2-5.4 [facility] Screening total cholesterol/ high density lipoprotein (HDL) cholesterol ratioOrdered By: Padmini Leong on 09-02-2024 Cholesterol.total/Choles terol in HDL [Mass ratio] 2.40 {ratio} [facility] Serum creatinine measurement (mass/volume)Ordered By: Padmini Leong on 09-02-2024 Creatinine [Mass/Vol] 0.80 mg/dL 0.70-1.20 [facility] Serum globulin measurementOr dered By: Padmini Leong on 09-02-2024 Globulin (S) [Mass/Vol] 3.1 g/dL 2.2-4.2 [facility] Serum glucose measurement (m ass/volume)Ordered By: Padmini Leong on 09-02-2024 Glucose [Mass/Vol] 94 mg/dL 70-99 [facility] Serum or plasma alanine quinonez otransferase (ALT) measurementOrdered By: Padmini Leong on 09-02-2024 ALT [Catalytic activity/Vol] 10 U/L <35 [facility] Serum or plasma albumin amanda urement (mass/volume)Ordered By: Padmini Leong on 09-02-2024 Albumin [Mass/Vol] 4.0 g/dL 3.4-4.8 [facility] Serum or plasma albumin/glob ulin mass ratioOrdered By: Padmini Leong on 09-02-2024 Albumin/Globulin [Mass ratio] 1.3 {ratio} 0.9-2.4 [facility] Serum or plasma alkaline david sphatase measurementOrdered By: Padmini Leong on 09-02-2024 ALP [Catalytic activity/Vol] 87 U/L 35-104 [facility] Serum or plasma calcium amanda urement (mass/volume)Ordered By: Padmini Leong on 09-02-2024 Calcium [Mass/Vol] 9.0 mg/dL 7.6-11.0 [facility] Serum or plasma cholesterol in HDL measurement (mass/volume)Ordered By: Padmini Leong on 09-02-2024 Cholesterol in HDL [Mass/Vol] 61 mg/dL >40 [facility] Comment on above: National Cholesterol Education Program (NCEP) guidelines:<40 mg/dL: Low HDL-cholesterol (major risk factor for CHD)>= 60 mg/dL: High HDL-cholesterol (negative risk factor for CHD)HDL-cholesterol is affected by a number of factors, e.g. smoking, exercise, hormones, sex and age. Serum or plasma cholesterol measurement (mass/volume)Ordered By: Padmini Leong on 09-02-2024 Cholesterol [Mass/Vol] 145 mg/dL <201 [facility] Comment on above: Cholesterol level, D esirable <200 mg/dLBorderline high cholesterol 200-239 mg/dLHigh cholesterol >=240 mg/dLRecommendations of the NCEP Adult Treatment Panel for the following risk-cutoff thresholds for the [place] population. Serum or plasma urea nitroge n measurement (mass/volume)Ordered By: Padmini Leong on 09-02-2024 Urea nitrogen [Mass/Vol] 16 mg/dL 4-19 [facility] Sodium levelOrdered By: Roshni Bullard on 09-02-2024 Sodium [Moles/Vol] 139 mmol/L 133-145 [facility] TSH DL <= 0.005 mIU/L QnOrde red By: Padmini Leong on 09-02-2024 Thyroid Stimulating Hormone (TSH) 2.340 uIU/mL 0.300-4.200 [facility] TSH Qn 2.340 uIU/mL 0.300-4.200 [facility] Thyroid Stim Hormone (TSH)on 09-02-2024 TSH 2.340 uIU/mL Normal 0.300-4.200 [facility] Comment on above: Performed By: #### L 500.4050, L100.0100, L500.4100, L501.9520, L506.1001 #### [facility] [address] [place], [address] Total proteinOrdered By: Bozena Leong on 09-02-2024 Protein [Mass/Vol] 7.1 g/dL 5.9-8.4 [facility] Triglycerides measurementOrd ered By: Padmini Leong on 09-02-2024 Triglyceride [Mass/Vol] 54 mg/dL <199 [facility] Comment on above: The drugs N-Acetylcy steine and Metamizole may falsely depress this assay. Normal range: <150 mg/dLBorderline High: 150-199 mg/dLHigh: 200-499 mg/dLVery High: >500 mg/dL Vitamin D, 25-hydroxyOrdered By: Padmini Leong on 09-02-2024 Vitamin D 25-Hydroxy 29.8 ng/mL Low 30-[address] [facility] Comment on above: Vitamin D StatusDefi ciency: <20 ng/mL (50nmol/L)Insufficiency: 20-30 ng/mL (50-75 nmol/L)Sufficiency: 30-100 ng/mL (75-250 nmol/L)Toxicity: >100 ng/mL (>250 nmol/L) Vitamin D,25 Hydroxyon 09-02 Vitamin D 25-OH 29.8 ng/mL Low 30-100 [facility] Comment on above: Result Comment: Antonieta min D Status Deficiency: <20 ng/mL (50nmol/L) Insufficiency: 20-30 ng/mL (50-75 nmol/L) Sufficiency: 30-100 ng/mL (75-250 nmol/L) Toxicity: >100 ng/mL (>250 nmol/L) Performed By: #### L 500.4050, L100.0100, L500.4100, L501.9520, L506.1001 #### [facility] [address] [place], [address] White blood cell (WBC) count Ordered By: Padmini Leong on 09-02-2024 WBC (Bld) [#/Vol] 7.2 10*3/uL 4.4-11.0 [facility] 12 Lead EKG performed by [facility] on 06-28-2024 12 Lead EKG performed by [facility] [address] [place] [address] 12 Lead EKG performed by [facility] 06/28/24 1039 MR#: [id number] Acct: [id number] Name: RADHA HU Rep #: [id number] : 1950 73 From: Shantal Nowak Attending Dr: ASH Chong Status: DEP AMB Ordering Dr: Shantal Haines Date: 06/18 06/11 Location: [facility] Sex: F C Admitted: [facility] [facility]/12 Lead EKG performed by [facility] ECG Report Interpretation ------Sinus Rhythm - occasional ectopic ventricular beat Low voltage in precordial leads. ABNORMAL Electronically signed on 06/29/2024 at 09:39 by Keith Roman Software Version [id number] 06/29/24 0944 Date Shantal ALEMAN CC: Dr. Padmini Leong MD Date Dictated: 06/28/241038 Date Transcribed: 06/28/241038 Fluorescent Lighting Model Maker: THO Signed Normal [facility] Cardiology Visit Reporton Cardiology Visit Report [facility] [address] [place] [address] OFFICE VISIT Date of Service: 06/28/24 MR#: [id number] Acct: [id number] Name: RADHA HU Rep #: [id number] : 1950 Provider: ASH Wall Age/Sex: 73/F Location: [facility] Status: Signed HPI HPI History of Present Illness Details: This is a 73-year-old lady who presents to the office today for cardiovascular follow-up visit. She has a history of coronary artery disease, hypertension, hyperlipidemia status post PCI remotely who underwent a pharmacologic stress test in January 2020 demonstrating apical ischemia. She subsequently underwent a cardiac catheterization with demonstrated preserved left ventricular systolic function, left main coronary artery which was noted to be normal, left circumflex artery with 20 to 30% discrete proximal plaque, second obtuse marginal branch with ostial 50% stenosis, tiny third obtuse marginal branch posterior descending artery and obtuse marginal. The left anterior descending artery had mild calcification in the proximal LAD with an eccentric 50% stenosis and the vessel continued with no high-grade stenosis. The right coronary artery was previously stented and had mild diffuse 40% in-stent stenosis. Medical therapy was recommended. She had called our office a few weeks ago with concerns over fatigue. She was recovering from influenza. She did receive 2 rounds of antibiotics. She did have labs these were all normal. EKG today demonstrates sinus rhythm with occasional PVC with a heart rate of 78. She is having discomfort in her breast. It is substernal. She notes that is is more so at rest. She notes it lasts less than a minute. It is just a discomfort. She does not have any worsening SOB. She is fatigued. She sleeps 3-4 hours a night. She then needs to get up and sleep in a chair. She does not feel that this similar to her reflux. BP is elevated today, she has not taken her medications yet. STOP-BANG Assessment: 1. Do you snore? y 2. Are you frequently tired during the day? y 3. Have you been observed gasping or choking while asleep? n 4. Do you have high blood pressure? y 5. BMI - greater than 35kg/m2? y 6. Age - over 50 years old? n 7. Neck Circumference - greater than 37 cm for females or 40 cm for males? y 8. Gender - male? n Total STOP-BANG score = 5 which indicates positive risk for obstructive sleep apnea (yes to 3 or more questions = high risk of sleep apnea). Intake Vital Signs 03/01/24 13:06 06/28/24 10:43 06/28/24 10:48 Height 5 ft 2 in 5 ft 2 in 5 ft 2 in Weight: 268 lb BMI 49.0 BP 151/93 H 144/80 H Blood Pressure Location Lt brachial Position Sitting Respiration 20 H Pulse 70 Pulse Source Monitor Pulse Oximetry (%) 94 Intake Visit Reasons: SEE NOTES Slabber Light Required: No Is patient in pain?: No Allergies latex Adverse Reaction (Severe, Verified 03/01/24 13:08) Rash atorvastatin (From Lipitor) Adverse Reaction (Intermediate, Verified 03/01/24 13:08) myalgias Medications ???Medication ???Instructions ???Recorded ???Confirmed ???Type alprazolam 0.25 mg tablet (Xanax) 0.25 mg PO TID PRN anxiety 06/28/24 History aspirin 81 mg tablet,delayed 81 mg PO DAILY 02/13/23 06/28/24 H istory release (Adult Low Dose Aspirin) escitalopram oxalate 10 mg tablet 10 mg PO DAILY 02/13/23 06/28/24 History famotidine 40 mg tablet 40 mg PO DAILY 02/13/23 06/28/24 H istory levothyroxine 75 mcg capsule 75 mcg PO DAILY 02/13/23 06/28/24 History ramipril 2.5 mg capsule 2.5 mg PO DAILY 02/13/23 06/28/24 History rosuvastatin 10 mg tablet 10 mg PO DAILY 02/13/23 06/28/24 H istory Ejection fraction %: 55 Have you fallen in the past year?: No PFSH Medical History Cervical disc disorder DJD (degenerative joint disease) Steatosis of liver Hiatal hernia Barretts esophagus Chronic GERD Coronary arteriosclerosis in viejas artery Essential (primary) hypertension Carpal tunnel syndrome Depressive disorder Mixed hyperlipidemia Vitamin D deficiency Hypothyroidism Coronary artery disease Surgical History History of PTCA H/O tubal ligation History of cholecystectomy H/O heart artery stent Family History (Reviewed 03/01/24 @ 13:07 by Ariella Conway BILLIARD PARLOR MANAGER, BILL[employer]ARD [employer] MANAGER-C) Sister Breast cancer Social History (Reviewed 03/01/24 @ 13:07 by Ariella Conway BILLIARD PARLOR MANAGER, BILLIARD [employer] MANAGER-C) Smoking Status: Never smoker ROS Const Const: Positive for fatigue and difficulty sleeping; Negative for headache(s) Eyes Eyes: Negative for blurry vision or change in vision ENT ENT: Negative for headache(s), dizziness, hearing loss, Nosebleed/epista (more content not included)... Normal [facility] Absolute lymphocyte countOrd ered By: Teja Carvajal on 06-27-2024 Lymphocytes Auto (Unsp spec) [#/Vol] 2.22 10*3/uL 0.83-4.51 [facility] Absolute neutrophil countOrd ered By: Teja Carvajal on 06-27-2024 Neutrophils (Bld) [#/Vol] 4.3 10*3/uL 2.0-7.7 [facility] Automated lymphocyte count a s percentage of total leukocytesOrdered By: Teja Carvajal on 06-27-2024 Lymphocytes/100 WBC Auto (Unsp spec) 29.7 % 19-41 [facility] BNP (brain natriuretic pepti de measurement)Ordered By: Teja Carvajal on 06-27-2024 Natriuretic peptide B (Bld) [Mass/Vol] 32.8 pg/mL 0-100 [facility] BNP,B-Type NATRIURETIC PEPTI Vee 06-27-2024 Natriuretic peptide B (Bld) [Mass/Vol] 32.8 pg/mL Normal 0-100 [facility] Comment on above: Performed By: #### L 500.2500, L100.0100, L501.9520, L503.6620 ####[facility] [address] [place], [address] Basic Metabolic Profile (BMP )on 06-27-2024 BUN/CRE 24.1 RATIO High 10-20 [facility] Comment on above: Performed By: #### L 500.2500, L100.0100, L501.9520, L503.6620 ####[facility] [address] [place], [address] CA,Total 9.1 mg/dL Normal 8.5-10.1 [facility] Comment on above: Performed By: #### L 500.2500, L100.0100, L501.9520, L503.6620 ####[facility] [address] [place], [address] Chloride [Moles/Vol] 106 mmol/L Normal 98-[address] [facility] Comment on above: Performed By: #### L 500.2500, L100.0100, L501.9520, L503.6620 ####[facility] [address] [place], [address] CO2 [Moles/Vol] 27.0 mmol/L Normal 21.0-32.0 [facility] Comment on above: Performed By: #### L 500.2500, L100.0100, L501.9520, L503.6620 ####[facility] [address] [place], [address] Creatinine [Mass/Vol] 0.79 mg/dL Normal 0.55-1.02 [facility] Comment on above: Result Comment: The validity of the calculated GFR GFRAA in patients over 70 years has not been determined. Clinical correlation is essential. Performed By: #### L 500.2500, L100.0100, L501.9520, L503.6620 ####[facility] [address] [place], [address] EST GFR - AA 91 mL/min Normal >60 [facility] Comment on above: Result Comment: Afri can [place] GFR Calc Performed By: #### L 500.2500, L100.0100, L501.9520, L503.6620 ####[facility] [address] [place], [address] GAP 6 Normal 5-15 [facility] Comment on above: Performed By: #### L 500.2500, L100.0100, L501.9520, L503.6620 ####[facility] [address] [place], [address] GFR/1.73 sq M.predicted among non-blacks MDRD (S/P/Bld) [Vol rate/Area] 75 mL/min/{1.73_m2} Normal >60 [facility] Comment on above: Result Comment: Non- GFR Calc Performed By: #### L 500.2500, L100.0100, L501.9520, L503.6620 ####[facility] [address] [place], [address] Glucose [Mass/Vol] 88 mg/dL Normal 74-106 [facility] Comment on above: Performed By: #### L 500.2500, L100.0100, L501.9520, L503.6620 ####[facility] [address] [place], [address] Potassium [Moles/Vol] 4.4 mmol/L Normal 3.5-5.1 [facility] Comment on above: Performed By: #### L 500.2500, L100.0100, L501.9520, L503.6620 ####[facility] [address] [place], [address] Sodium [Moles/Vol] 139 mmol/L Normal 136-145 [facility] Comment on above: Performed By: #### L 500.2500, L100.0100, L501.9520, L503.6620 ####[facility] [address] [place], [address] Urea nitrogen [Mass/Vol] 19 mg/dL High 7-18 [facility] Comment on above: Performed By: #### L 500.2500, L100.0100, L501.9520, L503.6620 ####[facility] [address] [place], [address] Basophil percentageOrdered B y: Teja Carvajal on 06-27-2024 Basophils/100 WBC (Bld) 0.7 % 0-1 [facility] Blood urea nitrogen (BUN)/cr eatinine ratioOrdered By: Teja Carvajal on 06-27-2024 Urea nitrogen/Creatinine [Mass ratio] 24.1 mg/mg High 10- [facility] CBC W/Diff, Automatedon 06-18-2024 Absolute Lymph 2.22 X10 3/uL Normal 0.83-4.51 [facility] Comment on above: Performed By: #### L 500.2500, L100.0100, L501.9520, L503.6620 ####[facility] [address] [place], [address] Absolute Neut 4.3 X10 3/uL Normal 2.0-7.7 [facility] Comment on above: Performed By: #### L 500.2500, L100.0100, L501.9520, L503.6620 ####[facility] [address] [place], [address] Basophils/100 WBC (Bld) 0.7 % Normal 0-1 [facility] Comment on above: Performed By: #### L 500.2500, L100.0100, L501.9520, L503.6620 ####[facility] [address] [place], [address] Eosinophils/100 WBC (Bld) 2.8 % Normal 0-5 [facility] Comment on above: Performed By: #### L 500.2500, L100.0100, L501.9520, L503.6620 ####[facility] [address] [place], [address] Erythrocyte distribution width (RBC) [Ratio] 13.4 % Normal 11.6-14.6 [facility] Comment on above: Performed By: #### L 500.2500, L100.0100, L501.9520, L503.6620 ####[facility] [address] [place], [address] Hematocrit (Bld) [Volume fraction] 40.9 % Normal 37-47 [facility] Comment on above: Performed By: #### L 500.2500, L100.0100, L501.9520, L503.6620 ####[facility] [address] [place], [address] Hemoglobin (Bld) [Mass/Vol] 13.0 g/dL Normal 12.0-15.0 [facility] Comment on above: Performed By: #### L 500.2500, L100.0100, L501.9520, L503.6620 ####[facility] [address] [place], [address] IG% 0.400 Normal 0.0-0.9 [facility] Comment on above: Result Comment: IG% - Immature Granulocytes (promyelocytes, myelocytes and metamyelocytes) > 1% indicates that a LEFT SHIFT is Present. Performed By: #### L 500.2500, L100.0100, L501.9520, L503.6620 ####[facility] [address] [place], [address] Lymphocytes/100 WBC (Bld) 29.7 % Normal 19-41 [facility] Comment on above: Performed By: #### L 500.2500, L100.0100, L501.9520, L503.6620 ####[facility] [address] [place], [address] MCH (RBC) [Entitic mass] 29.6 pg Normal 27.0-32.0 [facility] Comment on above: Performed By: #### L 500.2500, L100.0100, L501.9520, L503.6620 ####[facility] [address] [place], [address] MCHC (RBC) [Mass/Vol] 31.8 g/dL Low 32-36 [facility] Comment on above: Performed By: #### L 500.2500, L100.0100, L501.9520, L503.6620 ####[facility] [address] [place], [address] MCV (RBC) [Entitic vol] 93.2 fL Normal 81-99 [facility] Comment on above: Performed By: #### L 500.2500, L100.0100, L501.9520, L503.6620 ####[facility] [address] [place], [address] Monocytes/100 WBC (Bld) 9.4 % Normal 0-10 [facility] Comment on above: Performed By: #### L 500.2500, L100.0100, L501.9520, L503.6620 ####[facility] [address] [place], [address] Neutrophils/100 WBC (Bld) 57.0 % Normal 47-70 [facility] Comment on above: Performed By: #### L 500.2500, L100.0100, L501.9520, L503.6620 ####[facility] [address] [place], [address] Nucleated RBC (Bld) [#/Vol] 0 10*3/uL Normal 0-5 [facility] Comment on above: Performed By: #### L 500.2500, L100.0100, L501.9520, L503.6620 ####[facility] [address] [place], [address] Platelet mean volume (Bld) [Entitic vol] 9.2 fL Normal 6.2-12.0 [facility] Comment on above: Performed By: #### L 500.2500, L100.0100, L501.9520, L503.6620 ####[facility] [address] [place], [address] Platelets (Bld) [#/Vol] 303 10*3/uL Normal 150-450 [facility] Comment on above: Performed By: #### L 500.2500, L100.0100, L501.9520, L503.6620 ####[facility] [address] [place], [address] RBC (Bld) [#/Vol] 4.39 10*6/uL Normal 4.2-5.4 [facility] Comment on above: Performed By: #### L 500.2500, L100.0100, L501.9520, L503.6620 ####[facility] [address] [place], [address] RDW SD 46.0 fl High 35.1-43.9 [facility] Comment on above: Performed By: #### L 500.2500, L100.0100, L501.9520, L503.6620 ####[facility] [address] [place], [address] WBC (Bld) [#/Vol] 7.5 10*3/uL Normal 4.4-11.0 [facility] Comment on above: Performed By: #### L 500.2500, L100.0100, L501.9520, L503.6620 ####[facility] [address] [place], [address] Carbon dioxide measurementOr dered By: Teja Carvajal on 06-27-2024 CO2 [Moles/Vol] 27.0 mmol/L 21.0-32.0 [facility] Chloride measurementOrdered By: Teja Carvajal on 06-27-2024 Chloride [Moles/Vol] 106 mmol/L 98-[address] [facility] Eosinophil percentageOrdered By: Teja Carvajal on 06-27-2024 Eosinophils/100 WBC (Bld) 2.8 % 0-5 [facility] Erythrocyte distribution wid th (RBC) [Ratio]Ordered By: Teja Carvajal on 06-27-2024 Erythrocyte distribution width (RBC) [Entitic vol] 46.0 fL High 35.1-43.9 [facility] Erythrocyte distribution wid th ratioOrdered By: Teja Carvajal on 06-27-2024 Erythrocyte distribution width (RBC) [Ratio] 13.4 % 11.6-14.6 [facility] Erythrocyte distribution wid th standard deviationOrdered By: Teja Carvajal on 06-27-2024 Erythrocyte distribution width (RBC) [Ratio] 46.0 fl High 35.1-43.9 [facility] Estimated glomerular filtrat ion rate (GFR) AmericanOrdered By: Teja Carvajal on 06-27-2024 Estimated GFR (MDRD) Amer 91 mL/min >60 [facility] Comment on above: GFR Calc Glomerular filtration rate ( GFR) estimationOrdered By: Teja Carvajal on 06-27-2024 Estimated GFR (MDRD) Non-Af Amer 75 mL/min >60 [facility] Comment on above: Non- GFR Calc GFR/1.73 sq M.predicted among non-blacks MDRD (S/P/Bld) [Vol rate/Area] 75 mL/min/{1.73_m2} >60 [facility] Comment on above: Non- GFR Calc Glucose measurementOrdered B y: Teja Carvajal on 06-27-2024 Glucose [Mass/Vol] 88 mg/dL 74-106 [facility] Hematocrit Auto (Bld) [Volum e fraction]Ordered By: Teja Carvajal on 06-27-2024 Hematocrit (Bld) [Volume fraction] 40.9 % 37-47 [facility] Hemoglobin measurementOrdere d By: Teja Carvajal on 06-27-2024 Hemoglobin (Bld) [Mass/Vol] 13.0 g/dL 12.0-15.0 [facility] Immature granulocytes/100 WB C Auto (Bld)Ordered By: Teja Carvajal on 06-27-2024 Immature granulocytes/100 WBC (Bld) 0.400 % 0.0-0.9 [facility] Comment on above: IG% - Immature Granu locytes (promyelocytes, myelocytes and metamyelocytes) > 1% indicates that a LEFT SHIFT is Present. Lymphocytes Auto (Unsp spec) [#/Vol]Ordered By: Teja Carvajal on 06-27-2024 Lymphocytes (Bld) [#/Vol] 2.22 10*3/uL 0.83-4.51 [facility] Lymphocytes/100 WBC Auto (Un sp spec)Ordered By: Teja Carvajal on 06-27-2024 Lymphocytes/100 WBC (Bld) 29.7 % 19-41 [facility] MCV (mean corpuscular volume ) determinationOrdered By: Teja Carvajal on 06-27-2024 MCV (RBC) [Entitic vol] 93.2 fL 81-99 [facility] Mean corpuscular hemoglobin (MCH) determinationOrdered By: Teja Carvajal on 06-27-2024 MCH (RBC) [Entitic mass] 29.6 pg 27.0-32.0 [facility] Mean corpuscular hemoglobin concentration (MCHC) determinationOrdered By: Teja Carvajal on 06-27-2024 MCHC (RBC) [Mass/Vol] 31.8 g/dL Low 32-36 [facility] Mean platelet volume determi nationOrdered By: Teja Carvajal on 06-27-2024 Platelet mean volume (Bld) [Entitic vol] 9.2 fL 6.2-12.0 [facility] Monocyte percentageOrdered B y: Teja Carvajal on 06-27-2024 Monocytes/100 WBC (Bld) 9.4 % 0-10 [facility] Neutrophil percentageOrdered By: Teja Carvajal on 06-27-2024 Neutrophils/100 WBC (Bld) 57.0 % 47-70 [facility] Nucleated red blood cell per centageOrdered By: Teja Carvajal on 06-27-2024 Nucleated RBC/100 WBC (Bld) [Ratio] 0 % 0-5 [facility] Platelet countOrdered By: Codie Carvajal on 06-27-2024 Platelets (Bld) [#/Vol] 303 10*3/uL 150-450 [facility] Potassium measurementOrdered By: Teja Carvajal on 06-27-2024 Potassium [Moles/Vol] 4.4 mmol/L 3.5-5.1 [facility] RBC Auto (Bld) [#/Vol]Ordere d By: Teja Carvajal on 06-27-2024 RBC (Bld) [#/Vol] 4.39 10*6/uL 4.2-5.4 [facility] Serum anion gap measurementO rdered By: Teja Carvajal on 06-27-2024 Anion gap [Moles/Vol] 6 mmol/L 5-15 [facility] Serum or plasma calcium amanda urement (mass/volume)Ordered By: Teja Carvajal on 06-27-2024 Calcium [Mass/Vol] 9.1 mg/dL 8.5-10.1 [facility] Serum or plasma creatinine m easurement (mass/volume)Ordered By: Teja Carvajal on 06-27-2024 Creatinine [Mass/Vol] 0.79 mg/dL 0.55-1.02 [facility] Comment on above: The validity of the calculated GFR & GFRAA in patients over 70 years has not been determined. Clinical correlation is essential. Serum or plasma thyroid stim ulating hormone (TSH) measurement (units/volume)Ordered By: Teja Carvajal on 06-27-2024 TSH Qn 1.640 uIU/mL 0.358-3.740 [facility] Serum or plasma urea nitroge n measurement (mass/volume)Ordered By: Teja Carvajal on 06-27-2024 Urea nitrogen [Mass/Vol] 19 mg/dL High 7-18 [facility] Sodium levelOrdered By: Teja Carvajal on 06-27-2024 Sodium [Moles/Vol] 139 mmol/L 136-145 [facility] TSH QnOrdered By: Teja Carvajal on 06-27-2024 Thyroid Stimulating Hormone (TSH) 1.640 uIU/mL 0.358-3.740 [facility] Thyroid Stim Hormone (TSH)on 06-27-2024 TSH 1.640 uIU/mL Normal 0.358-3.740 [facility] Comment on above: Performed By: #### L 500.2500, L100.0100, L501.9520, L503.6620 ####[facility] [address] [place], [place], [id number] White blood cell (WBC) count Ordered By: Teja Carvajal on 06-27-2024 WBC (Bld) [#/Vol] 7.5 10*3/uL 4.4-11.0 [facility] Inital Evaluation (1) - PTon 03-20-2024 Inital Evaluation (1) - PT [facility] Physical Therapy [facility] [address] [place] [address] / REHABILITATION SERVICES INITIAL EVALUATION MR#: [id number] Acct: [id number] Name: RADHA HU Rep #: [id number] : 1950 73 From: Nichole Acevedo PT, Cert. MDT Referring Dr.: MARIAL FERNANDEZ Status: REG RCR Insurance: [employer] [facility] 03/18/18 SELF PAY INSURANCE Patient's Visit Information Visit Information Visit Information: RADHA HU is a 73 year old F referred to Physical Therapy by MARIA L FERNANDEZ with a diagnosis of C67 RADICULOPATHY. Date of Evaluation: 03/20/24 Physical Therapist: Nichole Acevedo, PT, Cert MDT Visit Plan Frequency: 2x /Week Duration: 4-6 Weeks Plan: Scapular Strengthening and B Pec/UT/Levator/Scale ne Stretching to help reduce stress on Cervical Spine with Daily Activities. US at 1.3 W/CM2 100% to B Neck Musculature in Sitting. STM to Gab Posterior Cervical Musculature. Moist Heat to Neck as needed. Instruction in Proper Posture Control, Ergonomics with ADL's and Appropriate Activity Modifications. Gab UE ROM/Stretching and Strengthening. HEP Instructions Subjective Subjective: Work/Leisure: RETIRED. BABYSITTING FOR 1 YEAR YEAR OLD GREAT GRAND-DAUGHTER 8 HOURS A DAY 5 DAYS A WEEK. Present symptoms: DIZZINESS. GAB NECK PAIN R>L. R HEAD, R ARM, R FOREARM AND R HAND. TINGLING INTO R DIGITS 3 AND 4. POPPING AND CRACKING IN NECK. Present since: CHRONIC - AT LEAST 2-3 YEARS. Pain Scale: Worst - 5/10 Least - 1/10 Currently: 3/10 Commenced as a result of: NO APPARENT REASON Symptoms at onset: R NECK/SHLD Worse: PICKING UP THE BABY/2 YEAR OLD, MOVING STUFF/LIKE FURNITURE, THROWING STUFF/LIKE PLAYING CORN HOLE. Better: LYING DOWN, [place] Disturbed sleep: YES - SOMETIMES Previous history/Previous treatment: NO NECK SURGERY. NO INJECTIONS. NO CHIROPRACTIC. NO PT. R CTR ABOUT 2 YEARS AGO. This episode: STEROID X 7 DAYS AND MELOXICAM. Dizziness: YES - STATES DR. FERNANDEZ IS AWARE OF IT AND IT IS BETTER SINCE TAKING THE STEROID. Tinnitus: YES - CHRONIC Nausea: NO Shortness of Breath: SOMETIMES - CHRONIC Difficulty Swallowing: A LITTLE - CHRONIC - A COUPLE OF YEARS. Gait: NO RECENT FALLS. DENIES USE OF AD'S. Accidents: NO Unexplained weight loss: NO Imagin02/11/24 NECK MRI WC: FINDINGS: Normal foramen magnum and brainstem-cervical cord junction. Normal craniovertebral junction. Normal anterior atlantoaxial articulation. Normal odontoid process. There is reversal of the normal cervical lordosis. Disc desiccation is present at all levels. C2-3: Normal endplates. Normal disc height and morphology. Normal central canal and intervertebral neural foramina. C3-4: Normal endplates. Mild disc space narrowing with diffuse disc bulging as well as a broad-based midline to right paracentral disc protrusion compressing the anterior aspect of the cord and contributing to mild to moderate central canal stenosis. Severe right foraminal stenosis with nerve root compression. Moderate left foraminal stenosis with nerve root compression due to uncovertebral and significant facet joint hypertrophy. Moderate right uncovertebral hypertrophy. C4-5: Diffuse disc desiccation with mild disc space narrowing and diffuse disc bulging. Superimposed shallow left paracentral disc protrusion compresses the left anterior aspect of the cord. The diffuse disc bulge causes compression across the remaining aspect of the cord and contributes to mild to moderate central canal stenosis mild right foraminal stenosis. Moderate left foraminal stenosis with nerve root compression due to combined uncovertebral facet joint hypertrophy. C5-6: Diffuse disc desiccation with mild to moderate disc space narrowing and diffuse disc bulge with compression on anterior aspect of the cord. Superimposed broad-based left paracentral disc protrusion is also present. Mild to moderate central canal stenosis. Moderate left and severe right foraminal stenosis with nerve root compression due to uncovertebral and facet joint hypertrophy. Severe right uncovertebral hypertrophy. C6-7: Moderate disc space narrowing with a diffuse disc bulge/spur complex with mild compression anterior aspect of the cord and avfb-ur-lzrnhdqz central canal stenosis. Moderate to severe bilateral foraminal stenosis with nerve root compression, due to uncovertebral hypertrophy. C7-T1: Normal endplates. Mild disc space narrowing and slight annular bulging. Anterolisthesis of C7 on T1 of less than 2 mm. Normal central canal and intervertebral neural foramina. Normal cervical cord. There is no demonstrated cervical cord syrinx cavity. Normal visualized soft tissue structures. No aggressive or suspicious enhancing bony or soft tissue abnormality is present. There are no lesions of the spinal cord or intrathecal sac. No n (more content not included)... Normal [facility] Carotid Duplex Ultrasoundon 03-14-2024 Carotid Duplex Ultrasound [facility] [address] [place] [address] Carotid Duplex Ultrasound 03/14/24 1259 MR#: [id number] Acct: [id number] Name: RADHA HU Rep #: [id number] : 1950 73 From: Migue Crocker MD Attending Dr: Ariella Conway, BILLIARD PARLOR MANAGER-C Status: REG C Ordering Dr: Ariella Conway BILLIARD PARLOR MANAGER BILLIARD PARLOR MANAGER-C Date: 03/14/24 Location: [facility] Sex: F C Admitted: Reason For Study: Dizziness Rt. Velocities/BP Lt. Velocities/BP Prox CCA 60.7/9.7 cm/sec. Prox CCA 73.6/9.7 cm/sec. Mid CCA 49.4/9.7 cm/sec. Mid CCA 77.8/12.7 cm/sec. Dist CCA 54.1/12.6 cm/sec. Dist CCA 51.9/11.4 cm/sec. Prox ICA 57.9/11.6 cm/sec. Prox ICA 65.4/16.3 cm/sec. Mid ICA 62.6/19.2 cm/sec. Mid ICA 70.4/22.5 cm/sec. Dist ICA 46.6/10.7 cm/sec. Dist ICA 61.8/13.9 cm/sec. Rt. ICA/CCA = 1.27. Lt. ICA/CCA = 0.90. Prox ECA 171.8/13.7 cm/sec. Prox ECA 88.8/6.5 cm/sec. Rt. Vert. 39/5 cm/sec. Lt. Vert. 47/9 cm/sec. Right Extracranial There is intimal thickening but no significant atherosclerotic plaque noted in the right common carotid artery. There is heterogeneous, irregular atherosclerotic plaque noted in the right internal carotid artery. There is heterogeneous, irregular atherosclerotic plaque noted in the right external carotid artery. Antegrade flow is noted in the right vertebral artery. Left Extracranial There is heterogeneous, irregular atherosclerotic plaque noted in the left common carotid artery. There is heterogeneous, irregular atherosclerotic plaque noted in the left internal carotid artery. There is heterogeneous, irregular atherosclerotic plaque noted in the left external carotid artery. Antegrade flow is noted in the left vertebral artery. Procedure Carotid Duplex 43749. This is a Carotid Duplex examination using B-mode, color flow and specral Doppler. Exam performed in department. VL/Carotid Duplex Ultrasound Interpretation Summary Mild (<50%) stenosis right extracranial internal carotid. Mild (<50%) stenosis left extracranial internal carotid. Patent and antegrade vertebrals bilaterally. Ordering Physician: Ariella Conway Referring Physician: Padmini Leong Performed By: Elizabeth Denton RVT 03/14/24 1633 Date Migue Crocker MD CC: RENNY Conway; Dr. Padmini Leong MD Date Dictated: 03/14/24 1259 Date Transcribed: 03/14/24 1633 Fluorescent Lighting Model Maker: Signed Normal [facility] Comprehensive Metabolic Prof ilon 03-07-2024 Albumin [Mass/Vol] 3.4 g/dL Normal 3.2-5.0 [facility] Comment on above: Performed By: #### L 500.4100, L500.4050, L506.1000 ####[facility] [address] [place], [address] Albumin/Globulin [Mass ratio] 0.9 {ratio} Normal 0.9-2.4 [facility] Comment on above: Performed By: #### L 500.4100, L500.4050, L506.1000 ####[facility] [address] [place], [address] ALK P 85 U/L Normal 45-117 [facility] Comment on above: Performed By: #### L 500.4100, L500.4050, L506.1000 ####[facility] [address] [place], [address] ALT [Catalytic activity/Vol] 15 U/L Normal 13-56 [facility] Comment on above: Performed By: #### L 500.4100, L500.4050, L506.1000 ####[facility] [address] [place], [address] AST [Catalytic activity/Vol] 14 U/L Low 15-37 [facility] Comment on above: Performed By: #### L 500.4100, L500.4050, L506.1000 ####[facility] [address] [place], [address] Bilirubin [Mass/Vol] 0.40 mg/dL Normal 0.20-1.[address] [facility] Comment on above: Result Comment: For patients on eltrombopag therapy, use of Dimension [place] TBIL is not recommended. Performed By: #### L 500.4100, L500.4050, L506.1000 ####[facility] [address] [place], [address] BUN/CRE 22.2 RATIO High 10-20 [facility] Comment on above: Performed By: #### L 500.4100, L500.4050, L506.1000 ####[facility] [address] [place], [address] CA,Total 8.8 mg/dL Normal 8.5-10.1 [facility] Comment on above: Performed By: #### L 500.4100, L500.4050, L506.1000 ####[facility] [address] [place], [address] Chloride [Moles/Vol] 108 mmol/L High 98-[address] [facility] Comment on above: Performed By: #### L 500.4100, L500.4050, L506.1000 ####[facility] [address] [place], [address] CO2 [Moles/Vol] 30.0 mmol/L Normal 21.0-32.0 [facility] Comment on above: Performed By: #### L 500.4100, L500.4050, L506.1000 ####[facility] [address] [place], [address] Creatinine [Mass/Vol] 0.81 mg/dL Normal 0.55-1.02 [facility] Comment on above: Result Comment: The validity of the calculated GFR GFRAA in patients over 70 years has not been determined. Clinical correlation is essential. Performed By: #### L 500.4100, L500.4050, L506.1000 ####[facility] [address] [place], [address] EST GFR - AA 89 mL/min Normal >60 [facility] Comment on above: Result Comment: Afri can [place] GFR Calc Performed By: #### L 500.4100, L500.4050, L506.1000 ####[facility] [address] [place], [address] GAP 5 Normal 5-15 [facility] Comment on above: Performed By: #### L 500.4100, L500.4050, L506.1000 ####[facility] [address] [place], [address] GFR/1.73 sq M.predicted among non-blacks MDRD (S/P/Bld) [Vol rate/Area] 73 mL/min/{1.73_m2} Normal >60 [facility] Comment on above: Result Comment: Non- GFR Calc Performed By: #### L 500.4100, L500.4050, L506.1000 ####[facility] [address] [place], [address] Globulin (S) [Mass/Vol] 3.8 g/dL Normal 2.2-4.2 [facility] Comment on above: Performed By: #### L 500.4100, L500.4050, L506.1000 ####[facility] [address] [place], [address] Glucose [Mass/Vol] 83 mg/dL Normal 74-106 [facility] Comment on above: Performed By: #### L 500.4100, L500.4050, L506.1000 ####[facility] [address] [place], [address] Potassium [Moles/Vol] 4.2 mmol/L Normal 3.5-5.1 [facility] Comment on above: Performed By: #### L 500.4100, L500.4050, L506.1000 ####[facility] [address] [place], [address] Sodium [Moles/Vol] 142 mmol/L Normal 136-145 [facility] Comment on above: Performed By: #### L 500.4100, L500.4050, L506.1000 ####[facility] [address] [place], [address] T PROT 7.2 g/dL Normal 6.4-8.2 [facility] Comment on above: Performed By: #### L 500.4100, L500.4050, L506.1000 ####[facility] [address] [place], [address] Urea nitrogen [Mass/Vol] 18 mg/dL Normal 7-18 [facility] Comment on above: Performed By: #### L 500.4100, L500.4050, L506.1000 ####[facility] [address] [place], [address] Lipid Profileon 03-07-2024 Cholesterol [Mass/Vol] 169 mg/dL Normal 200 [facility] Comment on above: Result Comment: <200 mg/dL Desirable 200-240 mg/dL Borderline >240 mg/dL High Risk Performed By: #### L 500.4100, L500.4050, L506.1000 ####[facility] [address] [place], [address] Cholesterol in HDL [Mass/Vol] 71 mg/dL Normal [facility] Comment on above: Result Comment: The drugs N-Acetylcysteine and Metamizole may falsely depress this assay. Reference Range HDL <40 mg/dL Low HDL Cholesterol HDL >or= 60 mg/dL High HDL Cholesterol Performed By: #### L 500.4100, L500.4050, L506.1000 ####[facility] [address] [place], [address] Cholesterol in LDL [Mass/Vol] 77 mg/dL Normal 0-130 [facility] Comment on above: Performed By: #### L 500.4100, L500.4050, L506.1000 ####[facility] [address] [place], [address] Cholesterol in VLDL [Mass/Vol] 21 mg/dL Normal 5-40 [facility] Comment on above: Performed By: #### L 500.4100, L500.4050, L506.1000 ####[facility] [address] [place], [address] Triglyceride [Mass/Vol] 107 mg/dL Normal [facility] Comment on above: Result Comment: The drugs N-Acetylcysteine and Metamizole may falsely depress this assay. Serum Triglycerides Reference Interval Normal <150 mg/dL Borderline high 150 - 199 mg/dL High 200 - 499 mg/dL Very High > or = 500 mg/dL Performed By: #### L 500.4100, L500.4050, L506.1000 ####[facility] [address] [place], [address] Vitamin D,25 Hydroxyon 03-07 Vitamin D 25-OH 26.0 ng/mL Normal [facility] Comment on above: Result Comment: Antonieta min D 25(OH) Status Range Deficiency <20 ng/mL (50nmol/L) Insufficiency 20 - 30 ng/mL (50 - 75 nmol/L) Sufficiency 30 - 100 ng/mL (75 - 250 nmol/L) Toxicity >100 ng/mL (>250 nmol/L) Performed By: #### L 500.4100, L500.4050, L506.1000 ####[facility] [address] [place], [address] Cardiology Visit Reporton Cardiology Visit Report [facility] [address] [place], [place] [address] OFFICE VISIT Date of Service: 03/01/24 MR#: [id number] Acct: [id number] Name: RADHA HU Rep #: [id number] : 1950 Provider: RENNY crawford Age/Sex: 73/F Location: [facility] Status: Signed [facility] History of Present Illness Details: This is a 73-year-old lady who presents to the office today for cardiovascular follow-up visit. She has a history of coronary artery disease, hypertension, hyperlipidemia status post PCI remotely who underwent a pharmacologic stress test in January 2020 demonstrating apical ischemia. She subsequently underwent a cardiac catheterization with demonstrated preserved left ventricular systolic function, left main coronary artery which was noted to be normal, left circumflex artery with 20 to 30% discrete proximal plaque, second obtuse marginal branch with ostial 50% stenosis, tiny third obtuse marginal branch posterior descending artery and obtuse marginal. The left anterior descending artery had mild calcification in the proximal LAD with an eccentric 50% stenosis and the vessel continued with no high-grade stenosis. The right coronary artery was previously stented and had mild diffuse 40% in-stent stenosis. Medical therapy was recommended. From a cardiac standpoint, the patient is doing well. She denies any palpitations. She does acknowledge occasional chest pain-this is located midsternal. She states this relieved with acid- baseball glove stuffer. She does acknowledge SOB with exertion-she attributes this to extra weight. She states this is nothing new or worsening. She denies Orthopnea, and PND. She does not have bleeding issues; no blood in urine, stool or nosebleeds. She denies any decrease in energy level, myalgias, or claudication. She does not have edema, or sudden weight gain. She does acknowledge occasional dizziness-she attributes this to vertigo. She denies lightheadedness, syncopal or near syncopal episodes, and headaches. Intake Vital Signs 03/04/23 12:55 08/04/23 18:30 03/01/24 13:03 03/01/24 13:06 Height 5 ft 2 in 5 ft 2 in 5 ft 2 in 5 ft 2 in Weight: 262 lb BMI 47.9 BP 128/74 H Blood Pressure Location Lt brachial Position Sitting Respiration 20 H Pulse 62 Pulse Source Monitor Pulse Oximetry (%) 95 Intake Visit Reasons: 1 y fu Slabber Light Required: No Is patient in pain?: No Allergies latex Adverse Reaction (Severe, Verified 03/01/24 13:08) Rash atorvastatin (From Lipitor) Adverse Reaction (Intermediate, Verified 03/01/24 13:08) myalgias Medications ???Medication ???Instructions ???Recorded ???Confirmed ???Type albuterol sulfate 2.5 mg/0.5 mL 10 mg inhalation Q4H PRN SOB 02/13/23 03/01/24 History solution for nebulization alprazolam 0.25 mg tablet (Xanax) 0.25 mg PO TID PRN anxiety 02/13/23 03/01/24 History aspirin 81 mg tablet,delayed 81 mg PO DAILY 02/13/23 03/01/24 History release (Adult Low Dose Aspirin) cholecalciferol (vitamin D3) 25 25 mcg PO DAILY 02/13/23 03/01/24 History mcg (1,000 unit) tablet escitalopram oxalate 10 mg tablet 10 mg PO DAILY 02/13/23 03/01/24 History famotidine 40 mg tablet 40 mg PO DAILY 02/13/23 03/01/24 History levothyroxine 75 mcg capsule 75 mcg PO DAILY 02/13/23 03/01/24 History ramipril 2.5 mg capsule 2.5 mg PO DAILY 02/13/23 03/01/24 History rosuvastatin 10 mg tablet 10 mg PO DAILY 02/13/23 03/01/24 History dextromethorphan-gua ifenesin 10 10 ml PO Q6-8H PRN cough #118 mL 05/28/23 03/01/24 Rx mg-200 mg/5 mL oral liquid (Adult [facility]) Have you fallen in the past year?: Yes PFSH Medical History (Reviewed 03/01/24 @ 13:07 by Ariella Conway BILLIARD PARLOR MANAGER, BILLIARD PARLOR MANAGER-C) Cervical disc disorder DJD (degenerative joint disease) Steatosis of liver Hiatal hernia Barretts esophagus Chronic GERD Coronary arteriosclerosis in viejas artery Essential (primary) hypertension Carpal tunnel syndrome Depressive disorder Mixed hyperlipidemia Vitamin D deficiency Hypothyroidism Coronary artery disease Surgical History History of PTCA H/O tubal ligation History of cholecystectomy H/O heart artery stent Family History (Reviewed 03/01/24 @ 13:07 by Ariella Conway BILLIARD PARLOR MANAGER, BILLIARD PARLOR MANAGER-C) Sister Breast cancer Social History (Reviewed 03/01/24 @ 13:07 by Ariella Conway BILLIARD PARLOR MANAGER, BILLIARD PARLOR MANAGER-C) Smoking Status: Never smoker ROS Const Const: Negative for fatigue, weakness, fever(s), headache(s), chills, frequent falls, weight gain or weight loss Eyes Eyes: Negative for blind spots, loss of peripheral vision, transient loss of vision, blurry vision, change in vision, double vision, floaters or tunnel vision ENT ENT: Positive for dizziness; Negative for headache(s), Nosebleed/epistaxis, balanc (more content not included)... Normal [facility] CTA Head AND Neck W/ Contras ton 02-25-2024 CTA Head AND Neck W/ Contrast [facility] Imaging Services [address] [place] [id number] CTA Head AND Neck W/ Contrast MR#: [id number] Acct: [id number] Name: RADHA HU Rep #: [id number] : 1950 F 73 From: Christian plaza MD PCP: PADMINI LEONG Status: REG CLI Study: CTA Head AND Neck W/ Contrast Date of Exam: Exam# [id number] Ordering Dr: BREANNE PATEL [id number] STUDY: CTA HEAD AND NECK WITH CONTRAST REASON FOR EXAM: Female, 73 years old. Arteriovenous malformation of cerebral vessels RADIATION DOSAGE (If Supplied By Facility): CTDIvol = ( 27.14 ) mGy, DLP = ( 1582.96 ) mGycm TECHNIQUE: CT angiography was performed with a multi-detector CT scanner. Data acquisition was obtained from the skull base through the vertex following intravenous administration of IV 100mL Isovue-370. MIP images were reconstructed from the axial data set. Post-processing of the angiographic images was performed, with multiplanar reformation and 3D reconstruction. Individualized dose optimization techniques were used for this CT. COMPARISON: No relevant priors. FINDINGS: Normal bilateral petrous carotid arteries. There is calcified plaque formation of the right cavernous carotid artery, with a mild stenosis (less than 50%). There is calcified plaque formation of the left cavernous carotid artery, with a mild stenosis (less than 50%). Normal right A1 segments of the anterior cerebral artery. Normal left A1 segments of the anterior cerebral artery. Normal intact anterior communicating artery (ACOM). Normal bilateral A2 segments of the anterior cerebral arteries. Normal right M1 and M2 segments of the middle cerebral arteries, with a normal M1 bifurcation. Normal left M1 and M2 segments of the middle cerebral arteries, with a normal M1 bifurcation. Normal right posterior communicating artery (PCOM). Normal left posterior communicating artery (PCOM). Normal bilateral vertebral arteries. Normal basilar artery with a normal basilar bifurcation. The visualized bilateral superior cerebellar (SCA) arteries are normal. Normal bilateral P1, P2 and visualized P3 segments of the posterior cerebral arteries. There is no demonstrated aneurysm of the [place] of [place]. There is no demonstrated abnormality of the visualized brain. AORTIC ARCH: Normal visualized aortic arch. Normal origins of the brachiocephalic, left common carotid, and left subclavian arteries. RIGHT CAROTID ARTERIES: Normal right common carotid artery (CCA). There is moderate atherosclerotic plaque formation with mild narrowing of the right carotid bulb. There is moderate atherosclerotic plaque formation of the origin of the right internal carotid artery with less than 50% cross sectional diameter stenosis. There is atherosclerotic tortuous elongation of the cervical portion of the right internal carotid artery. Normal origin of the right external carotid artery (ECA). LEFT CAROTID ARTERIES: Normal left common carotid artery (CCA). There is moderate atherosclerotic plaque formation with mild narrowing of the carotid bulb. There is moderate atherosclerotic plaque formation of the origin of the left internal carotid artery with less than 50% cross sectional diameter stenosis. There is atherosclerotic tortuous elongation of the cervical portion of the left internal carotid artery. Normal origin of the left external carotid artery (ECA). VERTEBRAL ARTERIES: Normal bilateral vertebral arteries. CT/CTA Head AND Neck W/ Contrast IMPRESSION: No acute abnormalities. No large vessel occlusion. No hemodynamically significant stenoses. No aneurysms. No AVM. Electronically Signed: Christian Monterroso MD at 20:14 EDT , CC: BREANNE PATEL; PADMINI LEONG Fluorescent Lighting Model Maker: Signed Normal [facility] No Panel Informationon 02-24 NEGATED: Highlighted row [facility] Brain W/WO Contraston 2023 Brain W/WO Contrast [facility] Imaging Services [address] [place], [place] [id number] Brain W/WO Contrast MR#: [id number] Acct: [id number] Name: RADHA HU Rep #: [id number] : 1950 F 73 From: Kei Silverman MD PCP: PADMINI LEONG Status: REG CLI Study: Brain W/WO Contrast Date of Exam: 02/11/24 Exam# [id number] Ordering Dr: GABRIEL PATEL [id number] EXAM: MR HEAD WITHOUT AND WITH INTRAVENOUS CONTRAST CLINICAL INDICATION: OCCIPITAL NEURALGIA, PAIN BASE OF SKULL INTO R ARM TECHNIQUE: Multiplanar and multisequence MR images of the brain were obtained without and with intravenous contrast. CONTRAST: IV 23CC CLARISCAN COMPARISON: No relevant prior studies available. FINDINGS: BRAIN AND EXTRA-AXIAL SPACES: Increased T2 signal intensity within the cerebral white matter suggestive of chronic microvascular change. No abnormal contrast enhancement. 4 mm focus of susceptibility artifact within the posterior right temporal lobe adjacent to the trigone of the right lateral ventricle suggestive of old hemorrhage. No acute intra- or extra-axial hemorrhage. No evidence of acute infarct. No intracranial mass or mass effect. Normal preservation of the garnett/white matter interface. Posterior fossa structures are unremarkable. Ventricles are appropriate for age. No hydrocephalus. Basal cisterns are patent. SELLA: Normal. Normal sella turcica, pituitary gland, infundibular stalk, optic chiasm and hypothalamus. AUDITORY SYSTEM: Normal. The internal auditory canals are patent. BONES/JOINTS: Intact calvarium. SINUSES: Unremarkable as visualized. Clear. MASTOID AIR CELLS: Unremarkable as visualized. Clear. ORBITS: Unremarkable as visualized. Both globes, extraocular muscles, optic nerves and retrobulbar fat appear unremarkable. VASCULATURE: Unremarkable as visualized. Normal flow voids in the major intracranial circulation. MRI/Brain W/WO Contrast IMPRESSION: 1. No acute intracranial abnormality. 2. Senescent changes. Electronically Signed: Kei Silverman MD at 16:41 EDT , CC: GABRIEL PATEL; PADMINI LEONG Fluorescent Lighting Model Maker: Signed Normal [facility] CREATININE FINGERSTICKon CREATININE WB < 1.0 Normal 0.55-1.02 [facility] Comment on above: Performed By: #### L 9100.0200 ####[facility] [id number] [place], [place], [id number] EGFR WB > 60.0000 Normal >60 [facility] Comment on above: Performed By: #### L 9100.0200 ####[facility] [id number] [place], [address] No Panel Informationon 02-10 NEGATED: Highlighted row [facility] Spine Cervical W/WO Contrast on 02-11-2024 Spine Cervical W/WO Contrast [facility] Imaging Services [address] [place], [place] [address] Spine Cervical W/WO Contrast MR#: [id number] Acct: [id number] Name: RADHA HU Rep #: [id number] : 1950 F 73 From: Erik torres MD PCP: PADMINI LEONG Status: REG CLI Study: Spine Cervical W/WO Contrast Date of Exam: Exam# [id number] Ordering Dr: GABRIEL PATEL [id number] STUDY: MRI CERVICAL SPINE WITH AND WITHOUT CONTRAST REASON FOR EXAM: Female, 73 years old. OCCIPITAL NEURALGIA C/O PAIN INTO R ARM TECHNIQUE: Standardized fat and water weighted pulse sequences were obtained in the sagittal and axial following administration of IV 23CC CLARISCAN. COMPARISON: None FINDINGS: Normal foramen magnum and brainstem-cervical cord junction. Normal craniovertebral junction. Normal anterior atlantoaxial articulation. Normal odontoid process. There is reversal of the normal cervical lordosis. Disc desiccation is present at all levels. C2-3: Normal endplates. Normal disc height and morphology. Normal central canal and intervertebral neural foramina. C3-4: Normal endplates. Mild disc space narrowing with diffuse disc bulging as well as a broad-based midline to right paracentral disc protrusion compressing the anterior aspect of the cord and contributing to mild to moderate central canal stenosis. Severe right foraminal stenosis with nerve root compression. Moderate left foraminal stenosis with nerve root compression due to uncovertebral and significant facet joint hypertrophy. Moderate right uncovertebral hypertrophy. C4-5: Diffuse disc desiccation with mild disc space narrowing and diffuse disc bulging. Superimposed shallow left paracentral disc protrusion compresses the left anterior aspect of the cord. The diffuse disc bulge causes compression across the remaining aspect of the cord and contributes to mild to moderate central canal stenosis mild right foraminal stenosis. Moderate left foraminal stenosis with nerve root compression due to combined uncovertebral facet joint hypertrophy. C5-6: Diffuse disc desiccation with mild to moderate disc space narrowing and diffuse disc bulge with compression on anterior aspect of the cord. Superimposed broad-based left paracentral disc protrusion is also present. Mild to moderate central canal stenosis. Moderate left and severe right foraminal stenosis with nerve root compression due to uncovertebral and facet joint hypertrophy. Severe right uncovertebral hypertrophy. C6-7: Moderate disc space narrowing with a diffuse disc bulge/spur complex with mild compression anterior aspect of the cord and [id number] central canal stenosis. Moderate to severe bilateral foraminal stenosis with nerve root compression, due to uncovertebral hypertrophy. C7-T1: Normal endplates. Mild disc space narrowing and slight annular bulging. Anterolisthesis of C7 on T1 of less than 2 mm. Normal central canal and intervertebral neural foramina. Normal cervical cord. There is no demonstrated cervical cord syrinx cavity. Normal visualized soft tissue structures. No aggressive or suspicious enhancing bony or soft tissue abnormality is present. There are no lesions of the spinal cord or intrathecal sac. No nerve root lesions are present. MRI/Spine Cervical W/WO Contrast IMPRESSION: 1. Multilevel degenerative changes, as described above. Electronically Signed: Erik Saravia MD at 15:10 EDT Reading Location ID and State: [facility] / [place] , Service support , CC: GABRIEL PATEL; PADMINI LEONG Fluorescent Lighting Model Maker: Signed Normal [facility] SCRN MAMM (CAD)W/RYAN scruggs 11-25-2023 SCRN MAMM (CAD)W/RYAN MONTOYA [facility] Imaging Services [address] [place] [address] SCRN MAMM (CAD)W/RYAN BILAT MR#: [id number] Acct: [id number] Name: RADHA HU Rep #: [id number] : 1950 F 72 From: Pb shaffer MD PCP: PADMINI LEONG Status: REG CLI Study: SCRN MAMM (CAD)W/RYAN BILAT Date of Exam: 11/15 Exam# [id number] Ordering Dr: Padmini Leong MD [id number] MAMMOGRAPHY - BILATERAL SCREENING REASON FOR EXAM: Female, 72 years old. Routine annual screening examination. PERTINENT HISTORY: Sister with breast cancer. Occasional bilateral breast pain. TECHNIQUE: Digital bilateral breast ryan (3D mammographic acquisition) in the CC and MLO projections. 2-D mediolateral oblique (MLO) and craniocaudad (CC) views of both breasts were obtained. CAD: Full Field Digital Mammography with Computer Added Detection was performed. COMPARISON: Comparison is made with prior study dated September 01, 2022. FINDINGS: Breast Composition: The breasts are almost entirely fatty. There are no dominant masses or suspicious calcifications. Stable small benign-appearing bilateral axillary lymph nodes. Stable bilateral secretory calcifications. No other significant abnormalities are identified. There has been no significant change since the prior study. BI/SCRN MAMM (CAD)W/RYAN BILAT IMPRESSION: Stable bilateral screening mammogram. Yearly follow-up mammogram recommended. (A) ASSESSMENT CATEGORY: BIRADS Category 2: Benign. A letter regarding these results will be sent to the patient by the facility within 30 days. Approximately 10% of breast cancers are not detected by mammography. A normal mammogram should not delay biopsy of a clinically suspicious abnormality. [id number] Electronically Signed: Pb Pozo MD at 12:58 EDT Reading Location ID and State: [facility] / [place] , Service support , CC: Dr. Padmini Leong MD; PADMINI LEONG Fluorescent Lighting Model Maker: Signed Normal [facility] XR ANKLE MINIMUM 3 VIEWS LEF Ton 08-21-2023 XR ANKLE MINIMUM 3 VIEWS LEFT ORIGINAL EXAMINATION: THREE XRAY VIEWS OF THE LEFT ANKLE08/20/2023 3:14 pm ANKLE 3 VIEWS LEFT COMPARISON: None HISTORY: ORDERING SYSTEM PROVIDED HISTORY: Reason for Exam: left ankle pain FINDINGS: There is no evidence of acute fracture or subluxation. There is mild ankle joint degenerative change medially. No visible bone lesions.. There is diffuse soft tissue swelling. There is atherosclerotic disease. IMPRESSION: Chronic changes as above. Interpreted by: Santi Vega MD Preliminary Report By: Santi Vega MD Electronically signed By Santi Vega MD Dictated Date: 08/21/2023 3:34:06 PM Prelim Date: 08/21/2023 3:35:00 PM Sign Date: 08/21/2023 3:35:00 PM Ordering Provider: [facility] ([place]) Basophil percentageOrdered B y: Reyna Landon on 08-04-2023 Basophil percentage >100 SEEN /hpf 0-5 [facility] Bilirubin Test strip Ql (U)O rdered By: Reyna Landon on 08-04-2023 Bilirubin Ql (U) Negative Negative [facility] Ketones Test strip Ql (U)Ord ered By: Reyna Landon on 08-04-2023 Ketones Ql (U) 15 mg/dl Negative [facility] Mucus LM Ql (Urine sed)Order ed By: Reyna Landon on 08-04-2023 Mucus Ql (Urine sed) 0 SEEN /hpf [facility] Nitrite Test strip Ql (U)Ord ered By: Reyna Landon on 08-04-2023 Nitrite Ql (U) Negative Negative [facility] No Panel InformationOrdered By: Reyna Landon on 08-04-2023 Urine RBC > 100 SEEN /hpf 0-5 [facility] Protein Test strip Ql (U)Ord ered By: Reyna Landon on 08-04-2023 Protein Ql (U) 500 mg/dl Negative [facility] Squamous epithelial cells de tection in urine sediment by light microscopyOrdered By: Reyna Landon on 08-04-2023 Epithelial cells.squamous LM Ql (Urine sed) 0-5 SEEN /hpf 5-10 [facility] Urine blood detectionOrdered By: Reyna Landon on 08-04-2023 RBC Ql (U) 250 /ul Negative [facility] Urine clarityOrdered By: Meka Landon on 08-04-2023 Clarity (U) Cloudy Clear [facility] Urine color determinationOrd ered By: Reyna Landon on 08-04-2023 Color (U) Brown Yellow [facility] Urine glucose detectionOrder ed By: Reyna Landon on 08-04-2023 Glucose Ql (U) Normal mg/dl Normal [facility] Urine leukocyte esterase det ection by dipstickOrdered By: Reyna Landon on 08-04-2023 Leukocyte esterase Test strip Ql (U) 500 /ul Negative [facility] Urine pHOrdered By: Reyna Landon on 08-04-2023 pH (U) 6.5 [pH] 5.0 - 8.0 [facility] Urine sediment bacteria coun t by microscopy (number/high power field)Ordered By: Reyna Landon on 08-04-2023 Bacteria LM.HPF (Urine sed) [#/Area] 0 /[HPF] None Seen [facility] Urine specific gravity measu rementOrdered By: Reyna Landon on 08-04-2023 Specific gravity (U) [Rel density] 1.025 1.002-1.030 [facility] Urine urobilinogen measureme ntOrdered By: Reyna Landon on 08-04-2023 Urobilinogen Ql (U) Normal mg/dl Normal [facility] No Panel Informationon 07-09 NEGATED: Highlighted row Keith Jessie Absolute lymphocyte counton 06-30-2023 Lymphocytes Auto (Unsp spec) [#/Vol] 2.29 10*3/uL 0.83-4.51 [facility] Activated partial thrombopla stin time (aPTT) in platelet poor plasma by coagulation aon 06-30-2023 aPTT Coag (PPP) [Time] 26.5 s 24.1-36.2 [facility] Automated lymphocyte count a s percentage of total leukocyteson 06-30-2023 Lymphocytes/100 WBC Auto (Unsp spec) 31.8 % 19-41 [facility] Basophil percentageon 2023 Basophils/100 WBC (Bld) 0.6 % 0-1 [facility] Bilirubin [Mass/Vol] 0.30 mg/dL 0.20-1.[address] [facility] Comment on above: For patients on eltr ombopag therapy, use of Dimension [place] TBIL is not recommended. Chloride [Moles/Vol] 109 mmol/L 98-[address] [facility] Cholesterol [Mass/Vol] 150 mg/dL <200 [facility] Comment on above: <200 mg/dL Desirable 200-240 mg/dL Borderline >240 mg/dL High Risk Eosinophils/100 WBC (Bld) 2.9 % 0-5 [facility] Glucose [Mass/Vol] 90 mg/dL 74-106 [facility] Hemoglobin (Bld) [Mass/Vol] 13.1 g/dL 12.0-15.0 [facility] Monocytes/100 WBC (Bld) 8.6 % 0-10 [facility] Neutrophils (Bld) [#/Vol] 4.0 10*3/uL 2.0-7.7 [facility] Neutrophils/100 WBC (Bld) 55.8 % 47-70 [facility] Potassium [Moles/Vol] 4.0 mmol/L 3.5-5.1 [facility] Protein [Mass/Vol] 7.3 g/dL 6.4-8.2 [facility] Sodium [Moles/Vol] 142 mmol/L 136-145 [facility] Triglyceride [Mass/Vol] 71 mg/dL <199 [facility] Comment on above: The drugs N-Acetylcy steine and Metamizole may falsely depress this assay.Serum Triglycerides Reference Interval Normal <150 mg/dL Borderline high 150 - 199 mg/dL High 200 - 499 mg/dL Very High > or = 500 mg/dL WBC (Bld) [#/Vol] 7.2 10*3/uL 4.4-11.0 [facility] Determination of erythrocyte mean corpuscular volume (MCV)on 06-30-2023 MCV (RBC) [Entitic vol] 92.3 fL 81-99 [facility] Erythrocyte distribution wid th ratioon 06-30-2023 Erythrocyte distribution width (RBC) [Ratio] 13.5 % 11.6-14.6 [facility] Erythrocyte distribution wid th standard deviationon 06-30-2023 Erythrocyte distribution width (RBC) [Entitic vol] 46.5 fL 35.1-43.9 [facility] Hematocrit Auto (Bld) [Volum e fraction]on 06-30-2023 Hematocrit (Bld) [Volume fraction] 42.1 % 37-47 [facility] Immature granulocytes/100 WB C Auto (Bld)on 06-30-2023 Immature granulocytes/100 WBC (Bld) 0.300 % 0.0-0.9 [facility] Comment on above: IG% - Immature Granu locytes (promyelocytes, myelocytes and metamyelocytes) > 1% indicates that a LEFT SHIFT is Present. Laboratory - Chemistry and C hemistry - challengeon 06-30-2023 Albumin/Globulin [Mass ratio] 0.9 {ratio} 0.9-2.4 [facility] ALP [Catalytic activity/Vol] 91 U/L 45-117 [facility] ALT [Catalytic activity/Vol] 14 U/L 13-56 [facility] Cholesterol in HDL [Mass/Vol] 58 mg/dL >40 [facility] Comment on above: The drugs N-Acetylcy steine and Metamizole may falsely depress this assay. Reference Range HDL <40 mg/dL Low HDL Cholesterol HDL >or= 60 mg/dL High HDL Cholesterol Cholesterol in LDL [Mass/Vol] 78 mg/dL 0-130 [facility] CO2 [Moles/Vol] 27.0 mmol/L 21.0-32.0 [facility] Globulin (S) [Mass/Vol] 3.9 g/dL 2.2-4.2 [facility] Urea nitrogen/Creatinine [Mass ratio] 20.8 mg/mg 10-20 [facility] Laboratory - Coagulationon 0 06-30-2023 INR Coag (Bld) [Relative time] 1.0 {INR} [facility] PT Coag (PPP) [Time] 13.2 s 11.7-14.[address] [facility] Laboratory - Hematology and Cell countson 06-30-2023 MCH (RBC) [Entitic mass] 28.7 pg 27.0-32.0 [facility] MCHC (RBC) [Mass/Vol] 31.1 g/dL 32-36 [facility] Nucleated RBC/100 WBC (Bld) [Ratio] 0 % 0-5 [facility] Platelet mean volume (Bld) [Entitic vol] 9.4 fL 6.2-12.0 [facility] Platelets (Bld) [#/Vol] 263 10*3/uL 150-450 [facility] No Panel Informationon 06-30 Estimated GFR (MDRD) Amer 88 mL/min >60 [facility] Comment on above: GFR Calc Estimated GFR (MDRD) Non-Af Amer 72 mL/min >60 [facility] Comment on above: Non- GFR Calc Vitamin D 25-Hydroxy 34.4 ng/mL [facility] Comment on above: Vitamin D 25(OH) Sta tus Range Deficiency <20 ng/mL (50nmol/L) Insufficiency 20 - 30 ng/mL (50 - 75 nmol/L) Sufficiency 30 - 100 ng/mL (75 - 250 nmol/L) Toxicity >100 ng/mL (>250 nmol/L) VLDL Cholesterol 14 mg/dL 5-40 [facility] RBC Auto (Bld) [#/Vol]on RBC (Bld) [#/Vol] 4.56 10*6/uL 4.2-5.4 [facility] Serum or plasma calcium amanda urement (mass/volume)on 06-30-2023 Calcium [Mass/Vol] 8.9 mg/dL 8.5-10.1 [facility] Serum or plasma creatinine m easurement (mass/volume)on 06-30-2023 Creatinine [Mass/Vol] 0.82 mg/dL 0.55-1.02 [facility] Comment on above: The validity of the calculated GFR & GFRAA in patients over 70 years has not been determined. Clinical correlation is essential. Serum or plasma thyroid stim ulating hormone (TSH) measurement (units/volume)on 06-30-2023 TSH Qn 1.30 uIU/mL 0.358-3.74 [facility] Serum or plasma transthyreti n measurement (mass/volume)on 06-30-2023 Prealbumin [Mass/Vol] 19.0 mg/dL 20.0-40.0 [facility] Serum or plasma urea nitroge n measurement (mass/volume)on 06-30-2023 Urea nitrogen [Mass/Vol] 17 mg/dL 7-18 [facility] Thin prep Papanicolaou smear with manual screeningon 06-30-2023 Thin prep Papanicolaou smear with manual screening 3.4 g/dL 3.2-5.0 [facility] Thin prep Papanicolaou smear with manual screening 18 U/L 15-37 [facility] Thin prep Papanicolaou smear with manual screening 6 5-15 [facility] Whole blood hemoglobin A1c/t otal hemoglobin ratio (mass fraction)on 06-30-2023 HbA1c (Bld) [Mass fraction] 5.6 % 3.8-5.6 [facility] Comment on above: Normal < 5.7 % Predi abetic 5.7 - 6.4 % Diabetic >or= 6.5 % Please note range changes. No Panel Informationon 05-28 POC Nasal Swab RSV Negative [facility] Influenza Types A,B Rapid (Clinic) Negative [facility] POC SARS CoV-2 Antigen Negative [facility] Absolute lymphocyte countOrd ered By: Teja Carvajal on 05-13-2023 Lymphocytes Auto (Unsp spec) [#/Vol] 3.03 10*3/uL 0.83-4.51 [facility] Basophil percentageOrdered B y: Teja Carvajal on 05-13-2023 Basophils/100 WBC (Bld) 0.5 % 0-1 [facility] Chloride [Moles/Vol] 108 mmol/L 98-[address] [facility] Eosinophils/100 WBC (Bld) 3.1 % 0-5 [facility] Glucose [Mass/Vol] 98 mg/dL 74-106 [facility] Neutrophils (Bld) [#/Vol] 4.0 10*3/uL 2.0-7.7 [facility] Neutrophils/100 WBC (Bld) 50.5 % 47-70 [facility] Potassium [Moles/Vol] 4.2 mmol/L 3.5-5.1 [facility] Sodium [Moles/Vol] 140 mmol/L 136-145 [facility] WBC (Bld) [#/Vol] 8.0 10*3/uL 4.4-11.0 [facility] Blood erythrocytes count (nu mber/volume)Ordered By: Teja Carvajal on 05-13-2023 RBC (Bld) [#/Vol] 4.75 10*6/uL 4.2-5.4 [facility] Blood hemoglobin measurement (mass/volume)Ordered By: Teja Carvajal on 05-13-2023 Hemoglobin (Bld) [Mass/Vol] 13.6 g/dL 12.0-15.0 [facility] Blood lymphocytes/100 leukoc ytesOrdered By: Teja Carvajal on 05-13-2023 Lymphocytes/100 WBC (Bld) 38.0 % 19-41 [facility] Blood monocytes/100 leukocyt esOrdered By: Teja Carvajal on 05-13-2023 Monocytes/100 WBC (Bld) 7.6 % 0-10 [facility] Blood platelet mean volumeOr dered By: Teja Carvajal on 05-13-2023 Platelet mean volume (Bld) [Entitic vol] 8.8 fL 6.2-12.0 [facility] Determination of erythrocyte mean corpuscular volume (MCV)Ordered By: Teja Carvajal on 05-13-2023 MCV (RBC) [Entitic vol] 92.6 fL 81-99 [facility] Hematocrit Auto (Bld) [Volum e fraction]Ordered By: Teja Carvajal on 05-13-2023 Hematocrit (Bld) [Volume fraction] 44.0 % 37-47 [facility] Laboratory - Chemistry and C hemistry - challengeOrdered By: Teja Carvajal on 05-13-2023 CO2 [Moles/Vol] 30.0 mmol/L 21.0-32.0 [facility] Urea nitrogen/Creatinine [Mass ratio] 23.6 mg/mg 10-20 [facility] Laboratory - Hematology and Cell countsOrdered By: Teja Carvajal on 05-13-2023 Erythrocyte distribution width (RBC) [Entitic vol] 46.9 fL 35.1-43.9 [facility] Erythrocyte distribution width (RBC) [Ratio] 13.7 % 11.6-14.6 [facility] Immature granulocytes/100 WBC (Bld) 0.300 % 0.0-0.9 [facility] Comment on above: IG% - Immature Granu locytes (promyelocytes, myelocytes and metamyelocytes) > 1% indicates that a LEFT SHIFT is Present. MCH (RBC) [Entitic mass] 28.6 pg 27.0-32.0 [facility] Nucleated RBC/100 WBC (Bld) [Ratio] 0 % 0-5 [facility] MCHC Auto (RBC) [Mass/Vol]Or dered By: Teja Carvajal on 05-13-2023 MCHC (RBC) [Mass/Vol] 30.9 g/dL 32-36 [facility] No Panel InformationOrdered By: Teja Carvajal on 05-13-2023 Estimated GFR (MDRD) Amer 84 mL/min >60 [facility] Comment on above: GFR Calc Estimated GFR (MDRD) Non-Af Amer 70 mL/min >60 [facility] Comment on above: Non- GFR Calc Platelets bldOrdered By: Tio Carvajal on 05-13-2023 Platelets (Bld) [#/Vol] 285 10*3/uL 150-450 [facility] Serum or plasma calcium amanda urement (mass/volume)Ordered By: Teja Carvajal on 05-13-2023 Calcium [Mass/Vol] 9.2 mg/dL 8.5-10.1 [facility] Serum or plasma creatinine m easurement (mass/volume)Ordered By: Teja Carvajal on 05-13-2023 Creatinine [Mass/Vol] 0.85 mg/dL 0.55-1.02 [facility] Comment on above: The validity of the calculated GFR & GFRAA in patients over 70 years has not been determined. Clinical correlation is essential. Serum or plasma urea nitroge n measurement (mass/volume)Ordered By: Teja Carvajal on 05-13-2023 Urea nitrogen [Mass/Vol] 20 mg/dL 7-18 [facility] Thin prep Papanicolaou smear with manual screeningOrdered By: Teja Carvajal on 05-13-2023 Thin prep Papanicolaou smear with manual screening 2 5-15 [facility] No Panel Informationon 04-13 NEGATED: Highlighted row [place] XR CALCANEOUS MINIMUM 2 VIEW S RIGHTon 03-09-2023 XR CALCANEOUS MINIMUM 2 VIEWS RIGHT ORIGINAL EXAMINATION: TWO XRAY VIEWS OF THE RIGHT HEEL/CALCANEUS 03/05/2023 3:52 pm COMPARISON: None. HISTORY: ORDERING SYSTEM PROVIDED HISTORY: Reason for Exam: Planter Fasciitis Right Foot/right foot pain FINDINGS: There are moderate to large posterior and moderate plantar calcaneal spurs noted. Vascular calcification is evident. There is mild midfoot degenerative change and there is mild degenerative change at the ankle joint. No fracture, dislocation, bone destruction, or periosteal reaction seen. IMPRESSION: Degenerative findings, no acute process. Interpreted by: Santi De Leon MD Preliminary Report By: Santi De Leon MD Electronically signed By Santi De Leon MD Dictated Date: 03/09/2023 8:17:17 AM Prelim Date: 03/09/2023 8:17:48 AM Sign Date: 03/09/2023 8:17:48 AM Ordering Provider: YVONNE MATTHEWSMPER [facility] ([place]) Basophil percentageon 2022 Bilirubin [Mass/Vol] 0.40 mg/dL 0.20-1.[address] [facility] Comment on above: For patients on eltr ombopag therapy, use of Dimension [place] TBIL is not recommended. Chloride [Moles/Vol] 107 mmol/L 98-[address] [facility] Cholesterol [Mass/Vol] 148 mg/dL <200 [facility] Comment on above: <200 mg/dL Desirable 200-240 mg/dL Borderline >240 mg/dL High Risk Glucose [Mass/Vol] 90 mg/dL 74-106 [facility] Potassium [Moles/Vol] 4.4 mmol/L 3.5-5.1 [facility] Protein [Mass/Vol] 7.6 g/dL 6.4-8.2 [facility] Sodium [Moles/Vol] 139 mmol/L 136-145 [facility] Triglyceride [Mass/Vol] 75 mg/dL <199 [facility] Comment on above: The drugs N-Acetylcy steine and Metamizole may falsely depress this assay.Serum Triglycerides Reference Interval Normal <150 mg/dL Borderline high 150 - 199 mg/dL High 200 - 499 mg/dL Very High > or = 500 mg/dL Laboratory - Chemistry and C hemistry - challengeon 02-25-2023 ALP [Catalytic activity/Vol] 98 U/L 45-117 [facility] ALT [Catalytic activity/Vol] 21 U/L 13-56 [facility] CO2 [Moles/Vol] 30.0 mmol/L 21.0-32.0 [facility] Globulin (S) [Mass/Vol] 4.1 g/dL 2.2-4.2 [facility] Urea nitrogen/Creatinine [Mass ratio] 14.7 mg/mg 10-20 [facility] No Panel Informationon 02-25 Estimated GFR (MDRD) Amer 80 mL/min >60 [facility] Comment on above: GFR Calc Estimated GFR (MDRD) Non-Af Amer 66 mL/min >60 [facility] Comment on above: Non- GFR Calc Vitamin D 25-Hydroxy 33.8 ng/mL [facility] Comment on above: Vitamin D 25(OH) Sta tus Range Deficiency <20 ng/mL (50nmol/L) Insufficiency 20 - 30 ng/mL (50 - 75 nmol/L) Sufficiency 30 - 100 ng/mL (75 - 250 nmol/L) Toxicity >100 ng/mL (>250 nmol/L) Serum or plasma albumin amanda urement (mass/volume)on 02-25-2023 Albumin [Mass/Vol] 3.5 g/dL 3.2-5.0 [facility] Serum or plasma albumin/glob ulin mass ratioon 02-25-2023 Albumin/Globulin [Mass ratio] 0.9 {ratio} 0.9-2.4 [facility] Serum or plasma calcium amanda urement (mass/volume)on 02-25-2023 Calcium [Mass/Vol] 9.1 mg/dL 8.5-10.1 [facility] Serum or plasma cholesterol in HDL measurement (mass/volume)on 02-25-2023 Cholesterol in HDL [Mass/Vol] 62 mg/dL >40 [facility] Comment on above: The drugs N-Acetylcy steine and Metamizole may falsely depress this assay. Reference Range HDL <40 mg/dL Low HDL Cholesterol HDL >or= 60 mg/dL High HDL Cholesterol Serum or plasma cholesterol in VLDL measurement (mass/volume)on 02-25-2023 Cholesterol in VLDL [Mass/Vol] 15 mg/dL 5-40 [facility] Serum or plasma creatinine m easurement (mass/volume)on 02-25-2023 Creatinine [Mass/Vol] 0.88 mg/dL 0.55-1.02 [facility] Comment on above: The validity of the calculated GFR & GFRAA in patients over 70 years has not been determined. Clinical correlation is essential. Serum or plasma low density lipoprotein (LDL) cholesterol measurement (mass/volume)on 02-25-2023 Cholesterol in LDL [Mass/Vol] 71 mg/dL 0-130 [facility] Serum or plasma urea nitroge n measurement (mass/volume)on 02-25-2023 Urea nitrogen [Mass/Vol] 13 mg/dL 7-18 [facility] Thin prep Papanicolaou smear with manual screeningon 02-25-2023 Thin prep Papanicolaou smear with manual screening 16 U/L 15-37 [facility] Thin prep Papanicolaou smear with manual screening 2 5-15 [facility] 36on 11-17-2022 36 S: the patient is calling the [facility] about a URI B: symptoms began about a week ago A: the patient reports having cold symptoms for about a week. She reports having congestion, a croupy cough, right ear congestion and some intermittent trouble breathing. She states the trouble breathing is relieved by using her nebulizer - no trouble breathing at this time. She denies any ear pain. No fevers. No chest pain. She is using OTC Tylenol cold and cough, Nyquil, and Dayquil for her symptoms. She states her symptoms are not getting worse but are not improving. R: the patient is comfortable managing this at home - will call the office Thursday for an appointment if this continues. Discussed symptoms to call back or be seen at [facility] such as trouble breathing, chest pain, fevers, or feels her symptoms are getting worse. Reason for Disposition Common cold with no complications Protocols used: [id number]-2 VIEWon 09-21-2022 CHEST-2 VIEW RADHA HU Female [id number] Ordering physician: Marquis Ramirez LOC:RAD [id number] Attending physician: Marquis Ramirez [id number] DOS: 09/19/22 Acc#: [id number] Exam/Proc: CHEST-2 VIEW Dept: RADIOLOGY EXAMINATION: TWO XRAY VIEWS OF THE CHEST09/19/2022 2:41 pm COMPARISON: 02/16/2020 HISTORY: ORDERING SYSTEM PROVIDED HISTORY: TECHNOLOGIST PROVIDED HISTORY: Reason for Exam: R05.9 productive cough, shortness of breath and congestion FINDINGS: Normal heart size and mediastinal contours with mild calcification of aorta. No vascular congestion, consolidation or pleural effusion. There are interstitial opacities in the lung bases bilaterally likely peribronchial thickening which is probably chronic. Otherwise clear lungs. Dorsal spondylosis. Left shoulder prosthesis. IMPRESSION: No acute cardiopulmonary process. Lower lobe peribronchial cuffing is favored to be from reactive airway disease probably chronic. Electronically signed By Lyle Gonzalez MD 09/21/2022 9:54:59 PM EST Workstation ID : [id number] REPORT SIGNATURE ON FILE Electronically Signed Date/Time: 09/21/222153 Dictated Date/time: 09/21/222151 CC: Normal [facility] XR Chest 2 Viewson NEGATED: Highlighted row [facility] 25-hydroxyvitamin D [Mass/Vo l]on 08-07-2022 vit D 25 oh NG/mL [facility] (Lab) CBC W Auto Differential pane l (Bld)on 08-07-2022 bas0 % % [facility] (Lab) gran # K/uL [facility] (Lab) gran % % [facility] (Lab) MCH (RBC) [Entitic mass] 32.7 pg [facility] (Lab) mean corpuscular HGB pg [facility] red cell distri width % [facility] (Lab) CBC with AUTO DIFFon 023 BAS0 % 0.50 % Normal 0-2 [facility] Comment on above: Performed By: #### C BC #### [facility] [address] [place] [address] Basophils (Bld) [#/Vol] 0.0 10*3/uL Normal 0-0.1 [facility] (Lab) Comment on above: Performed By: #### C BC #### [address] [address] Eosinophils (Bld) [#/Vol] 0.2 10*3/uL Normal 0.0-1.80 [facility] (Lab) Comment on above: Performed By: #### C BC #### [address] [address] Eosinophils/100 WBC (Bld) 2.6 % Normal 0-8 [facility] (Lab) Comment on above: Performed By: #### C BC #### [address] [place] [address] GRAN # 4.7 K/uL Normal 2.2-9.1 [facility] Comment on above: Performed By: #### C BC #### [facility] [address] [place] [address] GRAN % 59.0 % Normal 42-80 [facility] Comment on above: Performed By: #### C BC #### [address] [address] Hematocrit (Bld) [Volume fraction] 40.2 % Normal 37.0-47.0 [facility] (Lab) Comment on above: Performed By: #### C BC #### [facility] [address] [place] [address] Hemoglobin (Bld) [Mass/Vol] 13.2 g/dL Normal 12.0-16.0 [facility] (Lab) Comment on above: Performed By: #### C BC #### [address] [place] [address] Lymphocytes (Bld) [#/Vol] 2.3 10*3/uL Normal 1.0-4.0 [facility] (Lab) Comment on above: Performed By: #### C BC #### [facility] [address] [place] [address] Lymphocytes/100 WBC (Bld) 29.2 % Normal 16-48 [facility] (Lab) Comment on above: Performed By: #### C BC #### [facility] [address] [place] [address] MCV (RBC) [Entitic vol] 90.6 fL Normal 80-97 [facility] (Lab) Comment on above: Performed By: #### C BC #### [facility] [address] [facility] [place] [address] MEAN CORPUSCULAR HGB 29.7 pg Normal 26.0-32.0 [facility] Comment on above: Performed By: #### C BC #### [facility] [address] [facility] [place] [address] MEAN CORPUSCULAR HGB CONC 32.7 g/dL Normal 31.0-36.0 [facility] Comment on above: Performed By: #### C BC #### [facility] [address] [facility] [place] [address] mono distrib width Not performed Normal 0-20 [facility] (Lab) Comment on above: Performed By: #### C BC #### [facility] [address] [facility] [place] [address] Monocytes (Bld) [#/Vol] 0.7 10*3/uL Normal 0.1-1.7 [facility] (Lab) Comment on above: Performed By: #### C BC #### [facility] [address] [facility] [place] [address] Monocytes/100 WBC (Bld) 8.7 % Normal 3-9 [facility] (Lab) Comment on above: Performed By: #### C BC #### [facility] [address] [facility] [place] [address] Platelet mean volume (Bld) [Entitic vol] 7.3 fL Normal 6.6-10.5 [facility] (Lab) Comment on above: Performed By: #### C BC #### [facility] [address] [facility] [place] [address] Platelets (Bld) [#/Vol] 281 10*3/uL Normal 140-450 [facility] (Lab) Comment on above: Performed By: #### C BC #### [facility] [address] [place] [address] RBC (Bld) [#/Vol] 4.43 10*6/uL Normal 4.20-5.50 [facility] (Lab) Comment on above: Performed By: #### C BC #### [facility] [address] [facility] [address] RED CELL DISTRI WIDTH 13.7 % Normal 11.0-15.5 [facility] Comment on above: Performed By: #### C BC #### [facility] [address] [place] [address] WBC (Bld) [#/Vol] 8.0 10*3/uL Normal 4.0-11.0 [facility] (Lab) Comment on above: Performed By: #### C BC #### [facility] [address] [place] [address] COMPREHENSIVE METABOLIC PANE Wilfredo 08-07-2022 Albumin [Mass/Vol] 3.4 g/dL Normal 3.4-5.0 [facility] (Lab) Comment on above: Performed By: #### L IPID TSH MN #### [facility] [address] [place] [address] Albumin/Globulin [Mass ratio] 0.9 {ratio} Low 1.1-1.8 [facility] (Lab) Comment on above: Performed By: #### L IPID TSH, [place] #### [facility] [address] [place] [address] ALP [Catalytic activity/Vol] 81 U/L Normal 45-117 [facility] (Lab) Comment on above: Performed By: #### L IPID TSH, MN #### [facility] [address] [place] [address] ALT [Catalytic activity/Vol] 17 U/L Normal 12-78 [facility] (Lab) Comment on above: Performed By: #### L IPID TSH, MN #### [facility] [address] [place] [address] Anion gap [Moles/Vol] 10.0 mmol/L Low 11-23 [facility] (Lab) Comment on above: Performed By: #### L IPID, TSH, MN #### [facility] [address] [facility] [place] [address] AST [Catalytic activity/Vol] 14 U/L Low 15-37 [facility] Comment on above: Performed By: #### L IPID, TSH, MN #### [facility] [address] [facility] [place] [address] Bilirubin [Mass/Vol] 0.2 mg/dL Normal 0.2-1.0 [facility] (Lab) Comment on above: Performed By: #### L IPID, TSH, MN #### [facility] [address] [facility] [place] [address] Calcium [Mass/Vol] 9.0 mg/dL Normal 8.5-10.1 [facility] (Lab) Comment on above: Performed By: #### L IPID, TSH, [place] #### [address] [place] [address] Chloride [Moles/Vol] 106 mmol/L Normal 98-107 [facility] (Lab) Comment on above: Performed By: #### L IPID, TSH, MN #### [facility] [address] [facility] [place] [address] CO2 [Moles/Vol] 27.0 mmol/L Normal 21-32 [facility] (Lab) Comment on above: Performed By: #### L IPID, TSH, MN #### [facility] [address] [facility] [place] [address] Creatinine [Mass/Vol] 0.80 mg/dL Normal 0.55-1.02 [facility] (Lab) Comment on above: Performed By: #### L IPID, TSH, MN #### [facility] [address] [facility] [place] [address] GFR > 60.0 [facility] (Lab) Comment on above: Performed By: #### L IPID, TSH, MN #### [facility] [address] [facility] [place] [address] GFR AM > 60.0 [facility] (Lab) Comment on above: Result Comment: THE NORMAL LEVEL OF GFR VARIES ACCORDING TO AGE, SEX, AND BODY SIZE. A GFR LEVEL OF LESS THAN 60 ML/MIN REPRESENTS LOSS OF THE ADULT LEVEL OF NORMAL KIDNEY FUNCTION. Performed By: #### L IPID, TSH, MN #### [facility] [address] [facility] [place] [address] Globulin (S) [Mass/Vol] 3.9 g/dL Normal 2.5-4.6 [facility] Comment on above: Performed By: #### L IPID, TSH, MN #### [facility] [address] [facility] [place] [address] Glucose [Mass/Vol] 99 mg/dL Normal 70-100 [facility] (Lab) Comment on above: Performed By: #### L IPID, TSH, MN #### [facility] [address] [facility] [place] [address] Potassium [Moles/Vol] 4.2 mmol/L Normal 3.5-5.1 [facility] (Lab) Comment on above: Performed By: #### L IPID, TSH, MN #### [address] [place] [address] Protein [Mass/Vol] 7.3 g/dL Normal 6.0-8.3 [facility] (Lab) Comment on above: Performed By: #### L IPID, TSH, MN #### [address] [place] [address] Sodium [Moles/Vol] 138 mmol/L Normal 136-145 [facility] (Lab) Comment on above: Performed By: #### L IPID, TSH, MN #### [address] [place] [address] Urea nitrogen [Mass/Vol] 15.0 mg/dL Normal 7-18 [facility] (Lab) Comment on above: Performed By: #### L IPID, TSH, MN #### [facility] [address] [facility] [place] [address] Comprehensive metabolic 2000 panelon 08-07-2022 globulin g/dL [facility] (Lab) SGOT/AST U/L Low [facility] (Lab) LIPID PROFILE (FASTING)on CHOL/HDL RATIO 2.6 mg/dl Normal 3.7-5.6 [facility] Comment on above: Performed By: #### L IPID, TSH, MN #### [facility] [address] [facility] [place] [address] Cholesterol [Mass/Vol] 150 mg/dL Normal 0-200 [facility] (Lab) Comment on above: Performed By: #### L IPID, TSH, MN #### [facility] [address] [facility] [place] [address] Cholesterol in HDL [Mass/Vol] 59 mg/dL Normal 40-60 [facility] (Lab) Comment on above: Performed By: #### L IPID, TSH, MN #### [facility] [address] [facility] [place] [address] Cholesterol in LDL [Mass/Vol] 70 mg/dL Normal 0-130 [facility] (Lab) Comment on above: Performed By: #### L IPID, TSH, MN #### [facility] [address] [facility] [place] [address] Triglyceride [Mass/Vol] 108 mg/dL Normal 0-150 [facility] (Lab) Comment on above: Performed By: #### L IPID, TSH, MN #### [facility] [address] [facility] [place] [address] VLDL CALCULATION 22 mg/dl Normal 5-40 [facility] Comment on above: Performed By: #### L IPID, TSH, MN #### [facility] [address] [facility] [place] [address] Laboratory - Chemistry and C hemistry - challengeon 08-07-2022 Cholesterol.total/Choles terol in HDL [Mass ratio] 2.6 {ratio} [facility] (Lab) No Panel Informationon 08-07 VLDL calculation mg/dL [facility] (Lab) THYROID STIM HORMONEon 08-07 THYROID STIM HORMONE 3.070 uIU/mL Normal 0.358-3.74 [facility] Comment on above: Performed By: #### L IPID, TSH, MN #### [facility] [address] [facility] [place] [address] TSH Qnon 08-07-2022 thyroid stim hormone uIU/mL Atilio [facility] (Lab) VIT D 25 OHon 08-07-2022 VIT D 25 [place] 33.1 ng/mL Normal 30-100 [facility] Comment on above: Result Comment: Inte rpretation of VitD results: Adult: <20 ng/mL Deficient 20 - <30 ng/mL Insufficiency 30 - 100 ng/mL Sufficiency Pediatric: <15 ng/mL Deficient 15 - <20 ng/mL Insufficiency 20 - 100 ng/mL Sufficiency Performed By: #### V ITD #### [facility] [address] [facility] [place] [address] COMPREHENSIVE METABOLIC PANE Wilfredo 11-12-2021 Albumin [Mass/Vol] 3.4 g/dL Normal 3.4-5.0 [facility] Comment on above: Performed By: #### M N, LIPID #### [facility] [address] [facility] [place] [address] Albumin/Globulin [Mass ratio] 0.9 {ratio} Low 1.1-1.8 [facility] Comment on above: Performed By: #### M N, LIPID #### [facility] [address] [facility] [place] [address] ALP [Catalytic activity/Vol] 87 U/L Normal 45-117 [facility] Comment on above: Performed By: #### M N, LIPID #### [facility] [address] [facility] [place] [address] ALT [Catalytic activity/Vol] 19 U/L Normal 12-78 [facility] Comment on above: Performed By: #### M N, LIPID #### [facility] [address] [facility] [place] [address] Anion gap [Moles/Vol] 6.4 mmol/L Low 11-23 [facility] Comment on above: Performed By: #### M N, LIPID #### [facility] [address] [facility] [place] [address] AST [Catalytic activity/Vol] 16 U/L Normal 15-37 [facility] [facility] Comment on above: Performed By: #### M N, LIPID #### [facility] [address] [facility] [place] [address] Bilirubin [Mass/Vol] 0.3 mg/dL Normal 0.2-1.0 [facility] Comment on above: Performed By: #### M N, LIPID #### [facility] [address] [facility] [place] [address] Calcium [Mass/Vol] 8.8 mg/dL Normal 8.5-10.1 [facility] Comment on above: Performed By: #### M N, LIPID #### [facility] [address] [facility] [place] [address] Chloride [Moles/Vol] 109 mmol/L High 98-107 [facility] Comment on above: Performed By: #### M N, LIPID #### [facility] [address] [facility] [place] [address] CO2 [Moles/Vol] 31.0 mmol/L Normal 21-32 [facility] Comment on above: Performed By: #### M N, LIPID #### [facility] [address] [facility] [place] [address] Creatinine [Mass/Vol] 0.80 mg/dL Normal 0.55-1.02 [facility] Comment on above: Performed By: #### M N, LIPID #### [facility] [address] [facility] [place] [address] GFR > 60.0 [facility] Comment on above: Performed By: #### M N, LIPID #### [facility] [address] [facility] [place] [address] GFR AM > 60.0 [facility] Comment on above: Result Comment: THE NORMAL LEVEL OF GFR VARIES ACCORDING TO AGE, SEX, AND BODY SIZE. A GFR LEVEL OF LESS THAN 60 ML/MIN REPRESENTS LOSS OF THE ADULT LEVEL OF NORMAL KIDNEY FUNCTION. Performed By: #### M N, LIPID #### [address] [place] [address] Globulin (S) [Mass/Vol] 3.7 g/dL Normal 2.5-4.6 [facility] Comment on above: Performed By: #### M N, LIPID #### [facility] [address] [facility] [place] [address] Glucose [Mass/Vol] 88 mg/dL Normal 70-100 [facility] Comment on above: Performed By: #### M N, LIPID #### [facility] [address] [facility] [place] [address] Potassium [Moles/Vol] 4.2 mmol/L Normal 3.5-5.1 [facility] Comment on above: Performed By: #### M N, LIPID #### [facility] [address] [facility] [place] [address] Protein [Mass/Vol] 7.1 g/dL Normal 6.0-8.3 [facility] Comment on above: Performed By: #### M N, LIPID #### [address] [place] [address] Sodium [Moles/Vol] 142 mmol/L Normal 136-145 [facility] Comment on above: Performed By: #### M N, LIPID #### [facility] [address] [facility] [place] [address] Urea nitrogen [Mass/Vol] 13.0 mg/dL Normal 7-18 [facility] Comment on above: Performed By: #### M N, LIPID #### [facility] [address] [facility] [place] [address] LIPID PROFILE (FASTING)on CHOL/HDL RATIO 2.1 mg/dl Normal 3.7-5.6 [facility] Comment on above: Performed By: #### M N, LIPID #### [facility] [address] [facility] [place] [address] Cholesterol [Mass/Vol] 154 mg/dL Normal 0-200 [facility] Comment on above: Performed By: #### M N, LIPID #### [facility] [address] [facility] [place] [address] Cholesterol in HDL [Mass/Vol] 73 mg/dL Normal 40-60 [facility] Comment on above: Performed By: #### M N, LIPID #### [facility] [address] [facility] [place] [address] Cholesterol in LDL [Mass/Vol] 71 mg/dL Normal 0-130 [facility] Comment on above: Performed By: #### M N, LIPID #### [facility] [address] [facility] [place] [address] Triglyceride [Mass/Vol] 53 mg/dL Normal 0-150 [facility] Comment on above: Performed By: #### M N, LIPID #### [facility] [address] [facility] [place] [address] VLDL CALCULATION 11 mg/dl Normal 5-40 [facility] Comment on above: Performed By: #### M N, LIPID #### [facility] [address] [facility] [place] [address] VIT D 25 OHon 11-12-2021 VIT D 25 [place] 31.4 ng/mL Normal 30-100 [facility] Comment on above: Result Comment: Inte rpretation of VitD results: Adult: <20 ng/mL Deficient 20 - <30 ng/mL Insufficiency 30 - 100 ng/mL Sufficiency Pediatric: <15 ng/mL Deficient 15 - <20 ng/mL Insufficiency 20 - 100 ng/mL Sufficiency Performed By: #### V ITD #### [facility] [address] [place] [address] 25-hydroxyvitamin D [Mass/Vo l]on 02-08-2021 vit D 25 oh NG/mL [facility] (Lab) CBC W Auto Differential pane l (Bld)on 02-08-2021 bas0 % % [facility] (Lab) Basophils (Bld) [#/Vol] 0.0 10*3/uL [facility] (Lab) Eosinophils (Bld) [#/Vol] 0.2 10*3/uL [facility] (Lab) Eosinophils/100 WBC (Bld) 2.6 % [facility] (Lab) gran # K/uL [facility] (Lab) gran % % [facility] (Lab) Hematocrit (Bld) [Volume fraction] 40.2 % [facility] (Lab) Hemoglobin (Bld) [Mass/Vol] 13.2 g/dL [facility] (Lab) Lymphocytes (Bld) [#/Vol] 2.0 10*3/uL [facility] (Lab) Lymphocytes/100 WBC (Bld) 29.0 % [facility] (Lab) MCH (RBC) [Entitic mass] 32.9 pg [facility] (Lab) MCV (RBC) [Entitic vol] 91.1 fL [facility] (Lab) mean corpuscular HGB pg [facility] Monocytes (Bld) [#/Vol] 0.5 10*3/uL [facility] (Lab) Monocytes/100 WBC (Bld) 7.8 % [facility] (Lab) Platelet mean volume (Bld) [Entitic vol] 7.4 fL [facility] (Lab) Platelets (Bld) [#/Vol] 264 10*3/uL [facility] (Lab) RBC (Bld) [#/Vol] 4.42 10*6/uL [facility] (Lab) red cell distri width % [facility] WBC (Bld) [#/Vol] 7.0 10*3/uL [facility] (Lab) Comprehensive metabolic 2000 panelon 02-08-2021 Albumin [Mass/Vol] 3.5 g/dL [facility] (Lab) Albumin/Globulin [Mass ratio] 0.9 {ratio} Low [facility] (Lab) ALP [Catalytic activity/Vol] 79 U/L [facility] (Lab) ALT [Catalytic activity/Vol] 22 U/L [facility] (Lab) Anion gap [Moles/Vol] 9.1 mmol/L Low [facility] (Lab) Bilirubin [Mass/Vol] 0.3 mg/dL [facility] (Lab) Calcium [Mass/Vol] 8.8 mg/dL [facility] (Lab) Chloride [Moles/Vol] 108 mmol/L High [facility] (Lab) CO2 [Moles/Vol] 29.0 mmol/L [facility] (Lab) Creatinine [Mass/Vol] 0.70 mg/dL [facility] (Lab) GFR > 60.0 [facility] (Lab) GFR AM > 60.0 [facility] (Lab) globulin g/dL [facility] (Lab) Glucose [Mass/Vol] 91 mg/dL [facility] (Lab) Potassium [Moles/Vol] 3.9 mmol/L [facility] (Lab) Protein [Mass/Vol] 7.5 g/dL [facility] (Lab) SGOT/AST U/L [facility] (Lab) Sodium [Moles/Vol] 142 mmol/L [facility] (Lab) Urea nitrogen [Mass/Vol] 11.0 mg/dL [facility] (Lab) HbA1c HPLC (Bld) [Mass fract ion]on 02-08-2021 est avg glucose 114 [facility] (Lab) HbA1c (Bld) [Mass fraction] 5.6 % [facility] (Lab) Laboratory - Chemistry and C hemistry - challengeon 02-08-2021 Cholesterol [Mass/Vol] 167 mg/dL [facility] (Lab) Cholesterol in HDL [Mass/Vol] 72 mg/dL [facility] (Lab) Cholesterol in LDL [Mass/Vol] 80 mg/dL [facility] (Lab) Cholesterol.total/Choles terol in HDL [Mass ratio] 2.3 {ratio} [facility] (Lab) Prealbumin [Mass/Vol] 18.1 mg/dL Low [facility] (Lab) Triglyceride [Mass/Vol] 74 mg/dL [facility] (Lab) Laboratory - Coagulationon 0 02-08-2021 aPTT Coag (Bld) [Time] 24.5 s [facility] (Lab) INR Coag (Bld) [Relative time] 1.0 {INR} [facility] (Lab) PT Coag (PPP) [Time] 10.3 s [facility] (Lab) No Panel Informationon 02-08 VLDL calculation mg/dL [facility] (Lab) TSH Qnon 02-08-2021 thyroid stim hormone uIU/mL [facility] (Lab) 25-hydroxyvitamin D [Mass/Vo l]on 09-19-2020 vit D 25 oh NG/mL [facility] (Lab) Comprehensive metabolic 2000 panelon 09-19-2020 Albumin [Mass/Vol] 3.4 g/dL [facility] (Lab) Albumin/Globulin [Mass ratio] 0.9 {ratio} [facility] (Lab) ALP [Catalytic activity/Vol] 85 U/L [facility] (Lab) ALT [Catalytic activity/Vol] 20 U/L [facility] (Lab) Anion gap [Moles/Vol] 5.9 mmol/L Low [facility] (Lab) Bilirubin [Mass/Vol] 0.4 mg/dL [facility] (Lab) Calcium [Mass/Vol] 9.0 mg/dL [facility] (Lab) Chloride [Moles/Vol] 106 mmol/L [facility] (Lab) CO2 [Moles/Vol] 31.0 mmol/L [facility] (Lab) Creatinine [Mass/Vol] 0.80 mg/dL [facility] (Lab) GFR > 60.0 [facility] (Lab) GFR AM > 60.0 [facility] (Lab) globulin g/dL [facility] (Lab) Glucose [Mass/Vol] 87 mg/dL [facility] (Lab) Potassium [Moles/Vol] 3.9 mmol/L [facility] (Lab) Protein [Mass/Vol] 7.2 g/dL [facility] (Lab) SGOT/AST U/L Low [facility] (Lab) Sodium [Moles/Vol] 139 mmol/L [facility] (Lab) Urea nitrogen [Mass/Vol] 18.0 mg/dL [facility] (Lab) Laboratory - Chemistry and C hemistry - challengeon 09-19-2020 Cholesterol [Mass/Vol] 156 mg/dL [facility] (Lab) Cholesterol in HDL [Mass/Vol] 66 mg/dL [facility] (Lab) Cholesterol in LDL [Mass/Vol] 78 mg/dL [facility] (Lab) Cholesterol.total/Choles terol in HDL [Mass ratio] 2.3 {ratio} [facility] (Lab) Triglyceride [Mass/Vol] 58 mg/dL [facility] No Panel Informationon 09-19 VLDL calculation mg/dL [facility] (Lab) BMPon 01-27-2020 Anion gap [Moles/Vol] 6 mmol/L Normal 5-16 [facility] Comment on above: Order Comment: Campu s: M Performed By: #### L [id number], [id number] #### [facility] [place] [address] Calcium [Mass/Vol] 9.0 mg/dL Normal 8.5-10.5 [facility] Comment on above: Order Comment: Campu s: M Result Comment: NOTE NEW NORMAL RANGE DUE TO REAGENT CHANGE Performed By: #### L [id number], [id number] #### [facility] [address] [place] [address] Chloride [Moles/Vol] 108 mmol/L High 98-107 [facility] Comment on above: Order Comment: Campu s: M Performed By: #### L 500.08494, L500.48136 #### [facility] [place] [address] CO2 [Moles/Vol] 26.0 mmol/L Normal 21-32 [facility] Comment on above: Order Comment: Campu s: M Performed By: #### L 500.38163, L500.17683 #### [facility] [place] [address] Creatinine [Mass/Vol] 0.78 mg/dL Normal 0.510-0.950 [facility] Comment on above: Order Comment: Campu s: M Result Comment: Arely ents receiving either N-Acetylcysteine (NAC) or Metamizole prior to venipuncture, may have falsely depressed results. Performed By: #### L 500.75387, L500.81635 #### [facility] [place] [id number] Glucose [Mass/Vol] 87 mg/dL Normal 70-100 [facility] Comment on above: Order Comment: Campu s: M Result Comment: 70-1 00- Normal Fasting; 100-125 Impaired Fasting; greater than 126 on more than one result- Diabetes. ADA guidelines. Results may be falsely elevated after the administration of Sulfapyridine. Results may be falsely depressed after the administration of Sulfasalazine. Performed By: #### L 500.16986, L500.63156 #### [facility] [address] [place] [address] Potassium [Moles/Vol] 4.5 mmol/L Normal 3.5-5.1 [facility] Comment on above: Order Comment: Campu s: M Result Comment: Slig ht Hemolysis, Result may be affected. Performed By: #### L 500.60545, L500.29207 #### [facility] [address] [place] [address] Sodium [Moles/Vol] 140 mmol/L Normal 136-145 [facility] Comment on above: Order Comment: Campu s: M Performed By: #### L 500.82568, L500.04589 #### [facility] [place] [address] Urea nitrogen [Mass/Vol] 18 mg/dL Normal 7-26 [facility] Comment on above: Order Comment: Campu s: M Performed By: #### L 500.14144, L500.76400 #### [facility] [place] [id number] Urea nitrogen/Creatinine [Mass ratio] 23 mg/mg Normal 15-24 [facility] Comment on above: Order Comment: Shayna s: M Performed By: #### L 500.24788, L500.60376 #### [facility] [address] [place] [address] CARD.CATHon 01-27-2020 CARD.CATH [Embedded Image Not Available] [facility] Patient Name: RADHA HU [address] [facility] [place] Date of : [address] [place] [address] Unit Number: [id number] Cardiac Catheterization Patient Status: [facility] Attending Doctor: Homero Mcdaniels MD Dictated Date: 01/27/20906 Cardiac Catheterization Study Date: 01/27/20 Referring Physician: Mckinley Tobin MD Allergies: Coded Allergies: LATEX (Mild, RASH 06/16/15) ADHESIVE TAPE (From SILK TAPE) (06/16/15) Summary: Cardiac catheterization report: Reason for study: Chest pain with abnormal nuclear stress with reversible ischemia in the mid anterior wall without involvement of apex in January 2020. Past medical history includes CAD, coronary artery stent RCA, hyperlipidemia and morbid obesity. Procedure done: - Left heart catheterization - Selective coronary artery angiography - Left ventricle angiography - Right Femoral artery angiography - Starclose vascular closure device application to the femoral artery puncture site. Procedure technique: Informed consent was obtained prior to any sedation regarding cardiac catheterization and possible coronary revascularization. Alternatives, risks, benefits, and manner of procedure, were discussed in detail. Risks of procedure includes but not limited to sudden cardiac , heart attack, stroke, damage to the femoral artery, vein, nerve, kidney, medication side effects or allergic reaction etc. Patient agreed to proceed further with full understanding. Patient was brought in fasting state to the cardiac catheterization lab. Both groins were prepped with ChloroPrep solution and patient was draped in sterile fashion. Moderate sedation was administered using the small dose of Versed and fentanyl in small aliquots as necessary. 2% Lidocaine without epinephrine was used for local anesthetic purposes. Right Femoral artery access was obtained by modified Selidgner's technique with anterior wall puncture only. 6 Anguillan hemostatic sheath was inserted over wire in femoral artery . Arterial sheath was aspirated and flushed repeatedly as necessary during procedure. For left heart catheterization, 6 Anguillan catheters system was used. 6 Anguillan angle pigtail catheter was advanced over wire to the ascending aorta. Aortic valve was crossed without any difficulty. Proper left heart hemodynamics was measured. Left ventriculography was performed in GORE view . JL4 and JR4 catheters were selectively engaged in the left main and right coronary artery, respectively without any arterial dampening. Selective coronary artery angiography was performed in various views. Cardiac catheterization cine angiographic images were reviewed at the end of the diagnostic study. At the end of case, selective right Femoral artery angiography was performed. Right Common femoral artery is large-caliber vessel without any significant disease. The arterial stick site was above the bifurcation. Vascular Closure device was used with the standard precaution still patient had a mild oozing. Manual compression was applied for 5 minutes using QuikClot and adequate hemostasis was achieved. Patient tolerated the procedure well in cardiac catheterization laboratory without any immediate complication. Analysis of data: Left heart hemodynamics: Left ventricular systolic pressure 162 mm of Hg and left ventricular end-diastolic pressure 17 mm of Hg. There is no significant gradient across the aortic valve on aortic pullback. Left ventriculography: Left ventricle is normal in size with normal segmental wall motion and normal LV ejection fraction of 65 to 70%. Selective coronary artery angiography: Left main coronary artery: Large caliber short trunk without significant disease. Left circumflex artery: Codominant vessel. Large-caliber vessel in the proximal and mid/proximal segment with mild irregularity with 20 to 30% discrete plaque disease in proximal circumflex. Further down mid and distal circumflex is small to medium caliber vessel without significant disease. OM 1: Tiny caliber short vessel. OM 2: Principal OM branch. Large caliber elongated branching and secondary branching vessel with no significant disease in the main runoff. The first upper branch is very small and it has ostial 50% stenosis. The main runoff which is lower branch with further distal branching vessel, does not have any significant disease. OM 3: Tiny caliber short vessel. Left PDA: Tiny caliber short vessel. Distal OM: Tiny caliber short vessel. Left anterior descending artery: Mild calcification in proximal LAD. Proximal LAD large caliber vessel with eccentric 50% stenosis focal stenosis. Mid LAD medium to large caliber vessel with mild irregularity. Distal LAD small caliber vessel without significant disease. Diagonal 1: Tiny caliber medium in length vessel without significant disease. Diagonal 2: From proximal LAD: Principal diagonal branch. Small to medium caliber elongated vessel without significant disease. First major septal clinical psychologist: Very small caliber medium length vessel without significant disease. Right coronary artery: Codominant vessel. Large-caliber vessel proximal segment and medium to large caliber vessel in the mid and distal segment without significant disease. Mid RCA has mild diffuse in-stent restenosis of less than 40% without any significant angiographic stenosis. Right PDA: Small caliber elongated vessel without significant disease. RPL 1: Tiny caliber short vessel Distal RPL: Very small caliber medium in length branching vessel without significant disease. Conclusion: Normal LV ejection fraction of 65 to 70% without any wall motion abnormality. Borderline elevated LVEDP 17 mmHg. Nonobstructive coronary artery disease. Proximal LAD 50% discrete stenosis with mild calcification. Mild in-stent restenosis less than 40% in the mid RCA without any significant angiographic stenosis. Left circumflex artery, OM 2, subbranch (upper branch , very small sized vessel) has 50 to 60% ostial stenosis. Recommendation: -Continue aggressive medical management and cardiac risk factors modification. Disclaimer This dictation was created using voice recognition software. Phonetic and/or minor grammatical errors may exist. eSign Date and Time Homero Mcdaniels MD Verified/Reviewed by 01/27/20 0913 Normal [facility] CBCon 01-27-2020 Erythrocyte distribution width (RBC) [Ratio] 13.9 % Normal 11-14.5 [facility] Comment on above: Order Comment: Shayna s: M Performed By: #### L [id number] #### [facility] [address] [place] [address] Hematocrit (Bld) [Volume fraction] 42.8 % Normal 35.0-47.0 [facility] Comment on above: Order Comment: Shayna s: M Performed By: #### L 200.54378 #### [facility] [address] [place], [place] [address] Hemoglobin (Bld) [Mass/Vol] 13.4 g/dL Normal 11.5-15.5 [facility] Comment on above: Order Comment: Campu s: M Performed By: #### L [id number] #### [facility] [address] [place] [address] MCHC (RBC) [Mass/Vol] 31.3 g/dL Low 32.0-36.0 [facility] Comment on above: Order Comment: Campu s: M Performed By: #### L 200.50377 #### [facility] [address] [place] [address] MCV (RBC) [Entitic vol] 95.1 fL Normal 80.0-99.0 [facility] Comment on above: Order Comment: Campu s: M Performed By: #### L [id number] #### [facility] [address] [place] [address] Nucleated RBC/100 WBC (Bld) [Ratio] 0.0 % Normal Less than 1 [facility] Comment on above: Order Comment: Campu s: M Performed By: #### L 200.82658 #### [facility] [address] [place] [address] Platelet mean volume (Bld) [Entitic vol] 9.1 fL Low 9.4-12.4 [facility] Comment on above: Order Comment: Campu s: M Performed By: #### L 200.89000 #### [facility] [address] [place] [address] Platelets (Bld) [#/Vol] 269 K/CU MM Normal 150-450 [facility] Comment on above: Order Comment: Campu s: M Performed By: #### L 200.07929 #### [facility] [address] [place], [place] [id number] RBC (Bld) [#/Vol] 4.50 M/CU MM Normal 3.90-5.30 [facility] Comment on above: Order Comment: Campu s: M Performed By: #### L [id number] #### [facility] [address] [place] [address] WBC (Bld) [#/Vol] 8.9 K/CUMM Normal 4.5-11.0 [facility] Comment on above: Order Comment: Luis Danielu s: M Performed By: #### L [id number] #### [facility] [address] [place], [place] [id number] CCCASEon 01-27-2020 CARDIAC END OF CASE Normal [facility] CCCASE Directions to view CARDIAC END OF CASE REPORT in a PDF format To view the Cardiac END OF CASE report you must go to Clinical Review (PWM/Physician Desktop) and - Select the patient - Select the Vist the report is on - Click the Globe on the bottom left and the PDF report will launch (PDF's can't be viewed in [employer] directly) \\[email or web address] Normal [facility] GFR ESTon 01-27-2020 IF AMER Greater than 60 Normal [facility] Comment on above: Order Comment: Luis Danielu s: M Performed By: #### L 500.70058, L500.61259 #### [facility] [address] [place], [place] [id number] IF non-AFR AMER Greater than 60 Normal [facility] Comment on above: Order Comment: Luis Danielu s: M Performed By: #### L 500.61237, L500.17382 #### [facility] [address] [place] [address] PTon 01-27-2020 INR Coag (PPP) [Relative time] 0.99 {INR} Normal 0.9-1.1 [facility] Comment on above: Order Comment: REDRA WN SPECIMEN CG66 CLOTTED CALLED RON Result Comment: Ever mmended PT INR therapeutic range for mcfp and prophylactic therapy is 2.0 - 3.0. For heart valve and shunt patients the range is 2.5 - 3.5. Performed By: #### L 300.42666, L300.81973 #### [facility] [address] [place] [address] PT Coag (PPP) [Time] 10.6 s Normal 9.5-12.0 [facility] Comment on above: Order Comment: REDRA WN SPECIMEN CG66 CLOTTED CALLED RON Performed By: #### L 300.92046, L300.62763 #### [facility] [address] [place] [address] INR Coag (PPP) [Relative time] Normal 0.9-1.1 [facility] Comment on above: Order Comment: Shayna s: M Result Comment: Disr egard results. Specimen is clotted. Patient redraw has been requested. 01/27/2018: INR previously reported as: 0.95 Recommended PT INR therapeutic range for computer terminal operator and prophylactic therapy is 2.0 - 3.0. For heart valve and shunt patients the range is 2.5 - 3.5. Performed By: #### L 300.83284, L300.47376 #### [facility] [address] [place] [address] PT Coag (PPP) [Time] Normal 9.5-12.0 [facility] Comment on above: Order Comment: Shayna s: [place] Result Comment: Disr egard results. Specimen is clotted. Patient redraw has been requested. 01/27/20 0718: PTS previously reported as: 10.2 SECONDS Performed By: #### L 300.38966, L300.36134 #### [facility] [address] [place], [place] [id number] PTTon 01-27-2020 aPTT Coag (Bld) [Time] 27.2 s Normal 22.0-31.5 [facility] Comment on above: Order Comment: REDRA WN SPECIMEN CG66 CLOTTED CALLED RON Result Comment: Ther apeutic Heparin Reference Range: High Dose: 46-75 seconds (DVT/PE) Low Dose: 39-60 seconds (Acute Coronary Syndrome) For low molecular weight heparin or danaparoid, monitoring is often NOT necessary, but the heparin assay, Xa inhibition assay (send-out) may be used in certain circumstances, as the PTT is generally insensitive to the effect of these agents. Direct thrombin inhibitors are becoming more widely utilized and these drugs are often monitored using the PTT. Performed By: #### L 300.32040, L300.37245 #### [facility] [address] [place], [place] [id number] aPTT Coag (Bld) [Time] TNP Normal 22.0-31.5 [facility] Comment on above: Order Comment: Campu s: M Result Comment: Spec imen is clotted. Patient must be redrawn. Performed By: #### L 300.90917, L300.94821 #### [facility] [address] [place] [address] UA COMPLETEon 01-27-2020 UA LK ESTERASE 75 Normal NEGATIVE [facility] Comment on above: Order Comment: Campu s: M Performed By: #### L [id number] #### [facility] [address] [place] [address] UA WBC 16 WBC/HPF High 0-5 [facility] Comment on above: Order Comment: Campu s: M Performed By: #### L [id number] #### [facility] [address] [place] [address] Color (U) Yellow Normal [facility] Comment on above: Order Comment: Campu s: M Performed By: #### L [id number] #### [facility] [address] [place] [address]82 Glucose (U) [Mass/Vol] Negative Normal NORMAL [facility] Comment on above: Order Comment: Campu s: M Performed By: #### L 600.70756 #### [facility] [address] [place] [address] Mucus Ql (Urine sed) 1+ Normal NEGATIVE [facility] Comment on above: Order Comment: Campu s: M Performed By: #### L [id number] #### [facility] [address] [facility] [place] [address] SQUAMOUS EPIS 41 EPI/HPF High 0-5 [facility] Comment on above: Order Comment: Campu s: M Performed By: #### L [id number] #### [facility] [address] [place] [address] UA APPEARANCE Cloudy Normal CLEAR [facility] Comment on above: Order Comment: Campu s: M Performed By: #### L [id number] #### [facility] [address] [place] [address] UA BACTERIA TRACE Normal NONE [facility] Comment on above: Order Comment: Campu s: M Performed By: #### L [id number] #### [facility] [place] [address] UA BILIRUBIN Negative Normal NEGATIVE [facility] Comment on above: Order Comment: Campu s: M Performed By: #### L 600.59134 #### [facility] [place] [address] UA BLOOD SMALL Normal NEGATIVE [facility] Comment on above: Order Comment: Campu s: M Performed By: #### L [id number] #### [facility] [address] [place] [address] UA KETONE Negative Normal NEGATIVE [facility] Comment on above: Order Comment: Campu s: M Performed By: #### L [id number] #### [facility] [address] [place] [address] UA NITRITE Negative Normal NEGATIVE [facility] Comment on above: Order Comment: Campu s: M Performed By: #### L [id number] #### [facility] [address] [place] [address] UA PH 5.0 Normal 5-6 [facility] Comment on above: Order Comment: Campu s: M Performed By: #### L [id number] #### [facility] [address] [place] [address] UA PROTEIN Negative Normal NEGATIVE [facility] Comment on above: Order Comment: Campu s: M Performed By: #### L [id number] #### [facility] [address] [place] [address] UA RBC 4 RBC/HPF High 0-3 [facility] Comment on above: Order Comment: Campu s: M Performed By: #### L [id number] #### [facility] [place] [id number] UA SPEC GRAV 1.020 Normal 1.005-1.030 [facility] Comment on above: Order Comment: Campu s: M Performed By: #### L [id number] #### [facility] [address] [place] [address] UA UROBILINOGEN 2.0 Normal NORMAL [facility] Comment on above: Order Comment: Campu s: M Performed By: #### L [id number] #### [facility] [address] [place], [place] [id number] No Panel Information NEGATED: Highlighted row [facility] Vital Signs Date Time Vital Sign Value Performing Clinician Facility 10-14-2024 01:00-0400 Body height 158.75 cm Ramone Heyzapnathan [facility] 10-14-2024 01:00-0400 Body mass index (BMI) [Ratio] 47.7 kg/m2 Ramone Repp [facility] 10-14-2024 01:00-0400 Body temperature 98 [degF] Ramone Repnathan [facility] 10-14-2024 01:00-0400 Body weight 120.2 kg Ramone Rep [facility] 10-14-2024 01:00-0400 Diastolic blood pressure 70 mm[Hg] Ramone Repp [facility] 10-14-2024 01:00-0400 Heart rate 62 /min Ramone Repnathan [facility] 10-14-2024 01:00-0400 SaO2% (BldA) [Mass fraction] 96 % Ramone Rep [facility] 10-14-2024 01:00-0400 Systolic blood pressure 136 mm[Hg] Ramone Repnathan [facility] 09-06-2024 01:00-0400 Body height 158.75 cm Padmini Leong [facility] 09-06-2024 01:00-0400 Body mass index (BMI) [Ratio] 48.2 kg/m2 Padmini Leong [facility] 09-06-2024 01:00-0400 Body temperature 96.8 [degF] Padmini Leong [facility] 09-06-2024 01:00-0400 Body weight 121.56 kg Padmini Gomezkitty [facility] 09-06-2024 01:00-0400 Diastolic blood pressure 68 mm[Hg] Padmini Erasmo [facility] 09-06-2024 01:00-0400 Heart rate 62 /min Padminikameron Leong [facility] 09-06-2024 01:00-0400 SaO2% (BldA) [Mass fraction] 96 % Padmini Gomezkitty [facility] 09-06-2024 01:00-0400 Systolic blood pressure 148 mm[Hg] Padmini Jasonkitty [facility] 06-28-2024 10:48-0500 Body height 157.[address] Padmini Leong MD Work Phone: [facility] 06-28-2024 10:48-0500 Diastolic blood pressure 80 mm[Hg] Dr. Padmini Leong MD Work Phone: [facility] 06-28-2024 10:48-0500 Systolic blood pressure 144 mm[Hg] Dr. Padmini Leong MD Work Phone: [facility] 06-28-2024 10:43-0500 Body mass index (BMI) [Ratio] 49 kg/m2 Dr. Padmini Leong MD Work Phone: [facility] 02-11-2025 10:43-0500 Body weight 121.[address] Padmini Leong MD Work Phone: [facility] 06-28-2024 10:43-0500 Heart rate 70 /min Dr. Padmini Leong MD Work Phone: [facility] 06-28-2024 10:43-0500 Respiratory rate 20 /min Dr. Padmini Leong MD Work Phone: [facility] 06-28-2024 10:43-0500 SaO2% (BldA) [Mass fraction] 94 % Dr. Padmini Leong MD Work Phone: [facility] 05-24-2024 00:00-0500 Body height 158.75 cm [email or web address] [facility] 05-24-2024 00:00-0500 Body mass index (BMI) [Ratio] 47.2 kg/m2 [employer] [facility] 05-24-2024 00:00-0500 Body temperature 97 [degF] [facility] 05-24-2024 00:00-0500 Body weight 118.84 kg [employer] [facility] 05-24-2024 00:00-0500 Diastolic blood pressure 70 mm[Hg] [facility] 05-24-2024 00:00-0500 Heart rate 62 /min [employer] [facility] 05-24-2024 00:00-0500 SaO2% (BldA) [Mass fraction] 97 % Ervin Marin [facility] 05-24-2024 00:00-0500 Systolic blood pressure 112 mm[Hg] Ervin Marin [facility] 03-08-2024 01:00-0400 Body height 158.75 cm Padmini Leong [facility] 03-08-2024 01:00-0400 Body mass index (BMI) [Ratio] 47.7 kg/m2 Padmini Leong [facility] 03-08-2024 01:00-0400 Body temperature 97.4 [degF] Padmini Leong [facility] 03-08-2024 01:00-0400 Body weight 120.2 kg Padmini Leong [facility] 03-08-2024 01:00-0400 Diastolic blood pressure 76 mm[Hg] Padmini Leong [facility] 03-08-2024 01:00-0400 Heart rate 71 /min Padmini Leong [facility] 03-08-2024 01:00-0400 SaO2% (BldA) [Mass fraction] 96 % Padmini Leong [facility] 03-08-2024 01:00-0400 Systolic blood pressure 146 mm[Hg] Padmini Leong [facility] 09-02-2023 01:00-0400 Body height 158.75 cm Padmini Leong [facility] 09-02-2023 01:00-0400 Body mass index (BMI) [Ratio] 46.3 kg/m2 Padmini Leong [facility] 09-02-2023 01:00-0400 Body temperature 97.9 [degF] Padmini Leong [facility] 09-02-2023 01:00-0400 Body weight 116.57 kg Padmini Leong [facility] 09-02-2023 01:00-0400 Diastolic blood pressure 68 mm[Hg] Padmini Leong [facility] 09-02-2023 01:00-0400 Heart rate 68 /min Padmini Leong [facility] 09-02-2023 01:00-0400 SaO2% (BldA) [Mass fraction] 96 % Padmini Leong [facility] 09-02-2023 01:00-0400 Systolic blood pressure 140 mm[Hg] Padmini Leong [facility] 08-04-2023 20:29-0400 Diastolic blood pressure 74 mm[Hg] Dr. Keith Roman Work Phone: [facility] 08-04-2023 20:29-0400 Heart rate 70 /min Dr. Keith Roman Work Phone: [facility] 08-04-2023 20:29-0400 Respiratory rate 16 /min Dr. Keith Roman Work Phone: [facility] 08-04-2023 20:29-0400 SaO2% (BldA) [Mass fraction] 95 % Dr. Keith Roman Work Phone: [facility] 08-04-2023 20:29-0400 Systolic blood pressure 156 mm[Hg] Dr. Keith Roman Work Phone: [facility] 08-04-2023 19:51-0400 Body temperature 98.6 [degF] Dr. Keith Roman Work Phone: [facility] 08-04-2023 18:30-0400 Body height 157.[address] Keith Roman Work Phone: [facility] 07-10-2023 00:00-0500 Body height 158.75 cm [employer] [facility] 07-10-2023 00:00-0500 Body mass index (BMI) [Ratio] 46 kg/m2 Ramone Heyzap [facility] 07-10-2023 00:00-0500 Body temperature 97.5 [degF] Ramone Heyzapp [facility] 07-10-2023 00:00-0500 Body weight 116.03 kg Ramone Repp [facility] 07-10-2023 00:00-0500 Diastolic blood pressure 70 mm[Hg] Ramone Repp [facility] 07-10-2023 00:00-0500 Heart rate 66 /min Ramone Repp [facility] 07-10-2023 00:00-0500 SaO2% (BldA) [Mass fraction] 94 % Ramone Repp [facility] 07-10-2023 00:00-0500 Systolic blood pressure 128 mm[Hg] Ramone Repp [facility] 06-08-2023 09:38-0500 Body height 157.48 cm [facility] 06-08-2023 09:38-0500 Body weight 117.02 kg [facility] 05-28-2023 16:03-0500 Body mass index (BMI) [Ratio] 47.5 kg/m2 [facility] 05-28-2023 16:03-0500 Body temperature 98.4 [degF] [facility] 05-28-2023 16:03-0500 Body weight 117.93 kg [facility] 05-28-2023 16:03-0500 Diastolic blood pressure 68 mm[Hg] [facility] 05-28-2023 16:03-0500 Heart rate 66 /min [facility] 05-28-2023 16:03-0500 Respiratory rate 14 /min [facility] 05-28-2023 16:03-0500 SaO2% (BldA) [Mass fraction] 95 % [facility] 05-28-2023 16:03-0500 Systolic blood pressure 134 mm[Hg] [facility] 05-28-2023 08:23-0500 Body mass index (BMI) [Ratio] 47.2 kg/m2 [facility] 03-04-2023 12:55-0400 Body height 157.48 cm [facility] 03-04-2023 12:55-0400 Body mass index (BMI) [Ratio] 47.2 kg/m2 [facility] 03-04-2023 12:55-0400 Body weight 117.02 kg [facility] 03-04-2023 12:55-0400 Diastolic blood pressure 77 mm[Hg] [facility] 03-04-2023 12:55-0400 Heart rate 64 /min [facility] 03-04-2023 12:55-0400 Respiratory rate 16 /min [facility] 03-04-2023 12:55-0400 Systolic blood pressure 140 mm[Hg] [facility] 03-02-2023 01:00-0400 Body height 158.75 cm Padmini Leong [facility] 03-02-2023 01:00-0400 Body mass index (BMI) [Ratio] 46.8 kg/m2 Padmini Leong [facility] 03-02-2023 01:00-0400 Body temperature 98 [degF] Padmini Leong [facility] 03-02-2023 01:00-0400 Body weight 117.93 kg Padmini Leong [facility] 03-02-2023 01:00-0400 Diastolic blood pressure 70 mm[Hg] Padmini Leong [facility] 03-02-2023 01:00-0400 Heart rate 67 /min Padmini Leong [facility] 03-02-2023 01:00-0400 SaO2% (BldA) [Mass fraction] 95 % Padmini Leong [facility] 03-02-2023 01:00-0400 Systolic blood pressure 126 mm[Hg] Padmini Leong [facility] 09-19-2022 01:00-0400 Body height 158.75 cm Ervin Marin [facility] 09-19-2022 01:00-0400 Body mass index (BMI) [Ratio] 4.8 kg/m2 [employer] [facility] 09-19-2022 01:00-0400 Body mass index (BMI) [Ratio] 47.5 kg/m2 [employer] [facility] 09-19-2022 01:00-0400 Body temperature 97 [degF] Ervin Marin [facility] 09-19-2022 01:00-0400 Body weight 11.97 kg Ervin Marin [facility] 09-19-2022 01:00-0400 Body weight 119.75 kg Ervin Marin [facility] 09-19-2022 01:00-0400 Diastolic blood pressure 72 mm[Hg] Ervin Marin [facility] 09-19-2022 01:00-0400 Heart rate 67 /min Ervin Marin [facility] 09-19-2022 01:00-0400 SaO2% (BldA) [Mass fraction] 97 % Ervin Marin [facility] 09-19-2022 01:00-0400 Systolic blood pressure 140 mm[Hg] Evrin Marin [facility] 08-18-2022 01:00-0400 Body height 158.75 cm Padmini Leong [facility] 08-18-2022 01:00-0400 Body mass index (BMI) [Ratio] 48.6 kg/m2 Padmini Leong [facility] 08-18-2022 01:00-0400 Body temperature 97 [degF] Padmini Leong [facility] 08-18-2022 01:00-0400 Body weight 122.47 kg Padmini Leong [facility] 08-18-2022 01:00-0400 Diastolic blood pressure 74 mm[Hg] Padmini Leong [facility] 08-18-2022 01:00-0400 Heart rate 66 /min Padmini Leong [facility] 08-18-2022 01:00-0400 SaO2% (BldA) [Mass fraction] 95 % Padmini Leong [facility] 08-18-2022 01:00-0400 Systolic blood pressure 132 mm[Hg] Padmini Leong [facility] 02-25-2022 21:41-0400 Respiratory rate 18 /min [facility] Work Phone: 02-25-2022 19:43-0400 Body height 157.48 cm [facility] Work Phone: 02-25-2022 19:43-0400 Body mass index (BMI) [Ratio] 48.4 kg/m2 [facility] Work Phone: 02-25-2022 19:43-0400 Body temperature 97 [degF] [facility] Work Phone: 02-25-2022 19:43-0400 Body weight 120.2 kg [facility] Work Phone: 02-25-2022 19:43-0400 Diastolic blood pressure 75 mm[Hg] [facility] Work Phone: 02-25-2022 19:43-0400 Heart rate 61 /min [facility] Work Phone: 02-25-2022 19:43-0400 SaO2% (BldA) [Mass fraction] 96 % [facility] Work Phone: 02-25-2022 19:43-0400 Systolic blood pressure 168 mm[Hg] [facility] Work Phone: 10-02-2021 01:00-0400 Body height 158.75 cm Padminikameron GomezPubler [facility] 10-02-2021 01:00-0400 Body mass index (BMI) [Ratio] 47.9 kg/m2 Padminikameron [employer] [facility] 10-02-2021 01:00-0400 Body temperature 98.1 [degF] Padminikameron [employer] [facility] 10-02-2021 01:00-0400 Body weight 120.66 kg Padminikameron GomezPubler [facility] 10-02-2021 01:00-0400 Diastolic blood pressure 76 mm[Hg] Padminikameron [employer] [facility] 10-02-2021 01:00-0400 Heart rate 70 /min Padminikameron GomezPubler [facility] 10-02-2021 01:00-0400 SaO2% (BldA) [Mass fraction] 98 % [employer]admin[employer] [facility] 10-02-2021 01:00-0400 Systolic blood pressure 148 mm[Hg] Padmini Leong [facility] 04-03-2021 00:00-0500 Body height 158.75 cm Padmini Leong [facility] 04-03-2021 00:00-0500 Body mass index (BMI) [Ratio] 48.7 kg/m2 Padmini Leong [facility] 04-03-2021 00:00-0500 Body temperature 97.2 [degF] Padmini Leong [facility] 04-03-2021 00:00-0500 Body weight 122.83 kg Padmini Leong [facility] 04-03-2021 00:00-0500 Diastolic blood pressure 62 mm[Hg] Padmini Leong [facility] 04-03-2021 00:00-0500 Heart rate 86 /min Padmini Leong [facility] 04-03-2021 00:00-0500 SaO2% (BldA) [Mass fraction] 96 % Padmini Leong [facility] 04-03-2021 00:00-0500 Systolic blood pressure 138 mm[Hg] Padmini Leong [facility] 03-04-2021 01:00-0400 Body height 158.75 cm Ramone Repp [facility] 03-04-2021 01:00-0400 Body mass index (BMI) [Ratio] 48.7 kg/m2 Ramone Repp [facility] 03-04-2021 01:00-0400 Body temperature 97.5 [degF] Ramone Repp [facility] 03-04-2021 01:00-0400 Body weight 122.74 kg Ramone Repp [facility] 03-04-2021 01:00-0400 Diastolic blood pressure 80 mm[Hg] Ramone Repp [facility] 03-04-2021 01:00-0400 Heart rate 76 /min Ramone Repp [facility] 03-04-2021 01:00-0400 SaO2% (BldA) [Mass fraction] 95 % Ramone Repp [facility] 03-04-2021 01:00-0400 Systolic blood pressure 126 mm[Hg] Ramone Repp [facility] 09-26-2020 01:00-0400 Body height 158.75 cm Padmini Erasmo [facility], [facility] 09-26-2020 01:00-0400 Body mass index (BMI) [Ratio] 47.2 kg/m2 Padmini Leong [employer] YOHANA JOSEPH 09-26-2020 01:00-0400 Body temperature 97.5 [degF] Padmini Leong [facility], YOHANA JOSEPH 09-26-2020 01:00-0400 Body weight 118.84 kg Padmini Leong [facility], YOHANA JOSEPH 09-26-2020 01:00-0400 Diastolic blood pressure 82 mm[Hg] Padmini Leong [facility], YOHANA JOSEPH 09-26-2020 01:00-0400 Diastolic blood pressure 68 mm[Hg] Padmini Leong [facility], YOHANA JOSEPH 09-26-2020 01:00-0400 Heart rate 72 /min Padmini Leong [facility], YOHANA JOSEPH 09-26-2020 01:00-0400 SaO2% (BldA) [Mass fraction] 97 % Padmini Leong [facility], [facility] [employer] 09-26-2020 01:00-0400 Systolic blood pressure 138 mm[Hg] Padmini Leong [facility], [employer] [employer] 09-26-2020 01:00-0400 Systolic blood pressure 140 mm[Hg] Padmini Leong [employer] Encounters Encounter Date Encounter Type Care Provider Facility Start: 10-14-2024 Ramone Bergnathan [employer] [facility] Start: 09-06-2024 Padmini eLong [employer] [facility] Start: 09-02-2024 End: 09-02-[address] Padmini Leong MD Work Phone: [facility] Work Phone: Start: 09-02-2024 End: 09-02-[address] Padmini Leong MD -Laboratory Work Phone: Start: 09-02-2024 End: 09-02-2024 ambulatory Padmini Leong Facility:[facility] Start: 06-28-2024 End: 06-28-2024 Patient encounter procedure Shantal ALEMAN -[facility] Work Phone: Start: 06-28-2024 End: 06-28-2024 ambulatory Shantal ALEMAN Facility:[facility] Start: 06-27-2024 End: 06-27-2024 Patient encounter procedure Teja LAWSON -Laboratory Work Phone: Start: 06-27-2024 End: 06-27-2024 ambulatory Padmini Leong Facility:[facility] Start: 05-24-2024 Ervin Marin [employer] [facility] [employer] Start: 05-02-2024 End: 05-02-2024 ambulatory Padmini Leong Facility:[facility] Start: 03-15-2024 ambulatory Padmini Parrasedrick Facili ty:[facility] Start: 03-14-2024 ambulatory Airella Conway [employer]ILLIARD PARL[employer] MANAGER Facili ty:[facility] Start: 03-14-2024 End: 03-14-2024 ambulatory Ariella Conway BILLIARD PARLOR MANAGER Facility:[facility] Start: 03-08-2024 Adult health examination Padmini Leong [employer] [facility] Start: 03-08-2024 Padminikameron Gomezavrilsedrick [employer] [facility] [employer] Start: 03-07-2024 End: 03-07-2024 ambulatory Padmini Gomezavrilsedrick Facility:[facility] Start: 03-01-2024 End: 03-01-2024 ambulatory Ariella Conway BILLIARD PARLOR MANAGER Facility:[facility] Start: 02-25-2024 End: 02-25-2024 ambulatory BRITTNI PALENCIA Facility:[facility] Start: 02-11-2024 End: 02-11-2024 ambulatory BRITTNI PALENCIA Facility:[facility] Start: 11-25-2023 End: 11-25-2023 ambulatory Padmini Leong Facility:[facility] Start: 10-06-2023 End: 10-06-[address] [facility] Start: 09-02-2023 Padmini Gomezavrilsedrick [employer] [facility] Start: 08-20-2023 End: 08-21-[address] YVONNE OLEARY DPM Facility:[facility] Start: 08-20-2023 End: 08-20-[address] YVONNE OLEARY DPM [facility] Start: 08-04-2023 End: 08-04-2023 Emergency department patient visit Dr. Keith Roman Work Phone: [facility]-Emergency Department Work Phone: Start: 07-31-[address] Keith Roman Work Phone: [facility]-Physical Therapy Work Phone: Start: 07-10-2023 Admission to [facility] [place] Ramone Weems [employer] [facility] [employer] Start: 07-10-2023 Ramone Repp [employer] [facility] [employer] Start: 06-30-2023 End: 06-30-[address] Keith Roman Work Phone: [facility] Work Phone: Start: 06-30-2023 End: 06-30-[address] Keith Roman Work Phone: [facility]-Laboratory Work Phone: Start: 06-08-2023 End: 06-08-2023 Admission to same day surgery [facility]-Transmission Systems Operator/Special Procedures Work Phone: Start: 06-08-2023 End: 06-08-2023 ambulatory [facility] Work Phone: Start: 05-28-2023 End: 05-28-2023 Patient encounter procedure [facility] Work Phone: Start: 05-19-2023 Non-patient / Non-visit PADMINI WHITESIDE [facility] Start: 04-14-2023 Non-patient / Non-visit PADMINI WHITESIDE [facility] Work Phone: Start: 04-13-2023 Non-patient / Non-visit PADMINIKAMERON WHITESIDE [facility] Work Phone: Start: 04-13-2023 End: 04-13-2023 ambulatory PADMINI RODOCOY [facility] Work Phone: Start: 04-13-2023 End: 04-13-2023 Patient encounter procedure PADMINI LEONG [facility]-Cardiovascular Services Work Phone: Start: 03-05-2023 End: 03-06-[address] YVONNE OLEARY DPM Facility:[facility] Start: 03-05-2023 End: 03-05-[address] YVONNE OLEARY DPM [facility] Start: 03-04-2023 End: 03-04-2023 Patient encounter procedure PADMINI LEONG [facility] Work Phone: Start: 03-02-2023 Adult health examination Padmini Leong [employer] Start: 03-02-2023 Padmini Leong [employer] Start: 02-25-2023 End: 02-25-2023 ambulatory [facility] Work Phone: Start: 02-25-2023 End: 02-25-2023 Patient encounter procedure [facility]Laboratory[facility] Start: 02-11-2023 Padmini Leong [employer] [facility] Start: 09-19-2022 ambulatory Padmini Leong Facili ty:[facility] Start: 09-19-2022 Office outpatient vi sit 15 minutes [employer] [facility] [facility] Start: 09-19-2022 [employer] [facility] Start: 08-18-2022 Padmini Leong [facility] Start: 08-07-2022 ambulatory Padmini Leong Facili ty:[facility] Start: 02-25-2022 End: 02-25-2022 Emergency department patient visit [facility]-Emergency Department Start: 11-12-2021 ambulatory Padmini Leong Facili ty:[facility] Start: 10-02-2021 Opscpy extnd rta drawing & scl deprsn i&r uni/bi Padmini Leong [facility] Start: 04-03-2021 Opscpy extnd rta drawing & scl deprsn i&r uni/bi Padmini Leong [facility] Start: 03-04-2021 Opscpy extnd rta drawing & scl deprsn i&r uni/bi Ramone Repp [facility] Start: 09-26-2020 Opscpy extnd rta drawing & scl deprsn i&r uni/bi Padmini Leong [facility] Start: 06-15-2019 End: 06-15-2019 ambulatory Vonnie Amarilys Dyerel Facility:[facility] Procedures Date Procedure Procedure Detail Performing Clinician Start: 09-06-2024 End: 09-06-2024 Screening for malignant neoplasm of colon Padmini Parrasedrick Start: 09-06-2024 End: 09-06-2024 Screening mammography Padmini Leong Start: 09-02-2024 Vitamin D, 25-hydroxy measurement Dr. Ash Leong MD Work Phone: Comment on above: Vitamin D StatusDeficiency: <20 ng/mL (5 0nmol/L)Insufficiency: 20-30 ng/mL (50-75 nmol/L)Sufficiency: 30-100 ng/mL (75-250 nmol/L)Toxicity: >100 ng/mL (>250 nmol/L) Start: 06-28-2024 Evaluation of diagnostic study results Dr. Padmini Leong MD Work Phone: Start: 06-27-2024 Measurement of renal function Dr. Padmini Leong MD Work Phone: Comment on above: GFR Calc Start: 03-08-2024 End: 03-08-2024 Depression screening Padmini Leong Start: 09-02-2023 End: 09-02-2023 Screening mammography Padmini Leong Start: 08-04-2023 CT of abdomen and pelvis without contrast Dr. Shahori Work Phone: Start: 06-08-2023 Ramone Faustina Start: 05-13-2023 Plain chest X-ray PADMINI LEONG Start: 04-13-2023 Cardiovascular stress test using pharmacologic stress agent PADMINI LEONG Start: 03-02-2023 End: 03-02-2023 Depression screening Padmini Leong Start: 08-18-2022 End: 08-18-2022 Screening mammography Padmini Leong Start: 02-25-2022 Radiography of ankle Start: 02-25-2022 Radiologic examination of knee Start: 03-14-2021 Padmini Leong Start: 03-04-2021 End: 03-04-2021 Pre-surgery evaluation Ramone Repp Start: 01-27-2020 Cardiac catheterization Start: 01-27-2020 Ecg routine ecg w/least 12 lds i&r only Start: 06-18-2019 Neuroplasty &/transpos median nrv carpal tunne Padmini Leong Start: 06-15-2019 Hysteroscopy Padmini Leong Start: 07-16-2018 Padmini Leong Start: 07-16-2017 Padmini Leong Start: 02-06-2016 Esophagogastroduodenoscopy Padmini dubose Start: 06-18-2015 Padmini Leong Start: 05-18-2014 Colonoscopy Padmini Leong Start: 05-18-2009 Percutaneous transluminal coronary angioplasty [PTCA] Padmini Leong Plan of Treatment Date Care Activity Detail Author Start: 03-07-2025 Medicare AWV2 Medicare AWV2 [employer] Start: 10-14-2024 Prob/Focused Visit Prob/Focused Visit [employer] Start: 10-14-2024 Patient encounter procedure chopper feeder referral [facility] Start: 10-14-2024 urinalysis, dipstick [facility] [place] Start: 09-06-2024 20 MIN VISIT 20 MIN VISIT [employer] Start: 09-06-2024 25-Hydroxyvitamin D3+25-Hydroxyvitamin D2 [Mass/volume] in Serum or Plasma [facility] (Scheduling) Start: 09-06-2024 Comprehensive metabolic 2000 panel - Serum or Plasma [facility] (Scheduling) Start: 09-06-2024 Drugs of abuse 7 and Alcohol and Tricyclics panel - Urine by Screen method [facility] (Scheduling) Start: 09-06-2024 Lipid 1996 panel - Serum or Plasma [facility] (Scheduling) Start: 09-06-2024 MG Breast - bilateral Screening [facility] Start: 09-06-2024 Noninvasive colorectal cancer DNA and occult blood screening [Presence] in Stool [facility] (Cologuard Orders Only) Start: 09-06-2024 [employer] Start: 05-24-2024 Prob/Focused Visit Prob/Focused Visit [employer] Start: 05-24-2024 [employer] Start: 03-08-2024 Medicare AWV2 Medicare AWV2 [employer] Start: 03-08-2024 25-Hydroxyvitamin D3+25-Hydroxyvitamin D2 [Mass/volume] in Serum or Plasma [facility] (Scheduling) Start: 03-08-2024 CBC W Differential panel, method unspecified - Blood [facility] (Scheduling) Start: 03-08-2024 Comprehensive metabolic 2000 panel - Serum or Plasma [facility] (Scheduling) Start: 03-08-2024 Lipid 1995 panel - Serum or Plasma [facility] (Scheduling) Start: 03-08-2024 Thyrotropin [Units/volume] in Serum or Plasma [facility] (Scheduling) Start: 09-02-2023 20 MIN VISIT 20 MIN VISIT [employer] Start: 09-02-2023 25-Hydroxyvitamin D3+25-Hydroxyvitamin D2 [Mass/volume] in Serum or Plasma [facility] (Scheduling) Start: 09-02-2023 Comprehensive metabolic 1999 panel - Serum or Plasma [facility] (Scheduling) Start: 09-02-2023 Drugs of abuse 7 and Alcohol and Tricyclics panel - Urine by Screen method [facility] (Scheduling) Start: 09-02-2023 Lipid 1995 panel - Serum or Plasma [facility] (Scheduling) Start: 09-02-2023 MG Breast - bilateral Screening [facility] (Central Scheduling) Start: 08-04-2023 [facility] Start: 07-10-2023 PREOPERATIVE CLEARANCE PREOPERATIVE CLEARANCE INAPPIN Start: 07-10-2023 Xanax 0.25 mg tablet [facility] Start: 06-08-2023 Patient discharge [facility] Start: 03-02-2023 Medicare AWV2 Medicare AWV2 [employer] Start: 03-02-2023 25-Hydroxyvitamin D3+25-Hydroxyvitamin D2 [Mass/volume] in Serum or Plasma [facility] (Scheduling) Start: 03-02-2023 CBC W Auto Differential panel - Blood [facility] (Scheduling) Start: 03-02-2023 Comprehensive metabolic 1999 panel - Serum or Plasma [facility] (Scheduling) Start: 03-02-2023 Lipid 1996 panel - [facility] or [facility] (Scheduling) Start: 03-02-2023 Thyrotropin [Units/volume] in Serum or Plasma [facility] (Scheduling) Start: 02-11-2023 Nursing evaluation of patient and report Nurse Visit [facility] Start: 02-11-2023 Influenza virus A and B RNA and SARS-CoV-2 (COVID-19) N gene panel - Respiratory specimen by MADAN with probe detection In-Office Order Start: 09-19-2022 Patient encounter procedure SAME DAY URGENT VISIT [facility] Start: 09-19-2022 XR Chest 2 Views [facility] (Scheduling) Start: 09-19-2022 [employer] Start: 08-18-2022 20 MIN VISIT 20 MIN VISIT [employer] Start: 08-18-2022 25-Hydroxyvitamin D3+25-Hydroxyvitamin D2 [Mass/volume] in Serum or Plasma [facility] (Scheduling) Start: 08-18-2022 Comprehensive metabolic 1999 panel - Serum or Plasma [facility] (Scheduling) Start: 08-18-2022 Drugs of abuse 7 and Alcohol and Tricyclics panel - Urine by Screen method [facility] (Scheduling) Start: 08-18-2022 Lipid 1996 panel - Serum or Plasma [facility] (Scheduling) Start: 08-18-2022 MG Breast - bilateral Screening [facility] Start: 08-18-2022 Patient encounter procedure physical therapist referral [facility] Start: 08-18-2022 Xanax 0.25 mg tablet [place] [email or web address] Start: 11-15-2021 20 MIN VISIT 20 MIN VISIT [employer] Start: 10-02-2021 Nursing evaluation of patient and report Nurse Visit [facility] Start: 10-02-2021 20 MIN VISIT 20 MIN VISIT [employer] Start: 04-03-2021 CMP, serum or plasma [facility] (Scheduling) Start: 04-03-2021 lipid panel, [facility] (Scheduling) Start: 04-03-2021 toxicology screen, urine [facility] (Scheduling) Start: 04-03-2021 vitamin D, 25-hydroxy, total, serum [facility] (Scheduling) Start: 04-03-2021 20 MIN VISIT 20 MIN VISIT [place] [employer], [facility] Start: 03-04-2021 PREOPERATIVE CLEARANCE PREOPERATIVE CLEARANCE [place] [employer] Start: 09-26-2020 CBC W Auto Differential panel - Blood [facility] (Scheduling) Start: 09-26-2020 CMP, serum or [facility] (Scheduling) Start: 09-26-2020 lipid panel, [facility] (Scheduling) Start: 09-26-2020 TSH, serum or [facility] (Scheduling) Start: 09-26-2020 vitamin D, 25-hydroxy, total, [facility] (Scheduling) Start: 09-26-2020 20 MIN VISIT [place] [facility] [employer] [facility] Cholecystectomy [place] [employer], [facility] Other bilateral liga tion and division of fallopian tubes Tubal Ligation [place] [employer], [facility] Work Phone: Patient Education [facility] Patient referral [facility] Work Phone: Immunizations Immunization Date Immunization Notes Care Provider Amadeo pepe 03-08-2024 Seasonal trivalent influenza vaccine, adjuvanted, preservative free Padmini Rodocoy [facility] 03-02-2023 Fluad Quad (65yr up)(PF) 60 mcg (15 mcg x 4)/0.5mL IM syringe Padmini Rodocoy [facility] 07-10-2021 SARS-COV-2 (COVID-19 ) vaccine, mRNA, spike protein, LNP, preservative free, 100 mcg/0.5mL dose Padmini Rodocoy [facility] 04-03-2021 Fluad Quad (65yr up)(PF) 60 mcg (15 mcg x 4)/0.5mL IM syringe Padmini Rodocoy [facility] 08-22-2020 SARS-COV-2 (COVID-19 ) vaccine, mRNA, spike protein, LNP, preservative free, 100 mcg/0.5mL dose Padmini Rodocoy [facility] 07-20-2020 SARS-COV-2 (COVID-19 ) vaccine, mRNA, spike protein, LNP, preservative free, 100 mcg/0.5mL dose Padmini Rodocoy [employer] [facility] 03-28-2020 Seasonal trivalent influenza vaccine, adjuvanted, preservative free Padmini Rodocoy [employer] [facility] 03-30-2019 Seasonal trivalent influenza vaccine, adjuvanted, preservative free Padmini Rodocoy [employer] [facility] 01-28-2018 Seasonal trivalent influenza vaccine, adjuvanted, preservative free Padmini Rodocoy [facility] 03-11-2017 influenza, injectabl e, quadrivalent, contains preservative Padmini Rodocoy [facility] 03-11-2017 pneumococcal conjuga te vaccine, 13 valent Padmini Rodocoy [facility] 11-15-2016 tetanus toxoid, adsorbed Bozena kameron Rodocoy [facility] 02-21-2016 influenza, seasonal, injectable Padmini Rodocoy [facility] 02-21-2016 pneumococcal polysaccharide vaccine, 23 valent Padmini Rodocoy [facility] [employer] [facility] [employer] Payers Date Payer Category Payer Medicare [id number] 2019 Medicare [id number] 2019 Self-pay 1950 Unknown [id number] 2.16.8 [id number] 1950 Unknown [id number] 2.16.8 [id number] Medicare [id number] Medicare MEDICARE PART A B [id number] Unknown [id number] 2.16.84 [id number] Unknown [id number] 2.16.8 [id number] Unknown [id number] 2.16.8 40.1.123750.3.579.2.630 Unknown [id number] 2.16.8 40.1.060384.3.579.2.630 Unknown [id number] 2.16.8 40.1.427102.3.579.2.462 Unknown [id number] 2.16.8 40.1.842977.3.579.2.462 Unknown [id number] 2.16.8 40.1.679642.3.579.2.462 Unknown [id number] 2.16.8 40.1.870172.3.579.2.462 Unknown [id number] 2.16.8 40.1.723148.3.579.2.462 Unknown [id number] 2.16.8 40.1.714735.3.579.2.462 Unknown [id number] 2.16.8 40.1.812700.3.579.2.462 Unknown [id number] 2.16.8 40.1.085366.3.579.2.462 Unknown [id number] 2.16.8 40.1.595778.3.579.2.462 Unknown [id number] 2.16.8 40.1.739284.3.579.2.462 Unknown [id number] 2.16.8 40.1.674449.3.579.2.462 Unknown [id number] 2.16.8 [id number] Unknown [id number] 2.16.8 [id number] Social History Date Type Detail Facility Start: 08-04-2023 Tobacco Smoking [facility] Never Smoker [facility] Sex Assigned At Unknown [facility] [employer], [facility] Start: 02-25-2022 End: 08-04-2023 Tobacco smoking status AZIS Unknown if ever smoked [facility] Start: 1950 Sex Assigned At Female W [facility] Start: 09-07-2024 Sex Female (finding) [facility] Medical Equipment Procedure Code Equipment Code Equipment Original Text Equi pment Identifier Dates Procedure Implant ([id number]) Clinical Notes 08-05-2011 to 10-14-2024 Note Date & Type Note Facility 10-14-2024 Reason for referr al (narrative) [facility] 04-22-2025 Evaluation note* Encounter Date Assessment Date Assessment LastModified by Organization Details LastModified Time 09/06/2024 09/06/2024 nl DEXA 2019 [email or web address] Not available 0 09/06/2024 14:16:30 [facility] 02-11-2025 Evaluation note* Diagnosis Onset Date Resolution Status Admit Date Coronary artery disease acute F ebruary 2024 10:37am Essential (primary) hypertension acute June 28, 2 025 10:37am Fatigue acute June 28, 2024 10:37am Mixed hyperlipidemia acute Febr uary 2024 10:37am [facility] Work Phone: 1(655) 202-742210-22-2024 Evaluation note* Encounter Date Assessment Date Assessment LastModified by Organization Details LastModified Time 03/08/2024 03/08/2024 nl DEXA 2019 [email or web address] Not available 1 14:41:03 [facility] 04-17-2024 Evaluation note* Encounter Date Assessment Date Assessment LastModified by Organization Details LastModified Time 09/02/2023 09/02/2023 established w/ [facility] [place] [facility] Not available 09/02/2023 14:36:19 [facility] 03-19-2024 Hospital Discharge instructions Additional Instructions Please follow-up with your primary care physician if not improving in 3 to 5 days.[facility] Work Phone: 1(850) 568-899301-03-2024 History and physical note Author Keith Roman [facility] May 20, 2023 11:48am Note Date/Time May 19, 2023 4: 16pm [facility] Medical Records Department [address] [place] [address] History & Physical Exam 05/19/23 1608 MR#: [id number] Acct: [id number] Name: RADHA HU Judy Rep #:[id number] : 1950 72 From: Keith Roman MD PCP: PADMINI LEONG Status:PRE [facility] Location: [facility] History and Physical Date of Admission: 05/29/23 This is a 72-year-old lady who presents today for a cardiac catheterization, following an abnormal stress test. She has a history of coronary artery disease,hypertension, hyperlipidemia status post PCI remotely who underwent a pharmacologic stress test in January 2020 demonstrating apical ischemia. She subsequently underwent a cardiac catheterization with demonstrated preserved left ventricular systolic function, left main coronary artery which was noted priya normal, left circumflex artery with 20 to 30% discrete proximal plaque, second obtuse marginal branch with ostial 50% stenosis, tiny third obtuse marginal branch posterior descending artery and obtuse marginal. The left anterior descending artery had mild calcification in the proximal LAD with an eccentric 50% stenosis and the vessel continued with no high-grade stenosis. The right coronary artery was previously stented and had mild diffuse 40% in-stent stenosis. Medical therapy was recommended. She has continued the same and has done well denying any chest pain or shortness of breath or paroxysmal nocturnal dyspnea or pedal edema. She does have some dyspnea on exertion however. Her blood pressure has been under good control. She presents here ghassan evaluation and continued care because she is relocating to the area. Intake Vital Signs See EMR Allergies See EMR Medications See EMR PFSH Medical History Barretts esophagus Carpal tunnel syndrome Cervical disc disorder Chronic GERD Coronary arteriosclerosis in viejas artery Coronary artery disease Depressive disorder DJD (degenerative joint disease) Essential (primary) hypertension Hiatal hernia Hypothyroidism Mixed hyperlipidemia Steatosis of liver Vitamin D deficiency Surgical History H/O heart artery stent H/O tubal ligation History of cholecystectomy History of PTCA Family History Sister Breast cancer Social History Smoking Status: Never smoker ROS Const Const: Positive for headache(s) and difficulty sleeping; Negative for fatigue, weakness or daytime sleepiness Eyes Eyes: Negative for change in vision ENT ENT: Positive for headache(s); Negative for dizziness or Nosebleed/epistaxis Cardio Chest Pain: No Palpitations: No Edema: Bilateral (BLE sometimes) Resp Respiratory: Positive for SOB with activity; Negative for SOB at rest, SOB orthopnea\SOB lying down or Cough GI GI: Negative nausea, vomiting or heartburn Neuro Neuro: Positive for headache(s); Negative for dizziness, lightheadedness, near syncope or weakness Endo Endo: Negative for fatigue Cardiology Exam Const Appearance: cooperative, healthy appearing, no acute distress, well developed and well groomed Nutritional Appearance: average body habitus and well nourished Orientation: alert, awake and oriented x3 Head Head: normal to inspection, normocephalic and atraumatic Ears: hearing grossly normal bilaterally and external ears normal Nose: external nose normal, nares normal, nasal mucous membranes and turbinates normal, septum normal and no nasal discharge Face and Sinus: face symmetric Mouth: oral mucosae normal, tongue normal, oropharynx normal and moist mucous membranes Teeth and gingiva: dentition normal Throat: posterior oropharynx normal, tonsils normal and uvula midline Eyes General: appearance normal, both eyes and all related structures Eyelids: eyelids normal Conjunctivae: conjunctivae normal Pupils: PERRL, normal by confrontation and accommodation normal EOM: EOM intact bilaterally Neck Neck: normal visual inspection, trachea midline and no JVD JVD: +5 Carotids: normal carotid upstroke and bounding pulses Chest Chest inspection: normal inspection of the chest, symmetric chest movement and normal respiratory effort Auscultation: Bilateral: Clear to Auscultation Cardio Palpation: normal PMI Rate: regular rate Rhythm: regular rhythm Heart sounds: S1 normal, S2 normal and normal, physiologic split S2; Negative rub, gallop or murmur GI GI: normal to inspection, soft, no hepatosplenomegaly and bowel sounds present Neuro General: patient alert, patient awake, patient oriented x3, gait normal, moves all extremities and no focal sensory deficit Skin Skin: no rashes or lesions noted Extremities Pulses: Normal: Right Femoral Pulse, Left Femoral Pulse, Right Dorsalis Pedis Pulse, Left Dorsalis Pedis Pulse, Right Posterior Tibial Pulse, Left Posterior Tibial Pulse, Right Radial Pulse and Left Radial Pulse Lower Extremity Edema: None: Bilateral Musculoskel Musculoskeletal: No joint tenderness Psych Psychological: normal affect Supplemental Info Supplemental Information Stress Test (Lexiscan) 01/19/20 ([facility]) 01/19/20: Conclusion There is small sized area of moderate ischemia involving the mid anterior wall Post stress: Global systolic function is normal. EF=72%. The LV end-diastolic volume was 95ccs. The LV end-systolic volume was 27ccs. The stroke volume was 68ccs. At rest, the ejection fraction was 68%. Left Heart Cath 01/27/20 ([facility]): Conclusion Normal LV ejection fraction of 65-70% without abnormal wall motion abnormality. Borderline elevated LVEDP 17 mmHg Nonobstructive coronary artery disease Proximal LAD 50% discrete stenosis with mild calcification Mild in-stent restenosis less than 40% in the mid RCA without any significant angiographic stenosis Left circumflex artery, OM2, subbranch (upper branch, very small sized vessel) has 50-60% ostial stenosis Stress test from 04/13/2023: Pharmacologic myocardial perfusion stress test. 72-year-old lady with a history of chest pain Resting EKG demonstrates sinus rhythm with a rate of 60 bpm. Resting blood pressure is 134/72 mmHg. 0.4 mg of regadenoson was infused per usual protocol followed by rapid intravenous saline flush injection. Continuous EKG monitoringwas performed. The maximum heart rate was 85 bpm which was 58% of max impacted heart rate the maximum workload was 1 metabolic equivalent. At rest there were no ST or T wave changes noted to suggest ischemia and at peak infusion nonspecific ST changes were noted which did not meet the criteria for ischemia. No clinical angina is noted. The final blood pressure was 114/50 mmHg. Myocardial perfusion protocol. 15 mCi of technetium 99m sestamibi was injected at rest. 0.4 mg of regadenoson was infused per usual protocol. At peak infusion 45.0 mCi of technetium 99m sestamibi was injected stress images were obtained stress and rest images were reconstructed and compared in the short axis vertical long and horizontal long axis. Gated images were also obtained. Perfusion SPECT analysis: Review of the stress images demonstrate normal uptake of tracer noted in all areas of the myocardium. There is reduction of uptake noted in the mid anteriorwall on the stress images. The resting images similar demonstrated normal uptake of tracer noted in all areas of the myocardium. The above is suggestive of mid anterior ischemia. Gated SPECT analysis: The gated ejection fraction is 71. Conclusion: Abnormal pharmacologic myocardial perfusion stress test. There is anterior myocardial ischemia present. Preserved ejection fraction. Assessment and Plan Assessment and Plan (1) Coronary artery disease: Status: Acute Plan: She does have a history of coronary artery disease status post previous angioplasty and stenting. Her stress test from 04/13/2023 was abnormal, and demonstrated anterior myocardial ischemia. Would like to proceed with a cardiac catheterization to further assess this. Depending on results, further recommendations will be made. (2) Abnormal Stress Test: Will proceed with cardiac catheterization. 05/20/23 1148 <Electronically signed by Keith Roman MD> Cosigner Signature (if applicable): 05/19/23 1616 <Electronically signed by Ariella LAWSON> CC: RENNY Conway; Dr. Keith Roman MD; PADMINI LEONG~ Signed [facility] Work Phone: 1(194) 781-520110-16-2023 Evaluation note* Encounter Date Assessment Date Assessment 03/02/2023 03/02/2023 labs done, resul ts not received--will contact [facility] for results changing pulmonary physician to MD in [facility] OARRS reviewed [facility] 04-03-2023 Evaluation note* Encounter Date Assessment Date Assessment 08/18/2022 08/18/2022 nl DEXA 2018. nl colonoscopy 2014 [facility] 05-18-2022 Evaluation note No assessment recorded. Patient Targets Encounter Date Instructions Goals 10/02/2021 [facility] 08-14-2015 Reason for referral (narrative)* General Surgeon Referral for Screening for cancer screening colonoscopy; pt known to you Referring Physician: Zuri Carson, Internal Medicine, Encounter Date: 12/29/2014 Chiropractic And Massage Ref erral for Backache back pain Referring Physician: Zuri Carson, Internal Medicine, Encounter Date: 09/21/2015 [employer] Referral for Po stmenopausal bleeding Referring Physician: Sabiha Acosta, Internal Medicine, Encounter Date: 11/23/2018 Physical Therapist Referral for Pain in right knee Referring Physician: Sabiha Acosta, Internal Medicine, Encounter Date: 01/07/2019 Physical Therapist Referral for Neck pain Referring Physician: Padmini Leong Internal Medicine, Encounter Date: 04/04/2019 Orthopedic Referral for Cerv ical disc disorder Referring Physician: Padmini Leong, Internal Medicine, Encounter Date: 04/12/2019 Vestibular Therapy Referral for Dizziness Referring Physician: Sabiha Acosta, Internal Medicine, Encounter Date: 02/09/2020 Neurologist Referral for MRI of head abnormal Referring Physician: Sabiha Acosta Internal Medicine, Encounter Date: 02/28/2020 [employer] [facility] 08-14-2015 Reason for referral (narrative)* General Surgeon Referral for Screening for cancer screening colonoscopy; pt known to you Referring Physician: Zuri Carson Internal Medicine, Encounter Date: 12/29/2014 Chiropractic And Massage Ref erral for Backache back pain Referring Physician: Zuri Carson Internal Medicine, Encounter Date: 09/21/2015 Supervisor Sunglasses Referral for Po stmenopausal bleeding Referring Physician: Sabiha Acosta Internal Medicine, Encounter Date: 11/23/2018 Physical Therapist Referral for Pain in right knee Referring Physician: Sabiha Acosta Internal Medicine, Encounter Date: 01/07/2019 Physical Therapist Referral for Neck pain Referring Physician: Padmini Leong Internal Medicine, Encounter Date: 04/04/2019 Orthopedic Referral for Cerv ical disc disorder Referring Physician: Padmini Leong Internal Medicine, Encounter Date: 04/12/2019 Vestibular Therapy Referral for Dizziness Referring Physician: Sabiha Acosta Internal Medicine, Encounter Date: 02/09/2020 Neurologist Referral for MRI of head abnormal Referring Physician: Sabiha Acosta Internal Medicine, Encounter Date: 02/28/2020 Physical Therapist Referral for Thoracic back pain Referring Physician: Padmini Leong Internal Medicine, Encounter Date: 08/18/2022 [employer]. 08-14-2015 Reason for referral (narrative)* General Surgeon Referral for Screening for cancer screening colonoscopy; pt known to you Referring Physician: Zuri Carson Internal Medicine, Encounter Date: 12/29/2014 Chiropractic And Massage Ref erral for Backache back pain Referring Physician: Zuri Carson Internal Medicine, Encounter Date: 09/21/2015 Supervisor Sunglasses Referral for Po stmenopausal bleeding Referring Physician: Sabiha Acosta Internal Medicine, Encounter Date: 11/23/2018 Physical Therapist Referral for Pain in right knee Referring Physician: Sabiha Acosta Internal Medicine, Encounter Date: 01/07/2019 Physical Therapist Referral for Neck pain Referring Physician: Padmini Leong, Internal Medicine, Encounter Date: 04/04/2019 Orthopedic Referral for Cerv ical disc disorder Referring Physician: Padmini Leong, Internal Medicine, Encounter Date: 04/12/2019 Vestibular Therapy Referral for Dizziness Referring Physician: Sabiha Acosta, Internal Medicine, Encounter Date: 02/09/2020 Neurologist Referral for MRI of head abnormal Referring Physician: Sabiha Acosta, Internal Medicine, Encounter Date: 02/28/2020 Orthopedic Surgeon Referral for Pain of left knee joint post-op wound care (per [facility], NO AUTH REQUIRED- ref # [id number]) Referring Physician: Padmini Leong, Internal Medicine, Encounter Date: 07/22/2023 [facility] 03-20-2012 Evaluation note* Encounter Date Assessment Date Assessment 09/26/2020 09/26/2020 colonoscopy done 2015--10yr f/u advised no [place], no PVD Patient Targets Encounter Date Instructions Goals 09/26/2020 [facility], [facility] Evaluation + Plan note No data available for this section [facility] Evaluymovt note No assessment recorded. Patient Targets Encounter Date Instructions Goals 03/04/2021 [facility] Evaluation note* Encounter Date Assessment Date Assessment 04/03/2021 04/03/2021 had mammo per GY N--will get results for chart. nl DEXA 2018 Patient Targets Encounter Date Instructions Goals 04/03/2021 [facility] Evaluxyxrl noteNo assessment information available [facility] Work Phone: Evalucyvlb note No assessment recorded. [facility] Evaluation note* Diagnosis Onset Date Resolution Status Coronary artery disease acut e Essential (primary) hypertension acute Mixed hyperlipidemia acute [facility] Work Phone: Evaluation note* Diagnosis Onset Date Resolution Status Coronary artery disease acut e Essential (primary) hypertension acute Mixed hyperlipidemia acute Acute upper respiratory infection acute [facility] Work Phone: Evaluation note* Diagnosis Onset Date Resolution Status Acute upper respiratory infection acute [facility] Work Phone: History general Narrative - Reported* Condition Response GERD/Reflux Y Hypertension Y Liver Disease Y CAD Y Spinal disease Y Depression Y Hyperlipidemia Y Gynecological History Statement/Question Response Menses Monthly N Obstetrics History GPAL:G 4 P 4 0 0 3 Type Value Full Term 4 Living 3 Total 4 TrackVia History general Narrative - Reported* Condition Response CAD Y GERD/Reflux Y Hyperlipidemia Y Liver Disease Y Hypertension Y Spinal disease Y Depression Y Gynecological History Statement/Question Response Menses Monthly N Obstetrics History GPAL:G 4 P 4 0 0 3 Type Value Full Term 4 Living 3 Total 4 TrackVia Hisvyle general Narrative - Reported* Condition Response GERD/Reflux Y Hypertension Y CAD Y Liver Disease Y Spinal disease Y Depression Y Hyperlipidemia Y Gynecological History Statement/Question Response Menses Monthly N Obstetrics History GPAL:G 4 P 4 0 0 3 Type Value Full Term 4 Living 3 Total 4 [facility] Hisxedh general Narrative - Reported* Condition Response Hyperlipidemia Y CAD Y Depression Y GERD/Reflux Y Hypertension Y Liver Disease Y Spinal disease Y Gynecological History Statement/Question Response Menses Monthly N Obstetrics History GPAL:G 4 P 4 0 0 3 Type Value Full Term 4 Living 3 Total 4 [facility] Hisyoxl general Narrative - Reported* Condition Response CAD Y GERD/Reflux Y Liver Disease Y Hyperlipidemia Y Hypertension Y Depression Y Spinal disease Y Gynecological History Statement/Question Response Menses Monthly N Obstetrics History GPAL:G 4 P 4 0 0 3 Type Value Full Term 4 Living 3 Total 4 [facility] Hismqwg general Narrative - Reported* Condition Response CAD Y GERD/Reflux Y Liver Disease Y Hyperlipidemia Y Hypertension Y Spinal disease Y Depression Y Gynecological History Statement/Question Response Menses Monthly N Obstetrics History GPAL:G 4 P 4 0 0 3 Type Value Full Term 4 Living 3 Total 4 [facility] Hisbrqo general Narrative - Reported* Condition Response Depression Y Spinal disease Y CAD Y Hyperlipidemia Y GERD/Reflux Y Liver Disease Y Hypertension Y Gynecological History Statement/Question Response Menses Monthly N Obstetrics History GPAL:G 4 P 4 0 0 3 Type Value Full Term 4 Living 3 Total 4 [facility] Hisraiy general Narrative - Reported* Condition Response Depression Y CAD Y GERD/Reflux Y Spinal disease Y Liver Disease Y Hyperlipidemia Y Hypertension Y Gynecological History Statement/Question Response Menses Monthly N Obstetrics History GPAL:G 4 P 4 0 0 3 Type Value Full Term 4 Living 3 Total 4 [facility] Hispzjc general Narrative - Reported* Condition Response CAD Y GERD/Reflux Y Liver Disease Y Hyperlipidemia Y Hypertension Y Depression Y Spinal disease Y Gynecological History Statement/Question Response Menses Monthly N Obstetrics History GPAL:G 4 P 4 0 0 3 Type Value Full Term 4 Living 3 Total 4 [facility] Hisaabc general Narrative - Reported* Condition Response CAD Y GERD/Reflux Y Liver Disease Y Hyperlipidemia Y Hypertension Y Spinal disease Y Depression Y Gynecological History Statement/Question Response Menses Monthly N Obstetrics History GPAL:G 4 P 4 0 0 3 Type Value Full Term 4 Living 3 Total 4 [facility] Hospital Discharge instructions Additional Instructions Follow-up with your orthopedic doctor as discussed.[facility] Work Phone: Hospital Discharge instructions No data available for this section [facility] Progress note No data available for this section [facility] Reason for referral (narrative)No reason for referral information [facility] Work Phone: Summary Purpose Family History Relationship Description Onset Age of this Age Resolved Age Notes Sister Malignant tumor of breast Relationship Description Onset Age of this Age Resolved Age Notes Sister Malignant tumor of breast Relationship Condition Age at Onset Recorded Date/T aimee sister Malignant neoplasm of breast Unknown Relationship Description Onset Age of this Age Resolved Age Notes LastModified by Organization Details LastModified Time Sister Malignant tumor of breast prodocoy Not available 2018 14:23:52 Relationship Description Onset Age of this Age Resolved Age Notes LastModified by Organization Details LastModified Time Sister Malignant tumor of breast prodocoy Not available 2018 14:23:52 Advance Directives Advance Directive Response Recorded Date/ Time Living Will No February 25 8:34pm Power of Buncher Machine No February 25, 2022 8:34pm Advance Directive Response Recorded Date/ Time Living Will No February 25 7:34pm Power of Buncher Machine No February 25, 2022 7:34pm Advance Directive Response Recorded Date/ Time Advance Directives No June 08, 2023 9:38am Living Will No June 08 9:38am Power of Buncher Machine No June 08, 2023 9:38am Advance Directive Response Recorded Date/ Time Advance Directives No June 08, 2023 10:38am Living Will No August 04, 2023 7:51pm Power of Buncher Machine No August 03 7:51pm Advance Directive Response Recorded Date/ Time Advance Directives No June 08, 2023 10:38am Chief Complaint and Reason for Visit Chief Complaint LEFT KNEE PAIN Chief Complaint EST (SELF) I25.10 I25.10 Amb Documentation Amb Documentation Reason for Visit Coronary artery dise ase Essential (primary) hypertension Mixed hyperlipidemia Chief Complaint EST (SELF) I25.10 I25.10 Amb Documentation Amb Documentation ABNORMAL STRESS TEST COUGH, CONGESTION ABNORMAL STRESS TEST Reason for Visit Coronary artery dise ase Essential (primary) hypertension Mixed hyperlipidemia Acute upper respiratory infection Chief Complaint I25.10 I25.10 Amb Documentation Amb Documentation ABNORMAL STRESS TEST COUGH, CONGESTION ABNORMAL STRESS TEST Reason for Visit Acute upper respirat ory infection Chief Complaint I25.10 I25.10 Amb Documentation Amb Documentation ABNORMAL STRESS TEST COUGH, CONGESTION ABNORMAL STRESS TEST L KNEE TKA RX HERE Urinary trouble Reason for Visit Acute upper respirat ory infection Chief Complaint Admit Date E-ORDER June 27, 2024 12:16pm SEE NOTES June 28, 2024 10:37am Reason for Visit Admit Date Coronary artery disease June 28 025 10:37am Essential (primary) hypertension uar y 2024 10:37am Fatigue June 28, 2024 10:37am Mixed hyperlipidemia June 28, 2024 10:37am Additional Source Comments INFORMATION SOURCE (unrecogn ized section and content) DATE CREATED AUTHOR 01/31/2020 [facility] [place] DATE CREATED AUTHOR AUTHOR'S ORGANIZ ATION 08/04/2021 [facility] ([place]) DATE CREATED AUTHOR AUTHOR'S ORGANIZ ATION 09/24/2022 [facility] DATE CREATED AUTHOR AUTHOR'S ORGANIZ ATION 11/18/2022 [facility] DATE CREATED AUTHOR AUTHOR'S ORGANIZ ATION 08/24/2023 [facility] ([place]) DATE CREATED AUTHOR AUTHOR'S ORGANIZ ATION 09/29/2024 [facility] Goals (unrecognized section and content) Goals may be documented in a n alternate section Care Teams (unrecognized sec tion and content) Team Status: Active Member Role Status Dates PADMINI LEONG Primary Care Provider Active Team Status: Active Member Role Status Dates Dr. Keith Roman MD Attending Provider, Referring Provider, Other Provider Active ERASMO NORTON Primary Care Provider Active Team Status: Active Member Role Status Dates Teja Carvajal BILLIARD PARLOR MANAGER, BILLIARD PARLOR MANAGER-C Attending Provider Active Team Status: Active Member Role Status Dates Dr. Keith Roman MD Attending Provider, Referring Provider, Other Provider Active ERASMO NORTON Primary Care Provider Active Teja Carvajal BILLIARD PARLOR MANAGER, BILLIARD PARLOR MANAGER-C Other Provider Active Team Status: Inactive Member Role Status Dates Tam Bentley PA, PA Attending Provider Active Team Status: Inactive Member Role Status Dates Dr. Keith Roman MD Attending Provider, Referring Pro vider Active ERASMO NORTON Primary Care Provider Active Team Status: Inactive Member Role Status Dates Dr. Keith Roman MD Attending Provider, Referring Pro vider Active ERASMO NORTON Primary Care Provider Active Teja Carvajal BILLIARD PARLOR MANAGER, BILLIARD PARLOR MANAGER-C Other Provider Active Team Status: Inactive Member Role Status Dates SABA, WEI Attending Provider, Referring Provider Active ERASMO NORTON Primary Care Provider Active Team Status: Inactive Member Role Status Dates ERASMO NORTON Primary Care Provide r, Attending Provider, Referring Provider Active Team Status: Inactive Member Role Status Dates Dr. Keith Roman MD Attending Provider Active ERASMO NORTON Primary Care Provider, Referring Provi adeline Active Team Status: Inactive Member Role Status Dates Dr. Reyna Landon MD Emergency Provider Active Team Status: Active Member Role Status Dates ERASMO NORTON Primary Care Provider Active ASIYA WEBB Attending Provider, Referring Provider Active Team Status: Active Member Role Status Dates Dr. Padmini Leong MD Primary Care Provider Active Team Status: Inactive Member Role Status Dates Dr. Padmini Leong MD Primary Care Provider Active Start: June 27, 2024 End: June 27, 2024 Teja Carvajal BILLIARD PARLOR MANAGER, BILLIARD PARLOR MANAGER-C Attending Provider Active S tart: June 27, 2024 End: June 27, 2024 Teja Carvajal BILLIARD PARLOR MANAGER, BILLIARD PARLOR MANAGER-C Referring Provider Active S tart: June 27, 2024 End: June 27, 2024 Team Status: Inactive Member Role Status Dates Dr. Padmini Leong MD Primary Care Provider Active Start: June 28, 2024 End: June 28, 2024 Dr. Padmini Leong MD Referring Provider Active Start: June 28, 2024 End: June 28, 2024 Shantal Haines PA, PA Attending Provider Active Start: June 28, 2024 End: June 28, 2024 Team Status: Inactive Member Role Status Dates Dr. Padmini Leong MD Primary Care Provider Active Start: September 02, 2024 End: September 02, 2024 Dr. Padmini Leong MD Attending Provider Active Start: September 02, 2024 End: September 02, 2024 Dr. Padmini Leong MD Referring Provider Active Start: September 02, 2024 End: September 02, 2024 FOR RECORDS PERTAINING TO PATIENTS WHO ARE [...] BE BASED ON THE PRIMARY CLINICAL RECORDS. [facility]. provides no warranty or guarantee of the accuracy or completeness of information in this document.
[2024-10-22 13:15] VITALS: BP 158/68; PULSE 69; RESP 16; TEMP 36.6; O2SAT 96
== END 2024-10-22 13:57 | disposition short-term general hospital (02) ==
LOC: ED 12:27
PROVIDERS: Emergency Provider Emergency Medicine; PCP Internal Medicine; Referring Provider Emergency Medicine; Visit Provider Emergency Medicine
DX: S42.402A Unspecified fracture of lower end of left humerus, initial encounter for closed fracture (principal); W22.8XXA Striking against or struck by other objects, initial encounter; I25.10 Atherosclerotic heart disease of native coronary artery without angina pectoris; Z95.5 Presence of coronary angioplasty implant and graft
CPT/HCPCS: 70450; 70486; 71045; 72125; 73030; 73060; 73080; 80048; 85025; 90715; 93005; 96374; 96375; 99285; A4216

== ENCOUNTER → 2025-01-25 | Outpatient (CLI) | payer MEDICARE, SELFPAY ==
--- NOTE | 2025-01-25 | EMB_PTH ---
PATIENT: ANDREA TREVINO LOC: [facility] U#:[id number] AGE/SX: 74/F ROOM: RE01/25/[address]: RENNY Henriquez : 1950 BED: DIS: 01/25/2025 SPEC #: [id number] RECD: 01/25/25 12:30 STATUS: BRAD REQ #: [id number] AYE: 01/25/25 00:[address]: Amber Cancino NP DEPT: SURGICAL PATHOLOGY RECD BY: Hakeem Conn ENTERED: 01/25/25 13:35 SP TYPE: ENDOM BX/C OT DR: Dr. Padmini Zimmerman MD Tissues: A - Endometrium, NOS Procedures: Surgery Specimen Level IV HEADER OPERATION: Endometrial biopsy PRE-OP DIAGNOSIS: Post menopausal bleeding TISSUE SUBMITTED: A- Endometrial lining MICROSCOPIC DIAGNOSIS A. Endometrium, biopsy: - Proliferative-type endometrium, extensively fragmented - see note. Note: A limited amount of tissue is present. The fragmented nature of the tissue limits the assessment and a disordered proliferation or hyperplasia cannot be ruled out. No cytologic atypia is observed in these sections. MICROSCOPIC DESCRIPTION Slides are reviewed. GROSS DESCRIPTION A. Received in formalin labeled with the patient's name and date of is a 2.7 x 1.5 x 0.2 cm aggregate of mucoid material admixed with flecks of red apparent tissue. Entirely submitted in 1 cassette. Entirety of the specimen may not survive processing. [place] 01/25/2025 CPT:11215
== END | disposition home or self-care (01) ==
LOC: LABSPEC 09:35
PROVIDERS: PCP Internal Medicine; Referring Provider Nurse Practitioner Women's Health; Visit Provider Nurse Practitioner Women's Health
DX: N95.0 Postmenopausal bleeding (principal)
CPT/HCPCS: 88305

== ENCOUNTER → 2025-02-06 | Outpatient (CLI) | payer MEDICARE, SELFPAY ==
--- NOTE | 2025-02-06 13:19 | US_ITS ---
PROCEDURE: PELVIC W/ TRANSVAGINAL 02/06/2025 REASON FOR EXAM: BLEEDING TECHNIQUE: Procedure Code: [id number] Modality: US Procedure: PELVIC W/ TRANSVAGINAL COMPARISON: None. FINDINGS: Uterus: The anteverted uterus measures 8.3 x 5.3 x 4.0 cm. There is a nabothian cyst in the lower uterine segment. Endometrium: The endometrium measures 4 mm in thickness. Right ovary: Not visualized. Left ovary: Not visualized. Other: There is no free fluid in the pelvis. The urinary bladder is unremarkable. US/Pelvic w/ Transvaginal IMPRESSION: The uterus and bladder are unremarkable. The ovaries are not identified. Reading Location: [id number]
--- NOTE | 2025-02-06 14:45 | BI_ITS ---
EXAM: SCRN MAMM (CAD)W/RYAN BILAT DATE: 02/06/2025 CLINICAL HISTORY: F, Age 74 y/o , SCREEN TECHNIQUE: Procedure Code: [id number] Modality: MG Procedure: SCRN MAMM (CAD)W/RYAN BILAT COMPARISON: Prior exam(s) were compared FINDINGS: TISSUE DENSITY: The breasts are heterogeneously dense, which may obscure small masses. Bilateral Breast Mammographic Findings: No suspicious masses, calcifications or other abnormalities are identified. BI/SCRN MAMM (CAD)W/RYAN BILAT IMPRESSION: No mammographic evidence of malignancy in either breast. OVERALL FINAL ASSESSMENT BI-RADS 1: NEGATIVE. RECOMMENDATION: Routine annual follow-up in 1 Year Additional Recommendation none A letter with findings and recommendations will be mailed to the patient. Reading Location: [id number]
== END | disposition home or self-care (01) ==
LOC: US 13:15
PROVIDERS: PCP Internal Medicine; Referring Provider Nurse Practitioner Women's Health; Visit Provider Nurse Practitioner Women's Health
DX: Z12.31 Encounter for screening mammogram for malignant neoplasm of breast (principal); N95.0 Postmenopausal bleeding; N85.2 Hypertrophy of uterus
CPT/HCPCS: 76830; 76856; 77063; 77067

== ENCOUNTER 2025-02-08 14:30 | Outpatient (RCR) | payer MEDICARE, SELFPAY ==
--- NOTE | 2025-01-27 15:52 | HP.PTEVAL ---
Patient's Visit Information Visit Information Visit Information: ANDREA TREVINO is a 74 year old F referred to Physical Therapy by SABA CARVAJAL with a diagnosis of R knee pain. Date of Evaluation: 01/27/25 Physical Therapist: Tushar Paul, PT, ATC Visit Plan Frequency: 2x /Week Duration: 1 Week Plan: Issue and instruct pt on HEP of B LE strengthening and core stab ex's Subjective Subjective: Pt reports she had R TKA performed 3 years ago. Pt notes she has never been right since. Pt notes she gets an occasional shooting pain in her R knee which will bring her to tears. Pt notes she does have LBP at this time . Pt notes she has a very difficult time rolling over in bed secondary to her pain. Pt reports most of her pain is on the medial aspect of her R knee. Pt notes she has significant sleep difficulty secondary to pain and has to sleep in a recliner as a result. Pt notes her pain will shoot from her knee to her right groin at times. Pt reports she has had recent x-rays which she was told that everything looks fine. Pt reports prolonged ambulation increases her pain. Pt notes she has difficulty with getting into bed secondary to her R hip feeling like it weighs a ton. Pt reports R knee pain ranges from 3-6/10 Pain R knee: Pain Intensity (Out of 10): 3 Pain Intensity Range: 6 Objective Objective: Neuro: R L4 dermatome is hyposensitive to light touch. All other B LE sensation is WNL to light touch. Palpation: Pt is very tender throughout the medial portion of her R knee. No obvious deformity is present at this time. ROM: L knee 0-100 degrees ; R knee 0-105 degrees MMT: L knee flex= 23, ext= 17 #F; R knee flex= 11, ext= 14 #F L/S repeated movements: MONICA periperalized sx's. seated flex in sitting decreased pain. Balance/Special Test Scores Lower Extremity Functional Score: 42 Goals Goal 1:: I with HEP Goal Time Frame: 4-6 Weeks Rehabilitation Potential Physical Therapy Diagnosis: Pt has R knee pain, intolerance for ambulation, and difficulty with sleep secondary to degenerative changes in L/S and R knee. Rehabilitation Potential: Good Anticipated Interventions Patient/Client Instruction: Educate patient on: Condition and Plan of Care For the Purpose of:: To improve self management Therapeutic Exercise to Include: Strength training, Endurance training, Body mechanics, Postural training, Flexibilty training and Dynamic Lumbar Stabilization For the Purpose of:: To decrease pain, To increase ROM and To improve muscle performance and motor function Text: Thank you for the opportunity to evaluate your patient. For Medicare and Medicare HMO plans, please review the plan of care and approve it. It will need to be FAXED BACK to us at [phone] for Medicare purposes. For Medicare only, by signing this I certify the plan of care. Please let me know if there are questions or concerns regarding this plan of care. Physician Signature: Date:
== END 2025-02-08 19:00 | disposition home or self-care (01) ==
LOC: PT 14:30
PROVIDERS: PCP Internal Medicine
DX: M25.561 Pain in right knee (principal)
CPT/HCPCS: 97110; 97161